=== PATIENT | male | born 1930 | race Caucasian/White ===

== ENCOUNTER 2017-08-22 11:10 | Inpatient (IN) | payer OTHER ==
[~2017-08-22] VITALS: Ht 177.8 cm; Wt 73.8 kg
[~2017-08-22 11:10] MED LIST: CLOT1CRE47 TOP; INSDGIPEN SQ; LSN20 PO; NRV/10 PO; SILV1PAD9 EX; [UNRECOGNIZED DRUG - CODE] EXT
--- NOTE | 2017-08-22 12:04 | DIAGNOSTIC IMAGING REPORT ---
CHEST ONE VIEW PORTABLE CLINICAL HISTORY: chest pain SOB dyspnea COMPARISON STUDY: 02/14/2015 FINDINGS: Mild cardia megaly. Several placement of a bipolar cardiac pacemaker. Prominent pulmonary vasculature. Possible small left effusion. IMPRESSION: Congestive heart failure. Small left effusion. The above report was generated using voice recognition software. It may contain grammatical, syntax or spelling errors. Electronically signed by: Patrick Aquino M.D. 08/22/2017 12:03 PM Dictated Date/Time: 08/22/2017 12:02 PM
[2017-08-22 12:10] LABS: HEMATOCRIT 35.2 % (42-52); HEMOGLOBIN 11.5 g/dL (14.0-18.0); MEAN CELL VOLUME 91.4 fL (80-100); MEAN CORPUSCULAR HEMOGLOBIN 29.9 pg (25-34); MEAN CORPUSCULAR HGB CONC 32.7 g/dl (32-36); MEAN PLATELET VOLUME 9.4 fL (7.4-10.4); PLATELET COUNT 258 K/uL (130-400); RED CELL DISTRIBUTION WIDTH CV 15.2 % (11.5-14.5); RED CELL DISTRIBUTION WIDTH SD 51.2 fL (36.4-46.3); WHITE BLOOD COUNT 8.14 K/uL (4.8-10.8)
[2017-08-22 12:16] LABS: ALBUMIN 3.2 gm/dl (3.4-5.0); CALCIUM 8.4 mg/dl (8.5-10.1); CREATININE 2.14 mg/dl (0.60-1.40); POTASSIUM 4.8 mmol/L (3.5-5.1)
[2017-08-22 12:21] LABS: CKMB 11.8 ng/ml (0.5-3.6); TOTAL PROTEIN 6.6 gm/dl (6.4-8.2)
[2017-08-22] MEDS ORDERED: ASPIRIN 81 MG CHEW PO STA (12:25)
--- NOTE | 2017-08-22 12:29 | EMERGENCY ROOM VISIT NOTE ---
History Report prepared by Cirilo: Abraham Gilmore Under the Supervision of: Dr. Dusty Shirley M.D. First contact with patient: 11:51 Chief Complaint: CHEST PAIN Stated Complaint: CHEST PAIN, SOB Nursing Triage Summary: pt /co left upper chest pain for several days with c/o SOB and a cough pt states that he is coughing up white sputum no LE edema History of Present Illness The patient is a 86 year old male who presents to the Emergency Room with complaints of persistent sharp left-sided chest pain that began about 5 days ago. He rates his pain a 5/10 in severity. He has a past medical history of CAD , critical aortic stenosis, and has a pacemaker in place. He is currently being workup to eventually have a TAVR procedure. When his pain began, the patient was being very active outside, cutting and moving wood. He then began to have this chest with associated shortness of breath. His pain persisted throughout this time, but worsened with exertion. He is also experiencing a productive cough, nausea, and lightheadedness. He denies any swelling to his legs. He took Aspirin 81 mg PO this morning. Source of History: patient Onset: 5 days ago Position: chest (left) Symptom Intensity: 5/10 Quality: sharp Timing: constant Modifying Factors (Worsening): exertion Associated Symptoms: + cough, + SOB, + nausea Note: He is experiencing lightheadedness. He denies any leg swelling. Review of Systems See HPI for pertinent positives & negatives. A total of 10 systems reviewed and were otherwise negative. Past Medical & Surgical Medical Problems: (1) CKD (chronic kidney disease) stage 3, GFR 30-59 ml/min (2) Coronary artery disease (3) Diabetes mellitus, type II (4) Diastolic CHF, chronic (5) Diverticulosis (6) Essential hypertension (7) Gangrene of foot (8) Heart block AV second degree (9) Intra-abdominal abscess (10) Peripheral vascular disease Surgical Problems: (1) Status post cholecystectomy (2) Status post exploratory laparotomy (3) Status post transmetatarsal amputation of foot Family History No significant family history Social History Smoking Status: Never Smoker Alcohol Use: none Drug Use: none Marital Status: single, Housing Status: lives alone Occupation Status: retired Current/Historical Medications Scheduled Amlodipine (Norvasc), 10 MG PO DAILY Aspirin (Aspirin Ec), 81 MG PO DAILY Coenzyme Q10 (Ubidecarenone) (Coq-10), 100 MG PO DAILY Ferrous Sulfate (Kp Ferrous Sulfate), 325 MG PO DAILY Insulin Glargine (Lantus Solostar), 8 UNITS SC QPM Lisinopril (Zestril), 20 MG PO DAILY Allergies Coded Allergies: No Known Allergies (Unverified , 08/22/17) Physical Exam Vital Signs Date Time Temp Pulse Resp B/P (MAP) Pulse Ox O2 Delivery O2 Flow Rate FiO2 08/22/17 12:34 91 20 97/61 93 Room Air 08/22/17 12:20 88 08/22/17 11:43 94 Room Air 08/22/17 11:14 36.7 91 20 92/61 98 Room Air Physical Exam GENERAL: Patient is a healthy-appearing well-nourished male HEAD: Normocephalic atraumatic EYES: Ocular movements intact pupils equal and react to light OROPHARYNX mucous membranes are moist no exudates present no erythema or edema present NECK: Supple no nuchal rigidity CHEST: Good equal expansion LUNGS: Clear and equal to auscultation CARDIAC: Grade 3/6 systolic murmur. Normal S1 and S2 ABDOMEN: Soft nontender no guarding BACK: No CVA tenderness EXTREMITIES: No pain upon palpation normal muscle strength in all groups no clubbing cyanosis or edema, there is a chronic deformity to the LLE. NEURO: Patient is following commands and answering questions appropriately. Alert and oriented x3 Cranial Nerves 2-12 grossly intact Medical Decision & Procedures ER Provider Diagnostic Interpretation: Radiology results as stated below per my review and radiologist interpretation: CHEST ONE VIEW PORTABLE CLINICAL HISTORY: chest pain SOB dyspnea COMPARISON STUDY: 02/14/2015 FINDINGS: Mild cardia megaly. Several placement of a bipolar cardiac pacemaker. Prominent pulmonary vasculature. Possible small left effusion. IMPRESSION: Congestive heart failure. Small left effusion. The above report was generated using voice recognition software. It may contain grammatical, syntax or spelling errors. Electronically signed by: Patrick Aquino M.D. 08/22/2017 12:03 PM Dictated Date/Time: 08/22/2017 12:02 PM Laboratory Results 08/22/17 11:25 08/22/17 11:25 Test 08/22/17 11:25 08/22/17 11:45 08/22/17 12:32 Red Blood Count 3.85 M/uL (4.7-6.1) Mean Corpuscular Volume 91.4 fL (80-100) Mean Corpuscular Hemoglobin 29.9 pg (25-34) Mean Corpuscular Hemoglobin Concent 32.7 g/dl (32-36) RDW Standard Deviation 51.2 fL (36.4-46.3) RDW Coefficient of Variation 15.2 % (11.5-14.5) Mean Platelet Volume 9.4 fL (7.4-10.4) Prothrombin Time 10.7 SECONDS (9.0-12.0) Prothromb Time International Ratio 1.0 (0.9-1.1) Activated Partial Thromboplast Time 29.0 SECONDS (21.0-31.0) Partial Thromboplastin Ratio 1.1 Anion Gap 12.0 mmol/L (3-11) Est Creatinine Clear Calc Drug Dose 24.6 ml/min Estimated GFR () 30.9 Estimated GFR (Non- 26.7 BUN/Creatinine Ratio 21.6 (10-20) Calcium Level 8.4 mg/dl (8.5-10.1) Total Bilirubin 0.5 mg/dl (0.2-1) Aspartate Amino Transf (AST/SGOT) 42 U/L (15-37) Alanine Aminotransferase (ALT/SGPT) 34 U/L (12-78) Alkaline Phosphatase 84 U/L (45-117) Total Creatine Kinase 142 U/L (39-308) Creatine Kinase MB 11.8 ng/ml (0.5-3.6) Creatine Kinase MB Ratio 8.3 (0-3.0) Troponin I 5.360 ng/ml (0-0.045) Pro-B-Type Natriuretic Peptide > 64092 pg/ml (0-1800) Total Protein 6.6 gm/dl (6.4-8.2) Albumin 3.2 gm/dl (3.4-5.0) Globulin 3.4 gm/dl (2.5-4.0) Albumin/Globulin Ratio 0.9 (0.9-2) Bedside Troponin I 5.510 ng/ml (0-0.045) Influenza Type A Antigen Neg for Influ A (NEG) Influenza Type B Antigen Neg for Influ B (NEG) Labs reviewed by ED physician. Medications Administered Medications (Trade) Dose Ordered Sig/Isaiah Route Start Time Stop Time Status Last Admin Dose Admin Aspirin (Aspirin Chew) 324 mg NOW STAT PO 08/22/17 12:25 08/22/17 12:27 DC 08/22/17 12:34 324 MG ECG Indication: chest pain Rate (beats per minute): 99 Rhythm: other (Paced) Findings: no acute ischemic change, no ectopy Change: Patient's electrocardiogram per my interpretation. ED Course 1151: Past medical records reviewed. The patient was evaluated in room C6. A complete history and physical examination was performed. 1225: Ordered Aspirin 324 mg PO 1228: I discussed the patient's case with Dr. Xiong of [facility] Cardiology at this time. He will come to the ER to evaluate the patient. 1316: Upon reexamination the patient is resting. I discussed results and treatment plan with the patient. He and his daughter verbalize agreement and understanding. I spoke with Dr. Estrada from the [facility] Hospitalist Service. The patient will be evaluated for further management. Medical Decision Differential diagnosis: Etiologies such as cardiac ischemia, aortic dissection, pulmonary embolism, pneumonia, pneumothorax, musculoskeletal, infections, pericarditis, myocarditis , esophageal rupture, gastrointestinal, as well as others were entertained. This is an 86-year-old male who presents emergency department complaining of chest pain with exertion over the past 5 days. The patient has a history of critical aortic stenosis and has been waiting to go to the [facility]. Despite this the patient and his daughter had to be redirected numerous times to keep them on track with the story. Due to the critical aortic stenosis the patient was given aspirin. He has a nondiagnostic EKG due to his pacer. Because of his comorbidities he was immediately discussed with cardiology who agreed to come and see the patient. They discussed the case with the hospitalist service. In the emergency department the patient was started on Lasix as well as a heparin drip. His troponin CK and MB fractions are all elevated consistent with an NSTEMI. Medication Reconcilliation Current Medication List: was personally reviewed by me Blood Pressure Screening Patient's blood pressure: Low blood pressure Consults Time Called: 1220 Consulting Physician: Dr. Xiong - [facility] Returned Call: 1228 We discussed the patient's case. He will be into the ER to evaluate the patient. Additional Consults: Time Called: 1310 Consulted Physician: Dr. Sean Arellano Hospitalist Returned Call: 1316 Additional Comments: I discussed the patient's case with Dr. Estrada, they have agreed to evaluate the patient for further management and care. Impression Primary Impression: NSTEMI (non-ST elevated myocardial infarction) Critical Care I have personally spent greater than 30 minutes of critical care time in the direct management of this patient. This includes bedside care, interpretation of diagnostic studies, and testing, discussion with consultants, patient, and family members, and other required patient management activities. This 30 minutes is in excess of all separately billable procedures. Scribe Attestation The scribe's documentation has been prepared under my direction and personally reviewed by me in its entirety. I confirm that the note above accurately reflects all work, treatment, procedures, and medical decision making performed by me. Departure Information Dispostion Being Evaluated By Hospitalist Referrals Ricki Juarez D.O. (PCP) Patient Instructions [facility]
[2017-08-22] MEDS ORDERED: COEN100C11 PO (12:35)
[2017-08-22] MEDS ORDERED: FERR1TAB13 PO (12:35)
[2017-08-22] MEDS ORDERED: AMLO-114 PO (12:35)
[2017-08-22] MEDS ORDERED: ASPI81TA28 PO (12:35)
[2017-08-22] MEDS ORDERED: INSDGIPEN SC (12:35)
[2017-08-22] MEDS ORDERED: LISI-725 PO (12:35)
--- NOTE | 2017-08-22 13:11 | Cardiology Progress Note ---
Cardiology Progress Note Date of Service Aug 22, 2017. Cardiology Progress Note Cardiology consultation in process. Patient known to the undersigned having seen him as outpatient in 04/2017. Pt has history of critically severe AV stenosis and intermittent high grade AV block. Pt underwent dual chamber PPM in 05/2017. He present with 5 days of severe shortness of breath with minimal exertion, non productive cough without fever, and chest pain. EKG V paced rhythm at 99 bpm, non diagnostic for ischemia given RV pacing. Troponin =5 ng/ml. Pt seen acutely in ED per request of Dr Shirley. Flu screen has been completed and results are pending. At present I believe pt's presentation is consistent with progression of symptomatic and heart failure, perhaps with superimposed influenza or other respirator tract infection rather than acute OK. CP he describes currently is low grade, mild and may be in part due to the severe cough he has demonstrated. Baseline creatinine was 1.7 mg/dl in 05/2017 and 2 mg/dl today. Proceed with furosemide 40 mg IV. UF heparin for medical therapy of OK, although I do not think ACS is the definite culprit given known critical . Given acute kidney injury and comorbidities, will proceed with cautious medical therapy rather than proceeding to the specialist employee labor relations for emergent angiography in this frail 86 year old man.
[2017-08-22] MEDS ORDERED: FUROSEMIDE INJ 40 MG in SYRINGE 0 ML IV ONE ×2 (13:15→14:45)
[2017-08-22] MEDS ORDERED: HEPARIN 25000 UNIT/500 ML D5W ONE (13:38)
[2017-08-22 13:45] LABS: INFLUENZA B ANTIGEN Neg for Influ B (NEG)
[2017-08-22] MEDS ORDERED: ACETAMINOPHEN 325 MG TAB PO PRN (13:45)
[2017-08-22 14:27] VITALS: O2SAT 98; Ht 177.8 cm; Wt 73.8 kg
--- NOTE | 2017-08-22 14:35 | Cardiology Consultation ---
Cardiology Consultation Date of Consultation: Aug 22, 2017 History of Present Illness Ganesh Segura is an 86 year old male seen in cardiology consultation in the ED per the request of Dr Shirley for the evaluation of shortness of breath, chest discomfort, and elevated troponin I. The patient's recent cardiac history dates back to April 2017. He had been seen by his primary care provider for preoperative evaluation prior to proposed knee surgery. At the time of that visit he was found to have significant bradycardia on EKG and progression of his previously noted cardiac murmur. He was therefore referred for a transthoracic echocardiogram at our office during which time intermittent high-grade AV block was noted. I was actually the provider reading echocardiograms that day and his echocardiogram had revealed progression of his previously noted aortic valve stenosis with findings consistent with critically severe aortic valve stenosis including peak velocity of 4.7 m/s and mean gradient approaching 60 mmHg. Arrangements were made for a cardiology visit the next day, but the patient did not keep this appointment and instead presented the next week. At that time we discussed that he was not a candidate for intervention and that his bradycardia needs to be addressed. Previously had findings of intermittent type I second-degree AV block, Wenckebach block on EKG performed a few years prior to that. The patient underwent outpatient cardiac monitoring recommended at that time his visit in April 2017 that revealed intermittent high-grade AV block. He ultimately went on to have a dual-chamber Medtronic pac[place] [facility] [place]. Review of his chart reveals that he attended his 1 week post-device pacemaker check on 06/01/17 at which time her pacemaker function was noted and the patient was paced from the right ventricle 99% at that time. It does not appear he kept future pacemaker check appointments per review of his chart. Regarding his aortic valve stenosis. I had discussed options with him regarding ongoing conservative noninvasive therapy or perhaps consideration toward transcatheter aortic valve replacement. He declined local evaluation including evaluation at [facility] favoring having an opinion at [facility]. The patient enjoys vigorous outdoor lifestyle for his age and degree of comorbidity. 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 He last 5 days he has had progressive decline in his activity tolerance with noted severe shortness of breath and fatigue with minimal activity such as walking a few steps. Breath in seeking medical treatment at first he has just been resting. His daughter who is sitting with him at the bedside in the emergency room today notes that he would sit on the floor by his fireplace for relief. Over the last 5 days his symptoms have been progressive and is also had a vague low intensity chest discomfort that goes along with his shortness of breath and tiredness and is also developed a significant nonproductive cough. When he presented to the emergency room he was found to have heart rate in the upper 90 be per minute range with ventricular paced rhythm. His troponin was elevated at 5.5 ng/ml. Assessment the patient emergently for further evaluation. During my assessment the patient he provided the above history. He describes that his most significant complaints are the cough, shortness of breath, and tiredness. Severe chest pain is not his chief complaint and describes a vague mild discomfort at the lower margin of the left ribs. Past Medical/Surgical History Problem List: Medical Problems: (1) CKD (chronic kidney disease) stage 3, GFR 30-59 ml/min (2) Coronary artery disease (3) Diabetes mellitus, type II (4) Diastolic CHF, chronic (5) Diverticulosis (6) Essential hypertension (7) Gangrene of foot (8) Heart block AV second degree (9) Intra-abdominal abscess (10) Peripheral vascular disease Surgical Problems: (1) Status post cholecystectomy (2) Status post exploratory laparotomy (3) Status post transmetatarsal amputation of foot History Past Medical History: Critically severe aortic valve stenosis as noted above Intermittent high-grade AV block, permanent dual-chamber Medtronic pacemaker May, Social History: Lives independently, his daughter lives close by and offers assistance Review Of Systems 10 point review of systems was performed and is negative with the exception of that above. He denies any subjective fevers or myalgias Allergies Coded Allergies: No Known Allergies (Unverified , 08/22/17) Medications Reported Home Medications Medications Dose Route/Sig Max Daily Dose Days Date Category Lantus Solostar (Insulin Glargine) 100 Unit/Ml Inj 8 Units SC QPM 08/22/17 Reported Coq-10 (Coenzyme Q10 (Ubidecarenone)) 100 Mg Cap 100 Mg PO DAILY 08/22/17 Reported Kp Ferrous Sulfate (Ferrous Sulfate) 325 Mg Tab 325 Mg PO DAILY 08/22/17 Reported Zestril (Lisinopril) 20 Mg Tab 20 Mg PO DAILY 08/22/17 Reported Aspirin Ec (Aspirin) 81 Mg Tab 81 Mg PO DAILY 08/22/17 Reported Norvasc (Amlodipine Besylate) 10 Mg Tab 10 Mg PO DAILY 08/22/17 Reported Physical Exam Vital Signs (Last 8hrs): Last 8 Hrs Date Time Temp Pulse Resp B/P (MAP) Pulse Ox O2 Delivery O2 Flow Rate FiO2 08/22/17 13:49 95 24 95/68 98 Room Air 08/22/17 12:34 91 20 97/61 93 Room Air 08/22/17 12:20 88 08/22/17 11:43 94 Room Air 08/22/17 11:14 36.7 91 20 92/61 98 Room Air General Appearance: Alert and Oriented x3. Acutely on appearance Head: Normocephalic Atraumatic. Eyes: PERRLA, EOMI, conjunctiva and sclera clear Neck: Supple. No carotid bruits noted. No JVD. No HJD. Respiratory: Breath sounds clear to auscultation bilaterally. Decreased breath sounds bilaterally at the bases Cardiovascular: Reg rate and rhythm. 08/22 systolic murmur Abdomen: Normal bowel sounds, soft nontender. no abdominal bruits. Extremities: No edema, no clubbing or cyanosis. distal pulses 2/4 bilaterally. Neuro: No focal deficits. Psychiatric: Normal affect. Data Last Resulted 08/22/17 11:25 Last Resulted 08/22/17 11:25 Past 24 Hours Test 08/22/17 11:25 Range/Units Creatine Kinase MB 11.8 H 0.5-3.6 ng/ml Creatine Kinase MB Ratio 8.3 H 0-3.0 Prothromb Time International Ratio 1.0 0.9-1.1 Prothrombin Time 10.7 9.0-12.0 SECONDS Total Creatine Kinase 142 39-308 U/L [id number] troponin 5.5 ng/ml. Influenza screen negative. CXR: radiology report, findings of CHF and small left pleural effusion EKG performed 08/22/17 reveals Vpaced rhythm at 99 bpm. Changes of acute ischemia cannot be excluded with J point elevation in lead V1 and lateral ST depression Assessment & Plan Impression: 86 year old male 1. Patient presents with a five-day history of debilitating fatigue, shortness of breath with minimal exertion, progressive nonproductive cough, and low level chest discomfort 2. Known history of critically severe aortic valve stenosis based on echocardiogram in April 2017, normal LVEF at that time 3. History of intermittent high-grade AV block, prompting implantation of dual- chamber pacemaker May, Discussion/recommendations: Although the patient denies any subjective fever, he has a significant cough and certainly he is at risk for having a superimposed pulmonary infection such as influenza. His initial screening tests were negative, but plan on proceeding with the confirmatory PCR testing. The patient was initially assessed with the intent of determining if emergent cardiac catheterization was necessary. He has a ventricular paced rhythm which limits the diagnostic sensitivity, but does appear that he has some degree of J- point elevation as well as ST segment depression. His symptoms however have been ongoing for greater then 5 days which is out of the typical window of benefit for emergent cardiac catheterization and at present, he minimizes any symptoms of chest pain and describes shortness of breath as being his predominant symptom. This of course could all be due to his underlying severe aortic valve stenosis with a superimposed viral infection, or he could have existent coronary heart disease. His baseline creatinine in May 2017 was 1.7, and his creatinine at present was 2.14 mg/dL. His systolic blood pressures little low in the 90 mmHg range, but this is not too much different from his baseline blood pressure. At present, recommend proceeding with conservative therapy including furosemide 40 mg IV 1. I'm not going to order any additional diuretic doses in favor of reassessing his blood pressure, kidney function, and clinical response. Proceed with unfractionated heparin for treatment of possible underlying coexistent coronary heart disease. Will repeat his echocardiogram. Given the timing of his symptoms had been progressive over 5 days with minimal current chest discomfort, somewhat equivocal EKG changes in the setting of ventricular paced rhythm, clinical history of critically severe aortic valve stenosis, and other comorbidities including presumed peripheral arterial disease and renal insufficiency, I do not think emergent cardiac catheterization is appropriate management for him at this time.
--- NOTE | 2017-08-22 17:56 | ECHOCARDIOGRAM REPORT ---
*NOTICE TO RECEIVING LIBERTARIAN AGENCY This information is strictly Confidential and protected under [place] law. [place] law prohibits you from making any further disclosure of this information unless further disclosure is expressly permitted by the written consent of the person to whom it pertains or is authorized by law. A general authorization for the release of medical or other information is not sufficient for this purpose. Hospital accepts no responsibility if the information is made available to any other person, INCLUDING THE PATIENT. Interpretation Summary * Name: GERARDO NICK Study Date: 08/22/2017 04:00 PM BP: 95/68 mmHg * Patient Location: C.2T\S\S235\S\1 HR: 96 * : 1930 (M/d/yyyy) Gender: Male Height: 70 in * Age: 86 yrs Ethnicity: [place] Weight: 167 lb * Ordering Physician: Silvestre Xiong * Referring Physician: Self, Referred * Performed By: Kourtney Alvarez RDCS * * Reason For Study: CHEST PAIN, CHF, KNOWN CRITICALLY SEVERE * BSA: 1.9 m2 * -- Conclusions -- * A ventricular paced rhythm at 97 bpm was present during the echocardiogram, with Doppler data consistent with sinus tachycardia. * There is moderate concentric left ventricular hypertrophy. * Abnormal septal wall motion is present consistent with right ventricular pacing. * There is diffuse left ventricular hypokinesis to akinesis with akinesis of the apical segments. * Left ventricular systolic function is severely reduced. * The qualitative left ventricular ejection fraction is < 25%. * The aortic valve is severely calcified with severe restriction of the cusps. * The Doppler and 2D assessment of aortic valve stenosis are discordant. * The aortic valve stenosis appears severe, and the severity appears to be underestimated by the Doppler assessment. * Compared to the prior outpatient echocardiogram study performed at [facility] in April,, there has been and interval placement of a pacemaker. * There has been an interval decline in the LVEF. * The Doppler data was consistent with severe on the prior study, and perhaps the low gradients calculated on the present study are due to an interval decline in LVEF and cardiac output. Procedure Details * A contrast injection of Definity was performed to improve assessment of LV function. * Contrast was injected into an intravenous site in the left arm. * One vial of Definity ultrasound contrast was diluted in normal saline to a total volume of 10 ml. A total of '2' ml of solution was administered during imaging. * Lot # [id number] of Definity utilized for procedure. * Expiration date 1 SEP 04. * The attending nurse who injected the contrast agent was JORDANA LYLES. * A complete two-dimensional transthoracic echocardiogram was performed (2D, M-mode, Doppler and color flow Doppler). Left Ventricle * The left ventricle is normal in size. * There is moderate concentric left ventricular hypertrophy. * Left ventricular systolic function is severely reduced. * The qualitative left ventricular ejection fraction is < 25%. * Abnormal septal wall motion is present consistent with right ventricular pacing. There is diffiuse left ventricular hypokinesis to akinesis with akinesis of the apical segments. Right Ventricle * The right ventricle is normal in size and function. * The right ventricular systolic function is normal as assessed by tricuspid annular plane systolic excursion (TAPSE) (normal >1.5 cm). Atria * The left atrium is severely dilated. * The right atrium is mildly dilated. * A pacemaker lead is noted in the right atrium. * There is no evidence of atrial septal defect, but resolution does not allow assessment for a patent foramen ovale. Mitral Valve * There is moderate mitral annular calcification. * There is no mitral valve stenosis. * There is mild mitral regurgitation. Tricuspid Valve * The tricuspid valve is normal. * There is no tricuspid stenosis. * There is mild tricuspid regurgitation. Aortic Valve * The aortic valve is trileaflet. * The aortic valve is severely calcified with severe restriction of the cusps. * Severe valvular aortic stenosis. * There is no significant aortic regurgitation. Pulmonic Valve * The pulmonary valve is inadequately visualized, but the Doppler data is adequate for interpretation. * Pulmonic stenosis is absent. * Mild pulmonic valvular regurgitation. Great Vessels * The aortic root and proximal ascending aorta are normal sized. Pericardium/Pleural * There is no pericardial effusion. * Moderate size left pleural effusion. Right Ventricle * A pacemaker lead is noted in the right ventricle. Great Vessels * Normal inferior vena cava size and collapsability with sniff indicates a normal right atrial pressure of 3 mmHg MMode 2D Measurements and Calculations IVSd 1.3 cm IVSs 1.8 cm LVIDd 4.6 cm LVIDs 3.7 cm LVPWd 1.5 cm LVPWs 1.9 cm IVS/LVPW 0.85 FS 19.1 % EDV(Teich) 95.9 ml ESV(Teich) 58.0 ml EF(Teich) 39.5 % EDV(cubed) 95.5 ml ESV(cubed) 50.5 ml EF(cubed) 47.1 % % IVS thick 45.0 % % LVPW thick 28.0 % LV mass(C)d 245.0 grams LV mass(C)dI 126.7 grams/m\S\2 LV mass(C)s 296.1 grams LV mass(C)sI 153.2 grams/m\S\2 SV(Teich) 37.9 ml SI(Teich) 19.6 ml/m\S\2 SV(cubed) 45.0 ml SI(cubed) 23.3 ml/m\S\2 LA dimension 4.4 cm LVOT diam 1.9 cm LVOT area 2.9 cm\S\2 LVAd ap4 34.1 cm\S\2 LVLd ap4 8.5 cm EDV(MOD-sp4) 109.8 ml EDV(sp4-el) 117.0 ml LVAs ap4 27.5 cm\S\2 LVLs ap4 8.1 cm ESV(MOD-sp4) 75.4 ml ESV(sp4-el) 79.6 ml EF(MOD-sp4) 31.4 % EF(sp4-el) 32.0 % SV(MOD-sp4) 34.5 ml SI(MOD-sp4) 17.8 ml/m\S\2 SV(sp4-el) 37.4 ml SI(sp4-el) 19.3 ml/m\S\2 Doppler Measurements and Calculations MV E max agata 107.2 cm/sec MV dec time 0.15 sec Ao V2 max 357.2 cm/sec Ao max PG 51.0 mmHg Ao max PG (full) 49.9 mmHg Ao V2 mean 258.9 cm/sec Ao mean PG 29.8 mmHg Ao mean PG (full) 29.3 mmHg Ao V2 VTI 68.9 cm MARTINA(I,A) 0.41 cm\S\2 MARTINA(I,D) 0.41 cm\S\2 MARTINA(V,A) 0.43 cm\S\2 MARTINA(V,D) 0.43 cm\S\2 LV V1 max PG 1.1 mmHg LV V1 mean PG 0.52 mmHg LV V1 max 52.9 cm/sec LV V1 mean 34.1 cm/sec LV V1 VTI 9.9 cm SV(LVOT) 28.3 ml SI(LVOT) 14.6 ml/m\S\2 TR max agata 318.9 cm/sec
--- NOTE | 2017-08-22 19:01 | History and Physical ---
History & Physical Date & Time of Service: Aug 22, 2017 at 18:53 Chief Complaint: Elevated Troponin Primary Care Physician: Ricki Juarez D.O. History of Present Illness Source: patient, family (daughter at bedside), clinic records, hospital records This is a 86yo M with a PMH of severe aortic stenosis, complete heart block s/p pacemaker placement in May 2017, DM II, HTN, CKD III and other medical problems listed below who presents with worsening chest pain/SOB over the last 4 days. States that he has experienced intermittent chest pain with exertion over the past month when doing activities in the yard like splitting wood. He has maintained an active lifestyle despite pain but has experienced worsening SOB over the past few days as well as continued substernal chest pain. Worse with exertion and coughing. Has not been able to work in the yard and has been sitting inside. Daughter has been living with patient for the last month due to decline in health. States that her father is under-reporting severity of CP and SOB over the past 4 days. Per daughter, patient has lightheadedness every time he stands and is requiring help with ambulation. Very fatigued. Has not felt well for the past week, endorsing productive cough, lightheadedness, body aches and nausea. Denies fever, chills, vomiting, diarrhea. Decreased PO intake. Was previously seen by Dr. Xiong in Apr 2017 for pre-op evaluation for knee surgery. EKG with bradycardia and echo showed critically severe aortic stenosis and intermittent complete heart block. Had a pacemaker placed at [facility] in May. As for aortic stenosis, patient states he has been reading about the TAVR procedure and is considering it. In ED, patient's troponin was elevated at 5.5. EKG with ventricular-paced rhythm. CXR with CHF. 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 Social History Smoking Status: Never Smoker Drug Use: none Marital Status: single, Housing status: lives alone Occupational Status: retired Immunizations History of Influenza Vaccine: No History of Tetanus Vaccine?: Yes Tetanus Immunization Date: Jan 01, 2001 History of Pneumococcal: Yes Pneumococcal Date: Jan 04, 2012 History of Hepatitis B Vaccine: Yes Hepatitis Immunization Date: Jan 01, 2001 Multi-Drug Resistant Organisms History of MDRO: Yes Type of MDRO: MRSA Allergies Coded Allergies: No Known Allergies (Unverified , 08/22/17) Home Medications Scheduled Amlodipine (Norvasc), 10 MG PO DAILY Aspirin (Aspirin Ec), 81 MG PO DAILY Coenzyme Q10 (Ubidecarenone) (Coq-10), 100 MG PO DAILY Ferrous Sulfate (Kp Ferrous Sulfate), 325 MG PO DAILY Insulin Glargine (Lantus Solostar), 8 UNITS SC QPM Lisinopril (Zestril), 20 MG PO DAILY Review of Systems Ten systems reviewed and negative except as noted in the HPI. Constitutional: + fatigue, No fever, No chills, No sweats Eyes: No worsening of vision Respiratory: + cough, + shortness of breath, + dyspnea on exertion, + dyspnea at rest, No sputum, No wheezing Cardiovascular: + chest pain, + orthopnea, No PND, No edema, No claudication, No palpitations, No problem reported Abdomen: No pain, No nausea, No vomiting, No diarrhea, No constipation Musculoskeletal: No joint pain, No muscle pain, No swelling, No calf pain, No problem reported Neurologic: + numbness/tingling, No weakness Integumentary: No rash, No new/changing skin lesions, No color change Physical Exam Vital Signs Date Time Temp Pulse Resp B/P (MAP) Pulse Ox O2 Delivery O2 Flow Rate FiO2 08/22/17 16:00 Room Air 08/22/17 14:27 98 Room Air 08/22/17 13:49 95 24 95/68 98 Room Air 08/22/17 12:34 91 20 97/61 93 Room Air 08/22/17 12:20 88 08/22/17 11:43 94 Room Air 08/22/17 11:14 36.7 91 20 92/61 98 Room Air General Appearance: WD/WN, no apparent distress, + pertinent finding (Resting comfortably, ) Head: normocephalic, atraumatic Eyes: normal inspection, PERRL, sclerae normal ENT: normal ENT inspection (hard of hearing ), pharynx normal (dry mucous membranes ) Neck: supple, no JVD, trachea midline Respiratory/Chest: chest non-tender, lungs clear, normal breath sounds, no respiratory distress, no accessory muscle use Cardiovascular: regular rate, rhythm, no murmur, normal peripheral pulses, + systolic murmur (2/6 systolic murmur at base ) Abdomen/GI: non tender, soft, no organomegaly Back: normal inspection Extremities/Musculoskelatal: normal inspection, no calf tenderness, + pertinent finding (Trace edema of BLE. S/p L transmetatarsal amputation) Neurologic/Psych: no motor/sensory deficits, alert, normal mood/affect, oriented x 3 Skin: normal color, warm/dry Diagnostics Laboratory Results Results Past 24 Hours Test 08/22/17 11:25 08/22/17 11:45 08/22/17 12:32 08/22/17 16:56 Range/Units White Blood Count 8.14 4.8-10.8 K/uL Red Blood Count 3.85 4.7-6.1 M/uL Hemoglobin 11.5 14.0-18.0 g/dL Hematocrit 35.2 42-52 % Mean Corpuscular Volume 91.4 80-100 fL Mean Corpuscular Hemoglobin 29.9 25-34 pg Mean Corpuscular Hemoglobin Concent 32.7 32-36 g/dl RDW Standard Deviation 51.2 36.4-46.3 fL RDW Coefficient of Variation 15.2 11.5-14.5 % Platelet Count 258 130-400 K/uL Mean Platelet Volume 9.4 7.4-10.4 fL Prothrombin Time 10.7 9.0-12.0 SECONDS Prothromb Time International Ratio 1.0 0.9-1.1 Activated Partial Thromboplast Time 29.0 21.0-31.0 SECONDS Partial Thromboplastin Ratio 1.1 Sodium Level 136 136-145 mmol/L Potassium Level 4.8 3.5-5.1 mmol/L Chloride Level 106 98-107 mmol/L Carbon Dioxide Level 18 21-32 mmol/L Anion Gap 12.0 3-11 mmol/L Blood Urea Nitrogen 46 7-18 mg/dl Creatinine 2.14 0.60-1.40 mg/dl Est Creatinine Clear Calc Drug Dose 24.6 ml/min Estimated GFR () 30.9 Estimated GFR (Non- 26.7 BUN/Creatinine Ratio 21.6 10-20 Random Glucose 179 70-99 mg/dl Calcium Level 8.4 8.5-10.1 mg/dl Total Bilirubin 0.5 0.2-1 mg/dl Aspartate Amino Transf (AST/SGOT) 42 15-37 U/L Alanine Aminotransferase (ALT/SGPT) 34 12-78 U/L Alkaline Phosphatase 84 45-117 U/L Total Creatine Kinase 142 39-308 U/L Creatine Kinase MB 11.8 0.5-3.6 ng/ml Creatine Kinase MB Ratio 8.3 0-3.0 Troponin I 5.360 0-0.045 ng/ml Pro-B-Type Natriuretic Peptide > 99743 0-1800 pg/ml Total Protein 6.6 6.4-8.2 gm/dl Albumin 3.2 3.4-5.0 gm/dl Globulin 3.4 2.5-4.0 gm/dl Albumin/Globulin Ratio 0.9 0.9-2 Bedside Troponin I 5.510 0-0.045 ng/ml Influenza Type A Antigen Neg for Influ A NEG Influenza Type B Antigen Neg for Influ B NEG Bedside Glucose 168 70-99 mg/dl Diagnostic Radiology CXR: IMPRESSION: Congestive heart failure. Small left effusion. EKG Ventricular paced rhythm at 99 bpm. Impression Assessment and Plan This is a 86yo M with a PMH of severe aortic stenosis, complete heart block s/p pacemaker placement in May 2017, DM II, HTN, CKD III and other medical problems listed below who presents with worsening chest pain/SOB over the last 4 days. NSTEMI: -Troponin elevated to 5.5 -EKG in ventricular-paced rhythm. Per cardiology read, some degree of J-point elevation as well as ST segment depression. -CXR with evidence of CHF -Cardio consulted: -Difficult to assess severity of CP since patient seems to minimize symptoms -Out of typical window of benefit for emergent cardiac cath -Could be do to severe , underlying infection or CAD -Initiate IV heparin for medical management -Due to age and comorbidities, emergent cardiac cath not appropriate at this time -Trend troponin -Avoid vasodilators -Echo with EF < 20%, LV with hypokinesis to akinesis, severe aortic stenosis -Cardiology plans to repeat echo tomorrow -Telemetry Acute on chronic diastolic and systolic CHF: -Diastolic HF seen on previous echo but EF was normal as of Apr 2017 -Today, echo with EF < 20%, LV with hypokinesis to akinesis, severe aortic stenosis -Given lasix 40mg x 1 -Cautious diureses in setting of YAN, SBP in 90s -Strict I&Os, daily weights -Repeat CXR tomorrow YAN on CKD III: -Cr elevated to 2.14 -Baseline Cr ~1.5 -Decreased PO intake for the past few days 2/2 nausea -Avoid nephrotoxic agents when able -Unable to tolerate fluids in setting of severe , CHF Fatigue, nausea, malaise: -Flu PCR pending DM II: -Recent a1c 5.18 Apr 2017 -Recheck a1c -Glycemic consult placed -Hold home agents -Basal bolus regimen -Diabetic diet -BG checks AC HS HTN: -BP consistently 90s/60s today -Hold home dose amlodipine, lisinopril for AM -Appreciate cardio recs -Monitor DVT Ppx: IV heparin Code status: FULL per my discussion today with patient PCP: Ann Dispo: Admitted to telemetry. Patient seen in collaboration with Dr. Estrada. Please see addendum. ATTENDING ADDENDUM: pt seen and examined, care co -ordinated care co ordinated with Joseline Aguilar labs and images reviewed 86 yo M with severe Aortic stenosis ,ischemic cardiomyopathy presented with 2 days hx of cough , GOSS , chest heaviness and angina symptom Troponin elevated ~6 , with EKG changed in ant and lateral leads NSTEMI -possible due to flu like symptom -severe valvular heart disease / cardiomyopathy evaluated by Cardiology in ER IV Heparin ,conservative approach Acute CHF with systolic dysfunction /ischemic cardiomyopathy EF < 20% Cxry shows pulm congestion given IV lasix 40 mg X1 dose further diuretics dose not ordered due to YAN /borderline hypotension YAN on CKD stage 3 : due to dehydration ; poor PO intake , poor renal perfusion in setting of severe /Ischemic cardiomyopathy given Lasix X1 dose due to decompensated CHF in setting of NSTEMI follow PRP nephrology input requested Please follow documentation by Joseline Strickland PA-C for further discussion of other issues Iris Estrada MD Level of Care Telemetry Advanced Directives Existing Living Will: No Existing Power of Pot Press Operator: Yes (SAMSON BOB ) Resuscitation Status FULL RESUSCITATION VTE Prophylaxis VTE Risk Assessment Done? Y/N: Yes Risk Level: Moderate Given or contraindicated: Other Anticoagulation
[2017-08-22 19:22] VITALS: BP 99/64; PULSE 86; TEMP 36.7; O2SAT 92
[2017-08-22] MEDS ORDERED: GLUCAGON FOR INJ 1 MG VIAL SQ PRN (19:45)
[2017-08-22] MEDS ORDERED: DEXTROSE 50% 50 ML SYR IV PRN (19:45)
[2017-08-22] MEDS ORDERED: GLUCOSE 40% GEL 15 GM TUBE PO PRN (19:45)
[2017-08-22] MEDS ORDERED: MoRPHine SULFATE 2 MG/ML CARP IV PRN (19:45)
[2017-08-22] MEDS ORDERED: GLUCOSE 10 TABS/TUBE PO PRN (19:45)
[2017-08-22] MEDS ORDERED: GI COCKTAIL PO PRN (19:45)
[2017-08-22 19:58] LABS: PTT PATIENT 55.6 SECONDS (21.0-31.0)
[2017-08-22] MEDS ORDERED: PHARMACY GLYCEMIC MGMT CONSULT PRN (19:58)
[2017-08-22] MEDS ORDERED: ALUMINUM/MAGNESIUM SUSP 72 ML, LIDOCAINE HCL 2% VISCOUS SOLN 24 ML, BARCODE IDENTIFIER ... PO PRN ×2 (20:15)
[2017-08-22 21:04] LABS: INFLUENZA A PCR Neg for Influ A (NEG); INFLUENZA B PCR Neg for Influ B (NEG)
[2017-08-22] MEDS: INSULIN ASPART 100 UNITS/ML 3 ML PEN SC SCH (21:43)
[2017-08-22] MEDS: INSULIN GLARGINE SOLOSTAR 100 UNITS/ML 3 ML PEN SC SCH (21:44)
[2017-08-23] VITALS (7 sets, daily range): BP systolic 85–98; BP diastolic 50–63; PULSE 82–94; TEMP 36.6–36.9; O2SAT 92–97
[2017-08-23 04:55] LABS: HEMATOCRIT 31.9 % (42-52); HEMOGLOBIN 10.8 g/dL (14.0-18.0); MEAN CELL VOLUME 90.6 fL (80-100); MEAN CORPUSCULAR HEMOGLOBIN 30.7 pg (25-34); MEAN CORPUSCULAR HGB CONC 33.9 g/dl (32-36); MEAN PLATELET VOLUME 9.3 fL (7.4-10.4); PLATELET COUNT 233 K/uL (130-400); RED CELL DISTRIBUTION WIDTH CV 15.4 % (11.5-14.5); RED CELL DISTRIBUTION WIDTH SD 50.8 fL (36.4-46.3); WHITE BLOOD COUNT 7.74 K/uL (4.8-10.8)
[2017-08-23 05:19] LABS: CREATININE 2.23 mg/dl (0.60-1.40); POTASSIUM 4.8 mmol/L (3.5-5.1)
[2017-08-23 05:27] LABS: PTT PATIENT 60.2 SECONDS (21.0-31.0)
[2017-08-23 07:22] LABS: HEMOGLOBIN A1C 5.7 % (4.5-5.6)
--- NOTE | 2017-08-23 07:29 | DIAGNOSTIC IMAGING REPORT ---
CHEST ONE VIEW PORTABLE CLINICAL HISTORY: 86 years-old Male presenting with CHF. TECHNIQUE: Portable upright AP view of the chest was obtained. COMPARISON: 08/22/2017. FINDINGS: Left subclavian pacer with leads to the right atrium and right ventricular apex. Atherosclerosis of aortic arch. Cardiac silhouette enlarged. Interval increase in patchy bilateral lung opacities and more dense hazy opacity at the left lung base. Trace bilateral pleural effusions may be present. Prominence of pulmonary vasculature. Bronchial wall cuffing. Degenerative changes of the spine and right acromioclavicular joint. Upper abdomen normal. IMPRESSION: 1. Cardiomegaly with findings concerning for pulmonary edema, stable to slightly worsened from prior. Trace bilateral pleural effusions may also be present. Electronically signed by: Dimitrios Lopez M.D. 08/23/2017 7:28 AM Dictated Date/Time: 08/23/2017 7:26 AM
[2017-08-23] MEDS: INSULIN ASPART 100 UNITS/ML 3 ML PEN SC SCH ×4 (08:06→20:57)
[2017-08-23] MEDS: ASPIRIN 81 MG ECTAB PO SCH (08:07)
[2017-08-23] MEDS: HEPARIN 25,000 UNIT/500ML D5W 500 ML IV PRN (09:22)
--- NOTE | 2017-08-23 11:20 | NEPHROLOGY CONSULTATION ---
DATE OF CONSULTATION: 08/23/2017 ATTENDING OF RECORD: Donn Maharaj MD REASON FOR CONSULTATION: YAN. HISTORY OF PRESENT ILLNESS: This is an 86-year-old male who has underlying severe aortic stenosis as well as history of complete heart block requiring a pacemaker with a history of hypertension and type 2 diabetes who presented with chest pain and shortness of breath over the last several days. Troponin was elevated. No indication for an emergent cardiac catheterization, initiated on IV heparin and trending the troponins. Echo showed a depressed ejection fraction with severe aortic stenosis. Underwent a repeat echo yesterday, which showed moderate concentric LVH, abnormal septal wall motion consistent with RV pacing, diffuse left ventricular hypokinesis to akinesis, systolic function severely reduced, EF less than 25%, severe aortic stenosis. The patient's creatinine was 2.14 on admission and this morning is up to 2.23, troponin has remained consistent in the 5s. The patient's creatinine baseline is around 1.5 and it came in the 2s and slowly trending up. The patient is comfortable this morning in a jovial mood, denying any symptoms, inquiring about plans for possible discharge in the future, although respectful of whenever we determine that to be appropriate. PAST MEDICAL HISTORY: CKD stage III, baseline creatinine of 1.5, history of complete heart block requiring a pacemaker, type 2 diabetes, hypertension, peripheral vascular disease, severe aortic stenosis, systolic and diastolic heart failure. PAST SURGICAL HISTORY: Cholecystectomy, partial amputation of the left foot, pacemaker, exploratory laparotomy of an intra-abdominal abscess in the past. FAMILY HISTORY: No renal disease in the family. SOCIAL HISTORY: No smoking, no alcohol, no drugs. Lives alone. REVIEW OF SYSTEMS: Positive shortness of breath with exertion. No more chest pain. Positive fatigue. Positive generalized weakness. Good appetite. No nausea or vomiting. No diarrhea or constipation. All other review of systems otherwise negative. CURRENT MEDICATIONS: Aspirin 81 mg a day, Lantus 8 units subQ at night, sliding scale insulin, heparin drip. PHYSICAL EXAMINATION: VITAL SIGNS: Temperature 36.8, pulse 88, respiratory rate 16, blood pressure is 87/50. GENERAL: Awake, alert, oriented x3. EYES: No scleral icterus. ENT: Moist mucous membranes. NECK: Supple. PULMONARY: Clear to auscultation. CARDIAC: 2/6 systolic murmur. ABDOMEN: Bowel sounds positive, soft, nontender. EXTREMITIES: No significant clubbing or cyanosis, mild edema, left transmetatarsal amputation. NEUROLOGICALLY: Nonfocal. DERM: No rash or ulcers noted. LABORATORY DATA: Sodium was 135, potassium 4.8, chloride is 106, bicarb is 23, BUN is 58, creatinine is 2.23, glucose is 150, hemoglobin A1c is 5.7, calcium is 8, troponin is 5.4. INR was 1. White count 7, H&H 10 and 31, platelet count is 233. Fluid negative. Chest x-ray shows cardiomegaly with findings concerning for pulmonary edema, trace bilateral pleural effusions. ASSESSMENT AND PLAN: Acute kidney injury on chronic kidney disease stage III in the setting of non-ST elevation myocardial infarction with an element of diastolic heart failure and cardiomyopathy, unable to tolerate fluids given the severe aortic stenosis, currently on a heparin drip per cardiology and treating supportively. No indication for an emergent dialysis at this time. Blood pressure is low and currently holding blood pressure medications at this time. We would like to obtain a renal ultrasound to further elucidate kidney disease and size of the kidneys. Hopefully, creatinine eventually improves back down to baseline once patient is feeling better; however, I expect creatinine to worsen before it starts to improve. At this point, no indication for an emergent dialysis. Continue gently intermittent diuresis as patient tolerates and we will discuss the case further with cardiology. LAZARO
--- NOTE | 2017-08-23 12:09 | Cardiology Follow-Up ---
Subjective General Date of Service: Aug 23, 2017. 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 Acute decompensation, newly diagnosed systolic heart failure, with new severe left ventricular systolic dysfunction, left ventricular ejection fraction less than 25% 2. Underlying history of critical severe aortic valve stenosis 3. Acute kidney injury, on chronic kidney disease 4. History of intermittent high-grade AV block, status post dual-chamber pacemaker May, Discussion/recommendations: The patient had a mild but flat elevation in his troponin levels of 5.3,5.28, and 5.44 ng/ml. I think this is compatible with CHF, significant myocardial strain, but I do not think the presenting symptoms was due to an acute myocardial infarction related to acute plaque rupture. We'll however continue 48 hours of unfractionated heparin. He denies any anginal symptoms at present and he states that shortness of breath is much improved. Chest x-ray performed yesterday revealed interstitial edema and left pleural effusion which appears to be moderate in size is visualized on his echocardiogram and his new compared to the chest x-ray performed in May post pacemaker at [facility]. He has developed interval reduction in his left ventricular ejection fraction which was normal in April 2017. In the meantime, he did have a pacemaker placed and he is frequently ventricular paced, however the wall motion abnormalities are not just related to the apex and interventricular septum as would be expected with a post pacemaker reduction in LVEF, and rather more global left ventricular systolic dysfunction is present and I think that given his critically severe aortic valve stenosis and this is likely due to the natural history of severe aortic valve stenosis without intervention. At present, proceed with supportive care with furosemide 20 mg IV. Continue to monitor creatinine daily. Nephrology input noted and appreciated. Proceed with initiation of low-dose metoprolol succinate 12.5 mg daily starting today. Use of beta roby is limited due to his relative low blood pressure. He is not a candidate for ELLEN / ARB, Aldactone , digoxin, or Entresto given his renal insufficiency. The patient had previously planned a second opinion at [facility] regarding transcatheter aortic valve replacement. Is my opinion however that in between April and now, he has had interval decline in his ejection fraction , and I feel that his aortic valve disease is likely inoperable at present from both a surgical AVR in transcatheter aortic valve replacement standpoint. Laboratory Results Last 24 Hours Test 08/22/17 12:32 08/22/17 16:56 08/22/17 19:05 08/22/17 19:26 Influenza Type A Antigen Neg for Influ A Influenza Type B Antigen Neg for Influ B Bedside Glucose 168 mg/dl Influenza Type A (RT-PCR) Neg for Influ A Influenza Type B (RT-PCR) Neg for Influ B Activated Partial Thromboplast Time 55.6 SECONDS Partial Thromboplastin Ratio 2.1 Troponin I 5.280 ng/ml Test 08/22/17 20:32 08/23/17 01:46 08/23/17 04:33 08/23/17 06:19 Bedside Glucose 177 mg/dl 145 mg/dl Troponin I 5.440 ng/ml White Blood Count 7.74 K/uL Red Blood Count 3.52 M/uL Hemoglobin 10.8 g/dL Hematocrit 31.9 % Mean Corpuscular Volume 90.6 fL Mean Corpuscular Hemoglobin 30.7 pg Mean Corpuscular Hemoglobin Concent 33.9 g/dl RDW Standard Deviation 50.8 fL RDW Coefficient of Variation 15.4 % Platelet Count 233 K/uL Mean Platelet Volume 9.3 fL Activated Partial Thromboplast Time 60.2 SECONDS Partial Thromboplastin Ratio 2.3 Sodium Level 135 mmol/L Potassium Level 4.8 mmol/L Chloride Level 106 mmol/L Carbon Dioxide Level 23 mmol/L Anion Gap 6.0 mmol/L Blood Urea Nitrogen 58 mg/dl Creatinine 2.23 mg/dl Est Creatinine Clear Calc Drug Dose 23.6 ml/min Estimated GFR () 29.4 Estimated GFR (Non- 25.4 BUN/Creatinine Ratio 25.9 Random Glucose 150 mg/dl Estimated Average Glucose 117 mg/dl Hemoglobin A1c 5.7 % Calcium Level 8.0 mg/dl Test 08/23/17 11:05 Bedside Glucose 224 mg/dl
[2017-08-23] MEDS ORDERED: METOPROLOL SUCC 25MG EXT REL TAB PO ONE (12:15)
[2017-08-23] MEDS ORDERED: FUROSEMIDE INJ 20 MG in SYRINGE 0 ML IV ONE (12:15)
--- NOTE | 2017-08-23 13:57 | Pharmacy Progress Note ---
Glycemic Control Intl Consult Date of Service Aug 23, 2017. Scope Glycemic Pharmacist consulted by [place] on 08/23/17 for glycemic control and to write orders per [facility] inpatient glycemic control protocol Objective Weight (Kilograms): 74.400 Accuchecks BSG (last 24hrs): Test 08/22/17 16:56 08/22/17 20:32 08/23/17 04:33 08/23/17 06:19 Bedside Glucose 168 mg/dl (70-99) 177 mg/dl (70-99) 145 mg/dl (70-99) Random Glucose 150 mg/dl (70-99) Test 08/23/17 11:05 Bedside Glucose 224 mg/dl (70-99) Laboratory Data (last 24hrs) Test 08/23/17 04:33 Anion Gap 6.0 mmol/L BUN/Creatinine Ratio 25.9 Blood Urea Nitrogen 58 mg/dl Creatinine 2.23 mg/dl Hemoglobin A1c 5.7 % Potassium Level 4.8 mmol/L Sodium Level 135 mmol/L White Blood Count 7.74 K/uL HbA1c Test 08/23/17 04:33 Hemoglobin A1c 5.7 % (4.5-5.6) H Recent Pertinent Medications Outpatient Anti-diabetic Regimen: * Lantus 8 units SQ HS Risk Factors for Insulin Resistance: * IVF: heparin infusion @ 27 ml/hr * Diet: T2DM Assessment & Plan ASSESSMENT: * 86 yr old T2DM male admitted with worsening CP/SOB. * Fasting BSG of 145 mg/dL is near goal - no changes to basal insulin today * Post prandial BSGs are elevated; CF/CR was tightened to 40/19 this am, however lunch BSG remained elevated. Will further tighten. * Will increase doses conservatively d/t excellent outpatient glycemic control on low dose basal insulin only and in the setting of acute on chronic kidney impairment (Scr 2.23, baseline 1.5) PLAN FOR INPATIENT GLYCEMIC CONTROL: * Basal insulin * Continue Lantus 8 units SQ HS * Bolus Insulin - tighten * NOVOLOG per scale ACHS or Q6hrs while NPO * Goal Range: Low 110 mg/dL - High 140 mg/dL * Correction Factor: 30 mg/dL/unit * Nutritional / Prandial insulin per carb ratio of 1 unit per 10 grams CHO consumed * Please note that the plan above was derived based on current level of insulin resistance and hospital stress. These recommendations are appropriate for inpatient admission only. Plan of care upon discharge will need to be reassessed to avoid potential outpatient hypo/hyperglycemia. Thank you.
--- NOTE | 2017-08-23 18:54 | Progress Note ---
Medicine Progress Note Date & Time of Visit: Aug 23, 2017 at 18:25 . Subjective CC: Follow-up visit for multiple problems. HPI: Admitted yesterday with CHF. Feels better with diuresis. Dyspnea improved. Nonproductive cough improved. No chest pain. Constipated. No nausea or vomiting. No fever or chills. ROS: as noted above in HPI . Objective Last 8 Hrs Date Time Temp Pulse Resp B/P (MAP) Pulse Ox O2 Delivery O2 Flow Rate FiO2 08/23/17 16:18 36.6 90 20 98/63 (75) 97 Room Air 08/23/17 16:00 Room Air 08/23/17 12:00 36.7 91 16 88/61 (70) 96 08/23/17 12:00 Room Air Physical Exam: General- lying in bed; no distress Lungs- bibasilar rales; no significant wheezing; no respiratory distress Cardiovascular- RRR; I/ systolic murmur at base; no gallop appreciated; slight JVD; no pretibial edema Abdomen- + bowel sounds, soft, nontender Extremities- no cyanosis; no calf tenderness; transmetatarsal amputation left foot Neuro- alert, oriented Skin- warm & dry . Laboratory Results: Last 24 Hours Test 08/22/17 19:05 08/22/17 19:26 08/22/17 20:32 08/23/17 00:00 Influenza Type A (RT-PCR) Neg for Influ A Influenza Type B (RT-PCR) Neg for Influ B Activated Partial Thromboplast Time 55.6 SECONDS Partial Thromboplastin Ratio 2.1 Troponin I 5.280 ng/ml Bedside Glucose 177 mg/dl Urine Color YELLOW Urine Appearance CLEAR Urine pH 5.0 Urine Specific [place] 1.019 Urine Protein NEG Urine Glucose (UA) NEG Urine Ketones NEG Urine Occult Blood NEG Urine Nitrite NEG Urine Bilirubin NEG Urine Urobilinogen NEG Urine Leukocyte Esterase TRACE Urine WBC (Auto) 1-5 /hpf Urine RBC (Auto) 0-4 /hpf Urine Hyaline Casts (Auto) 1-5 /lpf Urine Epithelial Cells (Auto) 5-10 /lpf Urine Bacteria (Auto) NEG Urine Random Creatinine 140.0 mg/dl Urine Random Total Protein 17.7 mg/dl Urine Protein/Creatinine Ratio 0.1 Test 08/23/17 01:46 08/23/17 04:33 08/23/17 06:19 08/23/17 11:05 Troponin I 5.440 ng/ml White Blood Count 7.74 K/uL Red Blood Count 3.52 M/uL Hemoglobin 10.8 g/dL Hematocrit 31.9 % Mean Corpuscular Volume 90.6 fL Mean Corpuscular Hemoglobin 30.7 pg Mean Corpuscular Hemoglobin Concent 33.9 g/dl RDW Standard Deviation 50.8 fL RDW Coefficient of Variation 15.4 % Platelet Count 233 K/uL Mean Platelet Volume 9.3 fL Activated Partial Thromboplast Time 60.2 SECONDS Partial Thromboplastin Ratio 2.3 Sodium Level 135 mmol/L Potassium Level 4.8 mmol/L Chloride Level 106 mmol/L Carbon Dioxide Level 23 mmol/L Anion Gap 6.0 mmol/L Blood Urea Nitrogen 58 mg/dl Creatinine 2.23 mg/dl Est Creatinine Clear Calc Drug Dose 23.6 ml/min Estimated GFR () 29.4 Estimated GFR (Non- 25.4 BUN/Creatinine Ratio 25.9 Random Glucose 150 mg/dl Estimated Average Glucose 117 mg/dl Hemoglobin A1c 5.7 % Calcium Level 8.0 mg/dl Bedside Glucose 145 mg/dl 224 mg/dl Test 08/23/17 16:15 Bedside Glucose 148 mg/dl Assessment & Plan CHF Exam, chest x-ray, elevated BNP consistent with CHF. Acute on chronic left ventricular systolic heart failure with underlying severe aortic stenosis. Echo showed LVEF < 25%. Improved with diuresis. No ELLEN or ARB due to renal disease. Receiving metoprolol succinate. Further management per Cardiology. ELEVATED CARDIAC MARKERS Probable non-STEMI. Continue aspirin, IV heparin, metoprolol, Check lipids. Further management per Cardiology. AORTIC STENOSIS Severe aortic stenosis per echo. Further management per Cardiology. COUGH Afebrile. [employer] swab for influenza negative. Cough probably due to CHF. Improved. CHRONIC KIDNEY DISEASE III / ACUTE KIDNEY INJURY CKD III with baseline creatinine around 1.5. Creatinine at time of admission 2.14. Nephrology consulted. Creatinine today = 2.23. Avoid potential nephrotoxins when able. Follow. DM TYPE 2 Well-controlled at home. Hgb A1C = 5.7. Pharmacy consulted for glycemic management. VTE PROPHYLAXIS Currently receiving IV heparin. DISPOSITION To be determined. Internal Medicine follow-up with Dr. Juarez. Cardiology follow-up with Drs. Peyton. . Current Inpatient Medications: Current Inpatient Medications Medications (Trade) Dose Ordered Sig/Isaiah Route Start Time Stop Time Status Last Admin Dose Admin Acetaminophen (Tylenol Tab) 650 mg Q4H PRN PO 08/22/17 13:45 09/21/17 13:44 Heparin Sodium/ Dextrose 500 ml @ 27 mls/hr [id number] PRN IV 08/22/17 16:15 09/21/17 16:14 08/23/17 09:22 27 MLS/HR Insulin Glargine (Lantus Solostar Pen) 8 units HS SC 08/22/17 21:00 09/21/17 20:59 08/22/17 21:44 8 UNITS Insulin Aspart (novoLOG ASPART) SLIDING SCALE ACHS SC 08/22/17 21:00 09/21/17 20:59 08/23/17 12:38 5 UNITS Glucose (Glucose 40% Gel) 15-30 GRAMS 15 GRAMS... UD PRN PO 08/22/17 19:45 09/21/17 19:44 Glucose (Glucose Chew Tab) 4-8 Tablets 4 Tabl... UD PRN PO 08/22/17 19:45 09/21/17 19:44 Dextrose (Dextrose 50% 50ML Syringe) 25-50ML OF 50% DW IV FOR... UD PRN IV 08/22/17 19:45 09/21/17 19:44 Glucagon (Glucagon Inj) 1 mg UD PRN SQ 08/22/17 19:45 09/21/17 19:44 Miscellaneous Information (Consult Glycemic Management Pharmacy) 1 ea UD PRN N/A 08/22/17 19:58 09/21/17 19:57 Morphine Sulfate (MoRPHine SULFATE INJ) 2 mg Q4H PRN IV 08/22/17 19:45 09/05/17 19:44 Al Hydroxide/Mg Hydroxide/ Lidocaine HCl/ Barcode Q8H PRN PO 08/22/17 20:15 09/21/17 20:14 Aspirin (Ecotrin Tab) 81 mg DAILY PO 08/23/17 09:00 09/22/17 08:59 08/23/17 08:07 81 MG Metoprolol Succinate (Toprol Xl Tab) 12.5 mg QAM PO 08/24/17 09:00 09/23/17 08:59
[2017-08-23] MEDS ORDERED: MAGNESIUM HYDROXIDE SUSP 30 ML UDC PO ONE (20:00)
[2017-08-23] MEDS: INSULIN GLARGINE SOLOSTAR 100 UNITS/ML 3 ML PEN SC SCH (20:56)
[2017-08-24] MEDS: HEPARIN 25,000 UNIT/500ML D5W 500 ML IV PRN (02:23)
[2017-08-24 03:57] VITALS: BP 88/51; PULSE 84; TEMP 36.7; O2SAT 93
[2017-08-24] MEDS ORDERED: COUGH DROP (SUGAR FREE) LOZ 24 LOZ/1 BOX LOZ ONE (04:00)
[2017-08-24 06:53] LABS: PTT PATIENT 63.7 SECONDS (21.0-31.0)
[2017-08-24 07:06] LABS: CALCIUM 7.9 mg/dl (8.5-10.1); CREATININE 2.47 mg/dl (0.60-1.40)
[2017-08-24 08:21] VITALS: BP 100/64; PULSE 74; O2SAT 96
--- NOTE | 2017-08-24 08:21 | DIAGNOSTIC IMAGING REPORT ---
EXAMINATION: RENAL ULTRASOUND CLINICAL HISTORY: Acute renal insufficiency COMPARISON STUDY: CT scan dated to 9:15 FINDINGS: The right kidney measures 10.1 cm. The left kidney measures 9.2 cm. There is no evidence of hydronephrosis. No solid renal masses are visualized. The left kidney has a lobulated contour. There is trace left-sided perinephric fluid. The prostate is enlarged. The bladder is trabeculated with a 34 mm left lateral bladder diverticulum.. IMPRESSION : 1. Prostamegaly 2. Trabeculated bladder. 34 mm left lateral bladder diverticulum 3. No evidence of hydronephrosis 4. Trace left perinephric fluid Electronically signed by: Ronnie Schmitt M.D. 08/24/2017 8:19 AM Dictated Date/Time: 08/24/2017 8:17 AM
[2017-08-24] MEDS: ASPIRIN 81 MG ECTAB PO SCH (09:00)
[2017-08-24] MEDS ORDERED: INSULIN GLARGINE SOLOSTAR 100 UNITS/ML 3 ML PEN SC SCH (09:00)
[2017-08-24] MEDS: METOPROLOL SUCC 25MG EXT REL TAB PO SCH (09:05)
[2017-08-24] MEDS: INSULIN ASPART 100 UNITS/ML 3 ML PEN SC SCH ×4 (09:11→21:07)
--- NOTE | 2017-08-24 09:22 | Medical Consult ---
Consultation Note Date of Service Aug 24, 2017. Consultation Note Consult Dictated #[id number]
--- NOTE | 2017-08-24 09:43 | CONSULTATION REPORT ---
DATE OF CONSULTATION: 08/24/2017 REASON FOR CONSULTATION: Left pleural effusion. HISTORY OF PRESENT ILLNESS: This is an 86-year-old male with multiple medical comorbidities that will be delineated below. We are asked to see the patient for a left pleural effusion. The patient does have a history of severe aortic stenosis, chronic kidney disease as well as combined systolic and diastolic congestive heart failure. The patient says that he was leading a fairly active lifestyle, which include activities such as chopping wood, however, approximately 1 week ago, the patient began experiencing worsening shortness of breath that he said got to the point that required hospitalization. Since hospitalization, the patient has had 2 chest x-ray which showed concern for a left pleural effusion. The patient did have an echocardiogram performed by Dr. Xiong and he notes that he could visualize left pleural effusion on this study. Therefore, he asked us to see the patient. I did visit with the patient at bedside and at this time he is resting comfortably in bed without specific complaints. He states he has not had any recent falls, head injuries or visual changes. He denies any tinnitus, vertigo, epistaxis or sore throat. He denies any chest pain. He says he does note dyspnea on exertion. He specifically denies any orthopnea or paroxysmal nocturnal dyspnea. He denies any fevers, shakes or chills or close contact with sick individuals. He denies any nausea, vomiting, diarrhea, abdominal pain or myalgias. He denies any dysuria. He denies any history of DVT or PE. He denies anxiety or depression. The patient's imaging was reviewed as noted above. The patient has also undergone laboratories where a CBC revealed platelet count was 233,000, hemoglobin and hematocrit 10.8 and 31.9 and white blood cell count was within the normal range. His coagulation studies revealed an INR of 1.0. Chemistry profile showed sodium was 133, potassium was within the normal range. BUN and creatinine were 70 and 2.4. The patient has had serology for influenza A and B which were both noted to be negative. PAST MEDICAL HISTORY: Includes the followin. Stage III chronic kidney disease. 2. Combined systolic and diastolic CHF. 3. History of complete heart block. 4. Coronary artery disease. 5. Diabetes. 6. Hypertension. 7. Peripheral neuropathy. 8. Peripheral vascular disease. 9. History of severe aortic stenosis. PAST SURGICAL HISTORY: 1. Includes transmetatarsal amputation of the left foot. 2. Exploratory laparotomy due to intra-abdominal abscess. 3. Permanent pacemaker. 4. Cholecystectomy. FAMILY HISTORY: He does not know if premature coronary artery disease runs in his family. SOCIAL HISTORY: He is a lifetime nonsmoker. ALLERGIES: None. CURRENT MEDICATIONS: Include: 1. Toprol 12.5 mg daily. 2. Lantus 6 units in the morning and 8 units in the evening. 3. Aspirin 81 mg daily. 4. Sliding scale NovoLog insulin. 5. P.r.n. Tylenol. 6. P.r.n. morphine. 7. Heparin drip. REVIEW OF SYSTEMS: As noted above. PHYSICAL EXAMINATION: VITAL SIGNS: The patient is afebrile with a temperature of 36.7, pulse 74 and regular, respirations are 18 and unlabored, blood pressure 164, pulse ox 96% on room air. SKIN: Warm with good turgor. GENERAL: He is alert and he is oriented x3. He is no distress. HEENT: Head is atraumatic, normocephalic. EYES: Pupils equal, round and reactive to light and accommodation. His extraocular motions are intact. EARS: Auditory acuity is grossly intact. NOSE: Nasal patency was intact. Sinuses are nontender. Mouth is moist without exudates. NECK: Supple. There is no JVD. CARDIOVASCULAR: Regular rate and rhythm. LUNGS: Revealed decreased breath sounds at bases with the left being worse than the right. He was not using accessory muscles to aid in respiration. ABDOMEN: Soft, nontender. EXTREMITIES: Revealed no cyanosis, clubbing. He did have a transmetatarsal amputation noted of the left foot. Peripheral pulses were not palpable. NEUROLOGIC: Revealed cranial nerves II through XII are grossly intact. He could move all 4 extremities without noted focal deficits. DIAGNOSTIC DATA: As noted above. IMPRESSION: An 86-year-old male with a left pleural effusion. PLAN: I suspect that his pleural effusion is likely due to a combination of factors including his chronic kidney disease as well as his cardiac issues including his history of CHF as well as aortic stenosis. I discussed with Dr. Xiong and we have elected at this time to discontinue his heparin drip. I verified with the nurse, this was turned off at approximately 9:00 a.m. Later this afternoon at least 4 hours from the time heparin was stopped, we will perform a bedside ultrasound and perform a left thoracentesis ultrasound reveals an adequate fluid pocket available for this procedure. I did discuss the risks and benefits with the patient with the risks including but not limited to bleeding, infection, pneumothorax and reexpansion pulmonary edema. I did discuss the benefits with the patient outlining that we could analyze the fluid for possible causes such as infection. We also noted that performing this procedure will likely make his breathing feel better and he does wish to proceed. Dr. Trujillo will go over the procedure with the patient again prior to performing it and we will obtain informed consent.
--- NOTE | 2017-08-24 09:50 | Cardiology Follow-Up ---
Subjective General Date of Service: Aug 24, 2017. Chief Complaint: follow up shortness of breath Pt evaluation today including: conversation w/ patient, physical exam History of Present Illness The patient is a 86 year old male seen in follow up. Feeling better than when he went to the ED, however still short of breath with minimal activity. Urine output from yesterday recorded on 08/23 was 300 ml but I am not certain this is accurate. 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 Physical Exam Vital Signs Last Vital Signs Documentation Date Time Temp Pulse Resp B/P (MAP) Pulse Ox O2 Delivery O2 Flow Rate FiO2 08/24/17 08:21 74 18 100/64 (76) 96 Room Air 08/24/17 03:57 36.7 Physical Exam Constitutional: Level of Distress: acutely ill Head: normocephalic Neck: supple Lungs: Auscultation: pertinent finding (decreased BS at the bases, left worse than right ) Cardiovascular: Heart Auscultation: RRR, pertinent finding (barely audible systolic murmur) Extremities: no edema Neurologic: Gait & Station: pertinent finding (mental status appropriate, he follows commands ) Assessment and Plan Assessment and Plan Impression: 78-year-old male 1. Acute decompensation, newly diagnosed systolic heart failure, with new severe left ventricular systolic dysfunction, left ventricular ejection fraction less than 25% 2. Underlying history of critical severe aortic valve stenosis 3. Acute kidney injury, on chronic kidney disease, creatinine continues to trend up , 2.47 mg/dl up from 1.7 mg/dl in 05/2017. 4. History of intermittent high-grade AV block, status post dual-chamber pacemaker May, Discussion/recommendations: Continue low-dose metoprolol succinate 12.5 mg daily starting with caution. Use of beta roby is limited due to his relative low blood pressure. He is not a candidate for ELLEN / ARB, Aldactone , digoxin, or Entresto given his renal insufficiency. Given increasing creatinine , and relative low BP, this limits ability to administer diuretic therapy, especially given the risks of dropping his BP to much in the setting of low LVEF and severe . I have therefore asked thoracic surgery to assess him to see if the left pleural effusion is large enough to allow for thoracentesis. Holding heparin pending thoracic surgery evaluation. The patient had previously planned a second opinion at [facility] regarding transcatheter aortic valve replacement. Is my opinion however that in between April and now, he has had interval decline in his ejection fraction , and I feel that his aortic valve disease is likely inoperable at present from both a surgical AVR in transcatheter aortic valve replacement standpoint. Laboratory Results Last 24 Hours Test 08/23/17 11:05 08/23/17 16:15 08/23/17 20:27 08/24/17 06:10 Bedside Glucose 224 mg/dl 148 mg/dl 173 mg/dl Activated Partial Thromboplast Time 63.7 SECONDS Partial Thromboplastin Ratio 2.5 Sodium Level 133 mmol/L Potassium Level 5.0 mmol/L Chloride Level 102 mmol/L Carbon Dioxide Level 22 mmol/L Anion Gap 9.0 mmol/L Blood Urea Nitrogen 70 mg/dl Creatinine 2.47 mg/dl Est Creatinine Clear Calc Drug Dose 21.3 ml/min Estimated GFR () 26.0 Estimated GFR (Non- 22.4 BUN/Creatinine Ratio 28.3 Random Glucose 151 mg/dl Calcium Level 7.9 mg/dl Magnesium Level 2.9 mg/dl Triglycerides Level 95 mg/dl Cholesterol Level 79 mg/dl HDL Cholesterol 31 mg/dl LDL Cholesterol, Calculated 29 mg/dl VLDL Cholesterol, Calculated 19 mg/dl Cholesterol/HDL Ratio 2.5 25-Hydroxy Vitamin D Total 25.7 ng/ml Parathyroid Hormone (Intact) 293.5 pg/mL Test 08/24/17 06:22 Bedside Glucose 163 mg/dl
--- NOTE | 2017-08-24 10:50 | Clinical Documentation Query ---
CLINICAL DOCUMENTATION QUERY 86-y/o male with acute onset of newly diagnoses systolic CHF confirmed by echo and cardiology. In your clinical opinion is this patient being managed for: ( ) Type II NM in setting of acute systolic CHF evidenced by diffuse LV hypokinesis and apical akinesis with EF of <25% ( ) NSTEMI causing new systolic dysfunction, wall motion abnormalities by echo and acute systolic CHF. ( ) Not Agree ( x ) Other explanation of clinical findings (Please Explain) SUSPECTED NONSTEMI UNCERTAIN CONNECTION WITH REDUCED LVEF ( ) Unable to determine (Please Define) ( ) Need to Discuss The medical record reflects the following clinical findings, treatment, and risk factors. Clinical Indicators: Sharp left sided chest pain, +Troponins (5.360, 5.280, 5.440), Echo with EF <25%, hypokinesis of LV and akinesis of apical segments, and severe aortic stenosis. Treatment: ASA, Heparin gtt, IV Lasix, Lopressor, Cardiology consult, Echo, ECG's, serial cardiac markers. Risk Factors: Age, CKD, PVD, Please clarify and document your clinical opinion in the progress notes and discharge summary. Terms such as "probable", "suspected", "likely", "questionable", "possible", or "still to be ruled out" are acceptable. IF IN AGREEMENT, YOU MUST DOCUMENT ABOVE DIAGNOSTIC STATEMENT IN DAILY PROGRESS NOTES AND DISCHARGE SUMMARY. This document is not part of the patient's record. Thank You, Deangelo Nair, JORDANA [phone]
--- NOTE | 2017-08-24 11:04 | DIAGNOSTIC IMAGING REPORT ---
CHEST ONE VIEW PORTABLE CLINICAL HISTORY: effusion ELEVATED TROPONIN COMPARISON STUDY: 08/23/2017 FINDINGS: The heart remains enlarged. There is a left subclavian dual-chamber central venous pacemaker present. There is persistent congestive failure with mild interstitial edema. This appears slightly improved. There is a decreasing left pleural effusion. There is no lobar consolidation.[ IMPRESSION: 1. Slight improvement in the congestive failure/pulmonary edema pattern. Decreasing small left pleural effusion. Electronically signed by: Ronnie Schmitt M.D. 08/24/2017 11:03 AM Dictated Date/Time: 08/24/2017 11:02 AM
--- NOTE | 2017-08-24 11:09 | SURGICAL CONSULTATION ---
DATE OF CONSULTATION: 08/24/2017 Dr. Xiong asked us to evaluate this 86-year-old male. He was found to have a left pleural effusion, he has been complaining of shortness of breath. He also has renal insufficiency which complicates this process. We were asked to see him for this pleural effusion. His x-ray shows some fluid; however, on the bedside ultrasound, he had a great deal. He is an extremely nice man who is independent in his activities of daily living. We are going to perform a left thoracentesis today. For specifics of this consultation, please see Mr. Moshe Clark's full consultation.
[2017-08-24 11:10] VITALS: BP 92/60; PULSE 87; TEMP 36.7; O2SAT 96
--- NOTE | 2017-08-24 11:15 | OPERATIVE REPORT ---
DATE OF OPERATION: 08/24/2017 PREOPERATIVE DIAGNOSIS: Left pleural effusion. POSTOPERATIVE DIAGNOSIS: Same. PROCEDURE PERFORMED: Bedside ultrasound guided thoracentesis. SURGEON: Dr. Trujillo. STORE SHOPPER: GEORGETTE Grimes. ANESTHESIA: Local. SPECIFICS OF PROCEDURE: The patient in upright position, ultrasound was used to perform a bedside ultrasound, he had a significant amount of fluid. I marked this with an indelible ink and then we prepped and draped in usual sterile fashion. After appropriate timeout had been called, 0.5% Xylocaine without epinephrine was used to anesthetize the skin and subcutaneous tissues. Free flowing fluid was obtained when we got down to the pleura. A guidewire was inserted through the needle and needle removed. Introducer sheath was slid over the guidewire to enlarge the insertion track slightly. Triple lumen catheter was then slid over the guidewire and the guidewire removed. 1050 mL of yellow serous fluid was drained. He tolerated it quite well with minimal amount of coughing. We removed the catheter. He had no bleeding. He tolerated it well. I attest to the content of the Intraoperative Record and any orders documented therein. Any exception s are noted below.
[2017-08-24 11:43] LABS: PLEURAL FLUID TOTAL PROTEIN 1.2 g/dl
--- NOTE | 2017-08-24 12:18 | Pharmacy Progress Note ---
Glycemic Control Progress Note Date of Service Aug 24, 2017. Scope Glycemic Pharmacist consulted for glycemic control to write orders per [facility] inpatient glycemic control protocol. Objective Accuchecks BSG (last 24hrs): Test 08/23/17 16:15 08/23/17 20:27 08/24/17 06:10 08/24/17 06:22 Bedside Glucose 148 mg/dl (70-99) 173 mg/dl (70-99) 163 mg/dl (70-99) Random Glucose 151 mg/dl (70-99) Test 08/24/17 11:14 Bedside Glucose 155 mg/dl (70-99) HbA1c: Test 08/23/17 04:33 Hemoglobin A1c 5.7 % (4.5-5.6) H Recent Pertinent Medications Risk Factors for Insulin Resistance: * IVF: heparin infusion @ 27 ml/hr * Diet: T2DM Outpatient Anti-Diabetic Meds Lantus 8 units SQ HS Assessment & Plan ASSESSMENT: * See note from 08/22 for background info, in short: * 86 yr old T2DM male admitted with worsening CP/SOB. * Fasting BSG of 163 mg/dL is above goal, therefore will increase Lantus. * Post prandial BSGs are improving following tightening of CF/CR yesterday. No changes will be made today. PLAN FOR INPATIENT GLYCEMIC CONTROL: * Basal insulin * Additional dose of Lantus 6 units SQ this AM * Continue Lantus 8 units SQ HS tonight, then * Increase to 14 units SQ qPM starting on 08/25 * Bolus Insulin * NOVOLOG per scale ACHS or Q6hrs while NPO * Goal Range: Low 110 mg/dL - High 140 mg/dL * Correction Factor: 30 mg/dL/unit * Nutritional / Prandial insulin per carb ratio of 1 unit per 10 grams CHO consumed * Please note that the plan above was derived based on current level of insulin resistance and hospital stress. These recommendations are appropriate for inpatient admission only. Plan of care upon discharge will need to be reassessed to avoid potential outpatient hypo/hyperglycemia. Thank you.
--- NOTE | 2017-08-24 12:28 | Cardiology Progress Note ---
Cardiology Progress Note Date of Service Aug 24, 2017. Cardiology Progress Note Followed up with pt , s/p thoracentesis. Feeling better. Both daughters and son in law in room. Updated them and patient on findings and my opinion that given his decline in LVEF, and renal insufficiency, TAVR likely prohibitively risky. I offered referral for consultation with Structural heart disease / valve clinic with [facility] for TAVR consult or referral to [facility] if he would like. Given [employer] coverage he likely needs to stay within [email or web address] system for cost reasons.
--- NOTE | 2017-08-24 16:01 | Nephrology Progress Note ---
Nephrology Progress Note Date of Service: Aug 24, 2017. Subjective 86 yo male with jimmy on ckd who underwent renal us with right kidney of 10.1cm and left kidney of 9.2cm. pt continues with malaise and continues to have cough. denies lightheadedness. denies any issues with urination although previous hospitilizations, noted to have incontinence issues and frequent urination. pt underwent thoracentesis. Objective Date Time Temp Pulse Resp B/P (MAP) Pulse Ox O2 Delivery O2 Flow Rate FiO2 08/24/17 12:00 Room Air 08/24/17 11:10 36.7 87 22 92/60 (71) 96 Room Air 08/24/17 08:21 74 18 100/64 (76) 96 Room Air 08/24/17 08:15 Room Air 08/24/17 04:00 Room Air 08/24/17 03:57 36.7 84 18 88/51 (63) 93 Room Air 08/23/17 23:59 Room Air 08/23/17 23:51 36.7 87 22 85/59 (68) 93 Room Air 08/23/17 20:00 Room Air 08/23/17 19:21 36.8 94 20 91/58 (69) 95 Room Air 08/23/17 16:18 36.6 90 20 98/63 (75) 97 Room Air 08/23/17 16:00 Room Air Physical Exam: General-aaox3 Eyes-no scleral icterus ENT-mmm Neck-supple Lungs-decreased at bases Heart-regular Abdomen-bs+ s/nt/nd Extremities-+1 edema with tma Neuro-nonfocal Current Inpatient Medications Medications (Trade) Dose Ordered Sig/Isaiah Route Start Time Stop Time Status Last Admin Dose Admin Acetaminophen (Tylenol Tab) 650 mg Q4H PRN PO 08/22/17 13:45 09/21/17 13:44 Insulin Glargine (Lantus Solostar Pen) 8 units HS SC 08/22/17 21:00 08/24/17 23:00 08/23/17 20:56 8 UNITS Insulin Aspart (novoLOG ASPART) SLIDING SCALE ACHS SC 08/22/17 21:00 09/21/17 20:59 08/24/17 09:11 4 UNITS Glucose (Glucose 40% Gel) 15-30 GRAMS 15 GRAMS... UD PRN PO 08/22/17 19:45 09/21/17 19:44 Glucose (Glucose Chew Tab) 4-8 Tablets 4 Tabl... UD PRN PO 08/22/17 19:45 09/21/17 19:44 Dextrose (Dextrose 50% 50ML Syringe) 25-50ML OF 50% DW IV FOR... UD PRN IV 08/22/17 19:45 09/21/17 19:44 Glucagon (Glucagon Inj) 1 mg UD PRN SQ 08/22/17 19:45 09/21/17 19:44 Miscellaneous Information (Consult Glycemic Management Pharmacy) 1 ea UD PRN N/A 08/22/17 19:58 09/21/17 19:57 Morphine Sulfate (MoRPHine SULFATE INJ) 2 mg Q4H PRN IV 08/22/17 19:45 09/05/17 19:44 Al Hydroxide/Mg Hydroxide/ Lidocaine HCl/ Barcode Q8H PRN PO 08/22/17 20:15 09/21/17 20:14 Aspirin (Ecotrin Tab) 81 mg DAILY PO 08/23/17 09:00 09/22/17 08:59 08/23/17 08:07 81 MG Metoprolol Succinate (Toprol Xl Tab) 12.5 mg QAM PO 08/24/17 09:00 09/23/17 08:59 08/24/17 09:05 12.5 MG Insulin Glargine (Lantus Solostar Pen) 14 units HS SC 08/25/17 17:00 09/24/17 16:59 Heparin Sodium (Porcine) (Heparin Sq 5000 Unit/0.5ml) 5,000 unit Q12 SQ 08/24/17 21:00 09/23/17 20:59 Last 24 Hours Test 08/23/17 16:15 08/23/17 20:27 08/24/17 00:00 08/24/17 06:10 Bedside Glucose 148 mg/dl 173 mg/dl Pleural Fluid pH 7.39 Activated Partial Thromboplast Time 63.7 SECONDS Partial Thromboplastin Ratio 2.5 Sodium Level 133 mmol/L Potassium Level 5.0 mmol/L Chloride Level 102 mmol/L Carbon Dioxide Level 22 mmol/L Anion Gap 9.0 mmol/L Blood Urea Nitrogen 70 mg/dl Creatinine 2.47 mg/dl Est Creatinine Clear Calc Drug Dose 21.3 ml/min Estimated GFR () 26.0 Estimated GFR (Non- 22.4 BUN/Creatinine Ratio 28.3 Random Glucose 151 mg/dl Calcium Level 7.9 mg/dl Magnesium Level 2.9 mg/dl Triglycerides Level 95 mg/dl Cholesterol Level 79 mg/dl HDL Cholesterol 31 mg/dl LDL Cholesterol, Calculated 29 mg/dl VLDL Cholesterol, Calculated 19 mg/dl Cholesterol/HDL Ratio 2.5 25-Hydroxy Vitamin D Total 25.7 ng/ml Parathyroid Hormone (Intact) 293.5 pg/mL Test 08/24/17 06:22 08/24/17 10:45 08/24/17 11:14 Bedside Glucose 163 mg/dl 155 mg/dl Pleural Fluid Source LEFT LUNG Pleural Fluid Color STRAW Pleural Fluid Appearance HAZY Pleural Fluid WBC 118 /uL Pleural Fluid RBC 6000 /uL Pleural Fluid Polynuclear WBCs % 41.7 % Pleural Fluid Mononuclear WBCs % 58.3 % Pleural Fluid Total Protein 1.2 g/dl Pleural Fluid LDH 66 IU Pleural Fluid Glucose 166 mg/dl Pleural Fluid Amylase 9 U/L Date/Time Source Procedure Growth Status 08/24/17 10:45 Pleural Fluid (Thoracentesis) Left Fungal Smear Pending Received 08/24/17 10:45 Pleural Fluid (Thoracentesis) Left Fungal Culture Pending Received 08/24/17 10:45 Pleural Fluid (Thoracentesis) Left Acid Fast Stain Pending Received 08/24/17 10:45 Pleural Fluid (Thoracentesis) Left Mycobacterial Culture Pending Received 08/24/17 10:45 Pleural Fluid (Thoracentesis) Left Gram Stain - Final Resulted 08/24/17 10:45 Pleural Fluid (Thoracentesis) Left Bacterial Culture Pending Resulted Assessment & Plan jimmy on ckd stage 3 with creatinine that is slowly worsening in setting of low blood pressures and lasix 40 iv on the 6th and 20 iv on the 7th. no role for dialysis at this time. renal us shows two normal sized kidneys. findings of enlarged prostate and bladder diverticulum and may benefit from seeing urology. pt though may not be excited about seeing an outpt urologist. volume status improved with the thoracentesis. spep is pending. RONN-vitamin d is low and pth is elevated and would start vitamin d and calcitriol while monitoring calcium levels.
[2017-08-24 16:10] VITALS: BP 98/61; PULSE 87; TEMP 36.3; O2SAT 98
[2017-08-24] MEDS: CALCITRIOL 0.25 MCG CAP PO SCH (17:17)
[2017-08-24] MEDS: CHOLECALCIFEROL 1000 INTER.UNIT TAB PO SCH (17:51)
--- NOTE | 2017-08-24 19:46 | Progress Note ---
Medicine Progress Note Date & Time of Visit: Aug 24, 2017 at 16:10 . Subjective CC: Follow-up visit for multiple problems. HPI: Dyspnea improved. Nonproductive cough improved. No chest pain. Thoracentesis performed by Thoracic Surgery. No nausea or vomiting. No diarrhea. No fever or chills. ROS: as noted above in HPI . Objective Last 8 Hrs Date Time Temp Pulse Resp B/P (MAP) Pulse Ox O2 Delivery O2 Flow Rate FiO2 08/24/17 16:10 36.3 87 20 98/61 (73) 98 Room Air 08/24/17 16:00 Room Air 08/24/17 12:00 Room Air Physical Exam: General- lying in bed; no distress Lungs- bibasilar rales; no significant wheezing; no respiratory distress Cardiovascular- RRR; I/ systolic murmur at base; no gallop appreciated; + JVD ; no pretibial edema Abdomen- + bowel sounds, soft, nontender Extremities- no cyanosis; no calf tenderness; transmetatarsal amputation left foot Neuro- alert, oriented Skin- warm & dry . Laboratory Results: Last 24 Hours Test 08/23/17 20:27 08/24/17 00:00 08/24/17 06:10 08/24/17 06:22 Bedside Glucose 173 mg/dl 163 mg/dl Pleural Fluid pH 7.39 Activated Partial Thromboplast Time 63.7 SECONDS Partial Thromboplastin Ratio 2.5 Sodium Level 133 mmol/L Potassium Level 5.0 mmol/L Chloride Level 102 mmol/L Carbon Dioxide Level 22 mmol/L Anion Gap 9.0 mmol/L Blood Urea Nitrogen 70 mg/dl Creatinine 2.47 mg/dl Est Creatinine Clear Calc Drug Dose 21.3 ml/min Estimated GFR () 26.0 Estimated GFR (Non- 22.4 BUN/Creatinine Ratio 28.3 Random Glucose 151 mg/dl Calcium Level 7.9 mg/dl Magnesium Level 2.9 mg/dl Triglycerides Level 95 mg/dl Cholesterol Level 79 mg/dl HDL Cholesterol 31 mg/dl LDL Cholesterol, Calculated 29 mg/dl VLDL Cholesterol, Calculated 19 mg/dl Cholesterol/HDL Ratio 2.5 25-Hydroxy Vitamin D Total 25.7 ng/ml Parathyroid Hormone (Intact) 293.5 pg/mL Test 08/24/17 10:45 08/24/17 11:14 08/24/17 16:09 Pleural Fluid Source LEFT LUNG Pleural Fluid Color STRAW Pleural Fluid Appearance HAZY Pleural Fluid WBC 118 /uL Pleural Fluid RBC 6000 /uL Pleural Fluid Polynuclear WBCs % 41.7 % Pleural Fluid Mononuclear WBCs % 58.3 % Pleural Fluid Total Protein 1.2 g/dl Pleural Fluid LDH 66 IU Pleural Fluid Glucose 166 mg/dl Pleural Fluid Amylase 9 U/L Bedside Glucose 155 mg/dl 151 mg/dl Date/Time Source Procedure Growth Status 08/24/17 10:45 Pleural Fluid (Thoracentesis) Left Fungal Smear Pending Received 08/24/17 10:45 Pleural Fluid (Thoracentesis) Left Fungal Culture Pending Received 08/24/17 10:45 Pleural Fluid (Thoracentesis) Left Acid Fast Stain Pending Received 08/24/17 10:45 Pleural Fluid (Thoracentesis) Left Mycobacterial Culture Pending Received 08/24/17 10:45 Pleural Fluid (Thoracentesis) Left Gram Stain - Final Resulted 08/24/17 10:45 Pleural Fluid (Thoracentesis) Left Bacterial Culture Pending Resulted Assessment & Plan CHF Exam, chest x-ray, elevated BNP consistent with CHF. Acute on chronic left ventricular systolic heart failure with underlying severe aortic stenosis. Echo showed LVEF < 25%. Improved with diuresis. No ELLEN or ARB due to renal disease. Receiving metoprolol succinate. Further management per Cardiology. ELEVATED CARDIAC MARKERS Probable non-STEMI. Continue aspirin, IV heparin, metoprolol, Check lipids. Further management per Cardiology. AORTIC STENOSIS Severe aortic stenosis per echo. Further management per Cardiology. COUGH Afebrile. [employer] swab for influenza negative. Cough probably due to CHF. Improved. PLEURAL EFFUSION Thoracentesis performed by Thoracic Surgery. Results pending. CHRONIC KIDNEY DISEASE III / ACUTE KIDNEY INJURY CKD III with baseline creatinine around 1.5. Creatinine at time of admission 2.14. Nephrology consulted. Creatinine today = 2.47. Avoid potential nephrotoxins when able. Follow. DM TYPE 2 Well-controlled at home. Hgb A1C = 5.7. Pharmacy consulted for glycemic management. FBS today = 163. VTE PROPHYLAXIS Initially received IV heparin; transitioned to SQ heparin. DISPOSITION To be determined. Internal Medicine follow-up with Dr. Juarez. Cardiology follow-up with Drs. Reese and Inga. . Current Inpatient Medications: Current Inpatient Medications Medications (Trade) Dose Ordered Sig/Isaiah Route Start Time Stop Time Status Last Admin Dose Admin Acetaminophen (Tylenol Tab) 650 mg Q4H PRN PO 08/22/17 13:45 09/21/17 13:44 Insulin Glargine (Lantus Solostar Pen) 8 units HS SC 08/22/17 21:00 08/24/17 23:00 08/23/17 20:56 8 UNITS Insulin Aspart (novoLOG ASPART) SLIDING SCALE ACHS SC 08/22/17 21:00 09/21/17 20:59 08/24/17 09:11 4 UNITS Glucose (Glucose 40% Gel) 15-30 GRAMS 15 GRAMS... UD PRN PO 08/22/17 19:45 09/21/17 19:44 Glucose (Glucose Chew Tab) 4-8 Tablets 4 Tabl... UD PRN PO 08/22/17 19:45 09/21/17 19:44 Dextrose (Dextrose 50% 50ML Syringe) 25-50ML OF 50% DW IV FOR... UD PRN IV 08/22/17 19:45 09/21/17 19:44 Glucagon (Glucagon Inj) 1 mg UD PRN SQ 08/22/17 19:45 09/21/17 19:44 Miscellaneous Information (Consult Glycemic Management Pharmacy) 1 ea UD PRN N/A 08/22/17 19:58 09/21/17 19:57 Morphine Sulfate (MoRPHine SULFATE INJ) 2 mg Q4H PRN IV 08/22/17 19:45 09/05/17 19:44 Al Hydroxide/Mg Hydroxide/ Lidocaine HCl/ Barcode Q8H PRN PO 08/22/17 20:15 09/21/17 20:14 Aspirin (Ecotrin Tab) 81 mg DAILY PO 08/23/17 09:00 09/22/17 08:59 08/23/17 08:07 81 MG Metoprolol Succinate (Toprol Xl Tab) 12.5 mg QAM PO 08/24/17 09:00 09/23/17 08:59 08/24/17 09:05 12.5 MG Insulin Glargine (Lantus Solostar Pen) 14 units HS SC 08/25/17 17:00 09/24/17 16:59 Heparin Sodium (Porcine) (Heparin Sq 5000 Unit/0.5ml) 5,000 unit Q12 SQ 08/24/17 21:00 09/23/17 20:59 Cholecalciferol (Vitamin D Tab) 1,000 inter.unit QAM PO 08/24/17 16:30 09/23/17 16:29 08/24/17 17:51 1,000 INTER.UNIT Calcitriol (Rocaltrol Cap) 0.25 mcg DAILY PO 08/24/17 16:30 09/23/17 16:29 08/24/17 17:17 0.25 MCG
[2017-08-24 19:57] VITALS: BP 90/52; PULSE 83; TEMP 36.5; O2SAT 96
[2017-08-24] MEDS: INSULIN GLARGINE SOLOSTAR 100 UNITS/ML 3 ML PEN SC SCH (21:06)
[2017-08-24] MEDS: HEPARIN SOD 5000 UNIT/0.5 ML CARP SQ SCH (23:08)
[2017-08-24 23:48] VITALS: BP 94/60; PULSE 84; TEMP 36.6; O2SAT 98
[2017-08-25 03:48] VITALS: BP 92/59; PULSE 83; TEMP 36.7; O2SAT 98
[2017-08-25 06:44] LABS: HEMATOCRIT 31.4 % (42-52); HEMOGLOBIN 10.7 g/dL (14.0-18.0); MEAN CORPUSCULAR HEMOGLOBIN 30.3 pg (25-34); MEAN CORPUSCULAR HGB CONC 34.1 g/dl (32-36); MEAN PLATELET VOLUME 9.2 fL (7.4-10.4); PLATELET COUNT 230 K/uL (130-400); RED CELL DISTRIBUTION WIDTH CV 15.4 % (11.5-14.5); RED CELL DISTRIBUTION WIDTH SD 49.6 fL (36.4-46.3); WHITE BLOOD COUNT 7.75 K/uL (4.8-10.8)
[2017-08-25 07:11] LABS: CALCIUM 8.1 mg/dl (8.5-10.1); CREATININE 2.41 mg/dl (0.60-1.40)
--- NOTE | 2017-08-25 07:26 | DIAGNOSTIC IMAGING REPORT ---
CHEST ONE VIEW PORTABLE CLINICAL HISTORY: pleural effusion CONGESTIVE FAILURE COMPARISON STUDY: August 24, 2017 FINDINGS: The heart remains enlarged. There is a left subclavian dual-chamber central venous pacemaker present. There is radiographic evidence of interstitial pulmonary edema. There are small bilateral pleural effusions there is no lobar consolidation[ IMPRESSION: Persistent congestive failure/pulmonary edema pattern Electronically signed by: Ronnie Schmitt M.D. 08/25/2017 7:25 AM Dictated Date/Time: 08/25/2017 7:24 AM
[2017-08-25 07:54] VITALS: BP 99/64; PULSE 85; TEMP 36.6; O2SAT 97
[2017-08-25] MEDS: ASPIRIN 81 MG ECTAB PO SCH (08:45)
[2017-08-25] MEDS: METOPROLOL SUCC 25MG EXT REL TAB PO SCH (08:46)
[2017-08-25] MEDS: CALCITRIOL 0.25 MCG CAP PO SCH (08:46)
[2017-08-25] MEDS: CHOLECALCIFEROL 1000 INTER.UNIT TAB PO SCH (08:46)
[2017-08-25] MEDS: INSULIN ASPART 100 UNITS/ML 3 ML PEN SC SCH ×4 (08:49→21:00)
[2017-08-25] MEDS: HEPARIN SOD 5000 UNIT/0.5 ML CARP SQ SCH ×2 (08:52→21:00)
[2017-08-25 11:42] VITALS: BP 92/61; PULSE 86; TEMP 36.5; O2SAT 98
[2017-08-25] MEDS ORDERED: FUROSEMIDE INJ 40 MG in SYRINGE 0 ML IV ONE (12:45)
--- NOTE | 2017-08-25 15:28 | SURGERY PROGRESS NOTE ---
DATE: 08/25/2017 Mr. Segura was seen today. He is not much better. I drained him for a liter of fluid yesterday and his x-ray yesterday looked great. He states he really has not noticed much of a change. In addition, x-ray was done today and I really do not see much in the way of fluid accumulation. We will continue to watch him; however, I do not feel as strongly about draining as I did. I will be glad to see him back in the office if this were to recur, which it probably is. It is a transudate and probably related to his heart failure.
[2017-08-25 16:21] VITALS: BP 89/61; PULSE 95; TEMP 36.6; O2SAT 97
--- NOTE | 2017-08-25 17:05 | Cardiology Follow-Up ---
Subjective General Date of Service: Aug 25, 2017. Chief Complaint: follow up shortness of breath Pt evaluation today including: conversation w/ patient, physical exam History of Present Illness The patient is a 86 year old male seen in follow up. Patient feeling OK at rest. 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 Physical Exam Vital Signs Last Vital Signs Documentation Date Time Temp Pulse Resp B/P (MAP) Pulse Ox O2 Delivery O2 Flow Rate FiO2 08/25/17 16:21 36.6 95 20 89/61 (70) 97 Room Air Physical Exam Constitutional: Level of Distress: acutely ill Head: normocephalic Neck: supple Lungs: Auscultation: pertinent finding (decreased BS at the bases, left worse than right ) Cardiovascular: Heart Auscultation: RRR, pertinent finding (barely audible systolic murmur) Extremities: no edema Neurologic: Gait & Station: pertinent finding (mental status appropriate, he follows commands ) Assessment and Plan Assessment and Plan Impression: 78-year-old male 1. Acute decompensation, newly diagnosed systolic heart failure, with new severe left ventricular systolic dysfunction, left ventricular ejection fraction less than 25% -s/p successful left thoracentesis 2/8 of 1 L of pleural fluid with interval symptomatic improvement and improvement of CXR, however there is still residual CHF findings 2. Underlying history of critical severe aortic valve stenosis 3. Acute kidney injury, on chronic kidney disease, creatinine , 2.4 mg/dl compared to 1.7 mg/dl in 05/2017. 4. History of intermittent high-grade AV block, status post dual-chamber pacemaker May, Discussion/recommendations: Continue low-dose metoprolol succinate 12.5 mg daily starting with caution. Use of beta roby is limited due to his relative low blood pressure. He is not a candidate for ELLEN / ARB, Aldactone , digoxin, or Entresto given his renal insufficiency. The patient had previously planned a second opinion at [facility] regarding transcatheter aortic valve replacement. It is my opinion however that in between April and now, he has had interval decline in his ejection fraction, and I feel that his aortic valve disease is likely inoperable at present from both a surgical AVR and transcatheter aortic valve replacement standpoint. Patient and family are however interested in TAVR opinion, therefore I have requested [facility] valve clinic consultation post discharge. I have placed referral in his outpatient chart. Patient is due for outpatient pacer check, can consider checking [employer] device while in hospital vs as outpatient. Holding further diuretic dose for now , will repeat chem panel in am, 08/26. Laboratory Results Last 24 Hours Test 08/24/17 19:54 08/25/17 06:32 08/25/17 06:47 08/25/17 11:04 Bedside Glucose 152 mg/dl 152 mg/dl 153 mg/dl White Blood Count 7.75 K/uL Red Blood Count 3.53 M/uL Hemoglobin 10.7 g/dL Hematocrit 31.4 % Mean Corpuscular Volume 89.0 fL Mean Corpuscular Hemoglobin 30.3 pg Mean Corpuscular Hemoglobin Concent 34.1 g/dl RDW Standard Deviation 49.6 fL RDW Coefficient of Variation 15.4 % Platelet Count 230 K/uL Mean Platelet Volume 9.2 fL Sodium Level 132 mmol/L Potassium Level 5.0 mmol/L Chloride Level 104 mmol/L Carbon Dioxide Level 21 mmol/L Anion Gap 7.0 mmol/L Blood Urea Nitrogen 85 mg/dl Creatinine 2.41 mg/dl Est Creatinine Clear Calc Drug Dose 21.9 ml/min Estimated GFR () 26.8 Estimated GFR (Non- 23.1 BUN/Creatinine Ratio 35.1 Random Glucose 148 mg/dl Calcium Level 8.1 mg/dl Magnesium Level 3.2 mg/dl
--- NOTE | 2017-08-25 17:24 | SURGERY PROGRESS NOTE ---
DATE: 08/25/2017 Mr. Segura was seen this morning. This 86-year-old male had a thoracentesis for over a liter of fluid yesterday. This is a transudate, which would be more in line with an effusion secondary to congestive heart failure or renal insufficiency or both. Surprisingly, he did not have any clinical response to this. He states he felt no improvement with this. His x-ray today shows very little in the way of accumulation. I would be hesitant to re-tap him as we really did not help him much. We will continue to follow along though.
[2017-08-25] MEDS: INSULIN GLARGINE SOLOSTAR 100 UNITS/ML 3 ML PEN SC SCH (18:09)
--- NOTE | 2017-08-25 18:38 | Cardiology Progress Note ---
Cardiology Progress Note Date of Service Aug 25, 2017. Cardiology Progress Note Metrontic pacemaker function is normal. Sinus rhythm with underlying AV block noted.
--- NOTE | 2017-08-25 20:29 | Progress Note ---
Internal Med Progress Note Date of Service: Aug 25, 2017. Provider Documentation: SUBJECTIVE: resting in bed daughter in room says he has generalized malaise and weakness denies any sob or chest pain daughter says he is not able to do minimal activity because of generalized weakness did not sleep well last night request to change his mattress to more softer one wanted to go home today but agreed to stay until he is more stable eating ok no nausea OBJECTIVE: Vital Signs-as noted below Exam: General-alert and oriented. Not in distress ENT-Normal hearing Neck-no neck masses Lungs-cta b/l no wheezing mild bibasilar crackles present Heart-S 1 and S 2heard regular rate and rhythm ESM murmur present Abdomen-soft bowel sounds present non tender no distension Extremities-no edema no erythema Neuro-alert and awake moves extremities Lab data as noted below. ASSESSMENT & PLAN: CHF Acute systolic and diastolic chf Echo showed LVEF < 25%. Critical severe aortic stenosis Improved with diuresis. No ELLEN or ARB secondary to renal disease. Receiving low dose metoprolol succinate secondary to hypotension could not do aggressive diuresis secondary to ARF AND LOW bp received a dose of Lasix today as cxr shows congestion Further management per Cardiology. ELEVATED CARDIAC MARKERS Probable non-STEMI. on aspirin, IV heparin, metoprolol, Further management per Cardiology. AORTIC STENOSIS Severe aortic stenosis per echo. Further management per Cardiology. COUGH Afebrile. 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 Cough probably due to CHF. Improved. PLEURAL EFFUSION Thoracentesis performed by Thoracic Surgery. mostly form chf /ckd no plan for repeat thoracocentesis as it did not helped him much CHRONIC KIDNEY DISEASE III / ACUTE KIDNEY INJURY CKD III with baseline creatinine around 1.5. Presented with CR of 2.14. Nephrology consulted. Creatinine today = 2.47. will monitor. DM TYPE 2 Well-controlled at home. Hgb A1C = 5.7. Pharmacy consulted for glycemic management. FBS today = 163. VTE PROPHYLAXIS on SQ heparin. DISPOSITION To be determined. Internal Medicine follow-up with Dr. Juarez. Cardiology follow-up with Drs. Reese and Inga. Vital Signs: Date Time Temp Pulse Resp B/P (MAP) Pulse Ox O2 Delivery O2 Flow Rate FiO2 08/25/17 16:21 36.6 95 20 89/61 (70) 97 Room Air 08/25/17 16:00 Room Air 08/25/17 12:00 Room Air 08/25/17 11:42 36.5 86 19 92/61 (71) 98 Room Air 08/25/17 08:00 Room Air 08/25/17 07:54 36.6 85 19 99/64 (76) 97 08/25/17 04:00 Room Air 08/25/17 03:48 36.7 83 17 92/59 (70) 98 Room Air 08/25/17 00:05 Room Air 08/24/17 23:48 36.6 84 17 94/60 (71) 98 Room Air Lab Results: Results Past 24 Hours Test 08/25/17 06:32 08/25/17 06:47 08/25/17 11:04 08/25/17 16:20 Range/Units White Blood Count 7.75 4.8-10.8 K/uL Red Blood Count 3.53 4.7-6.1 M/uL Hemoglobin 10.7 14.0-18.0 g/dL Hematocrit 31.4 42-52 % Mean Corpuscular Volume 89.0 80-100 fL Mean Corpuscular Hemoglobin 30.3 25-34 pg Mean Corpuscular Hemoglobin Concent 34.1 32-36 g/dl RDW Standard Deviation 49.6 36.4-46.3 fL RDW Coefficient of Variation 15.4 11.5-14.5 % Platelet Count 230 130-400 K/uL Mean Platelet Volume 9.2 7.4-10.4 fL Sodium Level 132 136-145 mmol/L Potassium Level 5.0 3.5-5.1 mmol/L Chloride Level 104 98-107 mmol/L Carbon Dioxide Level 21 21-32 mmol/L Anion Gap 7.0 3-11 mmol/L Blood Urea Nitrogen 85 7-18 mg/dl Creatinine 2.41 0.60-1.40 mg/dl Est Creatinine Clear Calc Drug Dose 21.9 ml/min Estimated GFR () 26.8 Estimated GFR (Non- 23.1 BUN/Creatinine Ratio 35.1 10-20 Random Glucose 148 70-99 mg/dl Calcium Level 8.1 8.5-10.1 mg/dl Magnesium Level 3.2 1.8-2.4 mg/dl Bedside Glucose 152 153 185 70-99 mg/dl
[2017-08-25 20:42] VITALS: BP 95/60; PULSE 85; TEMP 36.6; O2SAT 97
[2017-08-25] MEDS ORDERED: ZOLPIDEM TARTRATE 5 MG TAB PO ONE (21:00)
[2017-08-25 23:31] VITALS: BP 93/61; PULSE 80; TEMP 36.5; O2SAT 97
[2017-08-26 04:29] VITALS: BP 89/55; PULSE 82; TEMP 36.3; O2SAT 96
[2017-08-26 06:38] LABS: CALCIUM 8.2 mg/dl (8.5-10.1); CREATININE 2.59 mg/dl (0.60-1.40); POTASSIUM 5.4 mmol/L (3.5-5.1)
[2017-08-26 07:46] VITALS: BP 96/63; PULSE 80; TEMP 36.4; O2SAT 98
[2017-08-26] MEDS: ASPIRIN 81 MG ECTAB PO SCH (07:57)
[2017-08-26] MEDS: INSULIN ASPART 100 UNITS/ML 3 ML PEN SC SCH ×4 (07:57→21:00)
[2017-08-26] MEDS: HEPARIN SOD 5000 UNIT/0.5 ML CARP SQ SCH ×2 (07:59→21:16)
[2017-08-26] MEDS: CALCITRIOL 0.25 MCG CAP PO SCH (08:42)
[2017-08-26] MEDS: CHOLECALCIFEROL 1000 INTER.UNIT TAB PO SCH (08:42)
[2017-08-26] MEDS: METOPROLOL SUCC 25MG EXT REL TAB PO SCH (08:42)
[2017-08-26 11:55] VITALS: BP 93/61; PULSE 83; TEMP 36.4; O2SAT 96
--- NOTE | 2017-08-26 12:00 | SURGERY PROGRESS NOTE ---
DATE: 08/26/2017 SUBJECTIVE: Mr. Segura was seen today. He is on room air at 98% saturations. He had no evidence of malignancy or infection on his transudative effusion. At this point, we would continue to watch him. I would not intervene his chest unless circumstances change.
--- NOTE | 2017-08-26 13:20 | Pharmacy Progress Note ---
Pharmacy Glycemic Short Note 2 Date of Service Aug 26, 2017. OUTPATIENT ANTIDIABETIC REGIMEN: * Lantus 8 units HS ASSESSMENT: * Ms Segura is an 86 y/o M with a PMH of HTN and CKD stage III who is admitted with angina and SOB. He was diagnosed with CHF and a possible NSTEMI while here. At home, the patient's diabetes is well controlled. Over the past few days , the patient's Lantus has been titrated upwards to 14 units daily (increased from 8 units at home) with Novolog. Patient received 26 units yesterday (14 of which were Lantus). * Patient fasting today is 149 mg/dL which is similar to yesterday's fasting blood sugar. Maintain dose of 14 units daily because this dose was just moved to evening. Once this is settled it is reasonable to titrate upwards. The patient's pre-prandial blood sugars appear well controlled. Tightened carbohydrate ratio slightly but this will most likely not make much of a difference. PLAN FOR INPATIENT GLYCEMIC CONTROL: * Basal insulin * Lantus 14 units SQ HS * Bolus insulin * NovoLog per scale ACHS or Q6hrs while NPO * Goal Range: Low 110 mg/dL - High 140 mg/dL * Correction Factor: 30 mg/dL/unit * Nutritional / Prandial insulin per carb ratio of 1 unit per 9 grams CHO consumed PLAN FOR DISCHARGE: * Mr Segura is well-controlled on his home regimen. There is a large disparity between what he takes at home and what the patient is receiving here. Reasonable to speak with patient to determine if higher regimen necessary at home or if the regimen used here is because of the stress from CHF/NSTEMI.
[2017-08-26 15:20] LABS: CALCIUM 8.3 mg/dl (8.5-10.1); CREATININE 2.55 mg/dl (0.60-1.40)
[2017-08-26 15:57] VITALS: BP 95/62; PULSE 84; TEMP 36.4; O2SAT 96
--- NOTE | 2017-08-26 16:57 | Cardiology Follow-Up ---
Subjective General Date of Service: Aug 26, 2017. Chief Complaint: follow up shortness of breath Pt evaluation today including: conversation w/ patient, physical exam, chart review, lab review, review of studies, review of inpatient medication list History of Present Illness The patient is a 86 year old male seen in follow up. Complains of mild abdominal discomfort after lunch today. Denies nausea. No CP or SOB at rest. 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 Review of Systems Respiratory: + dyspnea on exertion, No cough, No sputum, No wheezing, No shortness of breath, No dyspnea at rest, No hemoptysis Cardiac: No chest pain, No orthopnea, No PND, No edema, No claudication, No palpitations Physical Exam Vital Signs Last Vital Signs Documentation Date Time Temp Pulse Resp B/P (MAP) Pulse Ox O2 Delivery O2 Flow Rate FiO2 08/26/17 16:00 Room Air 08/26/17 15:57 36.4 84 16 95/62 (73) 96 Physical Exam Constitutional: Level of Distress: acutely ill Head: normocephalic Neck: supple Lungs: Auscultation: pertinent finding (decreased BS at the bases, left worse than right ) Cardiovascular: Heart Auscultation: RRR, pertinent finding (soft systolic ejection murmur) Extremities: no edema Neurologic: Gait & Station: pertinent finding (mental status appropriate, he follows commands ) Assessment and Plan Assessment and Plan Impression: 1. Acute decompensated systolic heart failure (EF < 25%) -s/p left thoracentesis 2/8 of 1 L of pleural fluid with interval symptomatic improvement and improvement of CXR 2. Underlying history of critical severe aortic valve stenosis 3. Acute kidney injury, on chronic kidney disease, creatinine , 2.5 mg/dl today compared to 1.7 mg/dl in 05/2017. 4. 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 Hold diuretic therapy today. Repeat BMP in AM. Continue low-dose metoprolol succinate 12.5 mg daily. Not a candidate for ELLEN / ARB, Aldactone , digoxin, or Entresto given his renal insufficiency. Unfortunately, options are limited with decline in LVEF and ARF. Aortic valve disease is likely inoperable at present from both a surgical AVR and transcatheter aortic valve replacement standpoint. Per review of previous cardiology notes -- Patient and family are interested in TAVR opinion, [facility] valve clinic consultation requested post discharge. Referral placed by Dr. Xiong. Laboratory Results Last 24 Hours Test 08/25/17 20:16 08/26/17 05:25 08/26/17 06:57 08/26/17 11:24 Bedside Glucose 190 mg/dl 137 mg/dl 168 mg/dl Sodium Level 132 mmol/L Potassium Level 5.4 mmol/L Chloride Level 103 mmol/L Carbon Dioxide Level 21 mmol/L Anion Gap 8.0 mmol/L Blood Urea Nitrogen 99 mg/dl Creatinine 2.59 mg/dl Est Creatinine Clear Calc Drug Dose 20.4 ml/min Estimated GFR () 24.5 Estimated GFR (Non- 21.2 BUN/Creatinine Ratio 38.2 Random Glucose 149 mg/dl Calcium Level 8.2 mg/dl Magnesium Level 3.4 mg/dl Test 08/26/17 14:28 Sodium Level 134 mmol/L Potassium Level 5.0 mmol/L Chloride Level 103 mmol/L Carbon Dioxide Level 23 mmol/L Anion Gap 8.0 mmol/L Blood Urea Nitrogen 108 mg/dl Creatinine 2.55 mg/dl Est Creatinine Clear Calc Drug Dose 20.7 ml/min Estimated GFR () 25.0 Estimated GFR (Non- 21.6 BUN/Creatinine Ratio 42.3 Random Glucose 155 mg/dl Calcium Level 8.3 mg/dl
--- NOTE | 2017-08-26 19:14 | Progress Note ---
Medicine Progress Note Date & Time of Visit: Aug 26, 2017 at 10:59 . Subjective CC: Follow-up visit for multiple problems. HPI: Dyspnea improved. Cough improved. Had a small amount of hemoptysis yesterday. No chest pain. No nausea or vomiting. No diarrhea. No fever or chills. Got some sleep last night after taking Ambien. Daughter visiting. ROS: as noted above in HPI . Objective Last 8 Hrs Date Time Temp Pulse Resp B/P (MAP) Pulse Ox O2 Delivery O2 Flow Rate FiO2 08/26/17 08:00 Room Air 08/26/17 07:46 36.4 80 20 96/63 (74) 98 Room Air 08/26/17 04:29 36.3 82 18 89/55 (66) 96 Room Air 08/26/17 04:00 Room Air Physical Exam: General- lying in bed; no distress Lungs- few rales left base; no significant wheezing; no respiratory distress Cardiovascular- RRR; I/ systolic murmur at base; no gallop appreciated; + JVD ; no pretibial edema Abdomen- + bowel sounds, soft, nontender Extremities- no cyanosis; no calf tenderness; transmetatarsal amputation left foot Neuro- alert, oriented Skin- warm & dry . Laboratory Results: Last 24 Hours Test 08/25/17 11:04 08/25/17 16:20 08/25/17 20:16 08/26/17 05:25 Bedside Glucose 153 mg/dl 185 mg/dl 190 mg/dl Sodium Level 132 mmol/L Potassium Level 5.4 mmol/L Chloride Level 103 mmol/L Carbon Dioxide Level 21 mmol/L Anion Gap 8.0 mmol/L Blood Urea Nitrogen 99 mg/dl Creatinine 2.59 mg/dl Est Creatinine Clear Calc Drug Dose 20.4 ml/min Estimated GFR () 24.5 Estimated GFR (Non- 21.2 BUN/Creatinine Ratio 38.2 Random Glucose 149 mg/dl Calcium Level 8.2 mg/dl Magnesium Level 3.4 mg/dl Test 08/26/17 06:57 Bedside Glucose 137 mg/dl Date/Time Source Procedure Growth Status 08/25/17 21:55 Sputum Expectorated Sputum Gram Stain - Final Resulted 08/25/17 21:55 Sputum Expectorated Sputum Sputum Culture Pending Resulted Assessment & Plan CHF Exam, chest x-ray, elevated BNP consistent with CHF. Acute on chronic left ventricular systolic heart failure with underlying severe aortic stenosis. Echo showed LVEF < 25%. Improved with diuresis. No ELLEN, ARB, or spironolactone due to renal disease. Receiving metoprolol succinate. Further management per Cardiology. ELEVATED CARDIAC MARKERS Probable non-STEMI. Received IV heparin x 2 days. Continue aspirin, metoprolol, LDL-c = 29. Further management per Cardiology. AORTIC STENOSIS Severe aortic stenosis per echo. Further management per Cardiology. COUGH Afebrile. 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 Cough probably due to CHF. Improved. PLEURAL EFFUSION Left thoracentesis performed by Thoracic Surgery. Transudate. Probably due to CHF. Cultures negative so far. Cytology negative. Follow. CHRONIC KIDNEY DISEASE III / ACUTE KIDNEY INJURY CKD III with baseline creatinine around 1.5. Creatinine at time of admission 2.14. Nephrology consulted. Creatinine today = 2.55. Furosemide on hold Avoid potential nephrotoxins when able. Follow. DM TYPE 2 Well-controlled at home. Hgb A1C = 5.7. Pharmacy consulted for glycemic management. FBS today = 169. VTE PROPHYLAXIS Initially received IV heparin; transitioned to SQ heparin. DISPOSITION To be determined. Internal Medicine follow-up with Dr. Juarez. Cardiology follow-up with Drs. Reese and Inga. . Current Inpatient Medications: Current Inpatient Medications Medications (Trade) Dose Ordered Sig/Isaiah Route Start Time Stop Time Status Last Admin Dose Admin Acetaminophen (Tylenol Tab) 650 mg Q4H PRN PO 08/22/17 13:45 09/21/17 13:44 Insulin Aspart (novoLOG ASPART) SLIDING SCALE ACHS SC 08/22/17 21:00 09/21/17 20:59 08/26/17 07:57 3 UNITS Glucose (Glucose 40% Gel) 15-30 GRAMS 15 GRAMS... UD PRN PO 08/22/17 19:45 09/21/17 19:44 Glucose (Glucose Chew Tab) 4-8 Tablets 4 Tabl... UD PRN PO 08/22/17 19:45 09/21/17 19:44 Dextrose (Dextrose 50% 50ML Syringe) 25-50ML OF 50% DW IV FOR... UD PRN IV 08/22/17 19:45 09/21/17 19:44 Glucagon (Glucagon Inj) 1 mg UD PRN SQ 08/22/17 19:45 09/21/17 19:44 Miscellaneous Information (Consult Glycemic Management Pharmacy) 1 ea UD PRN N/A 08/22/17 19:58 09/21/17 19:57 Morphine Sulfate (MoRPHine SULFATE INJ) 2 mg Q4H PRN IV 08/22/17 19:45 09/05/17 19:44 Al Hydroxide/Mg Hydroxide/ Lidocaine HCl/ Barcode Q8H PRN PO 08/22/17 20:15 09/21/17 20:14 Aspirin (Ecotrin Tab) 81 mg DAILY PO 08/23/17 09:00 09/22/17 08:59 08/26/17 07:57 81 MG Metoprolol Succinate (Toprol Xl Tab) 12.5 mg QAM PO 08/24/17 09:00 09/23/17 08:59 08/26/17 08:42 12.5 MG Insulin Glargine (Lantus Solostar Pen) 14 units HS SC 08/25/17 17:00 09/24/17 16:59 08/25/17 18:09 14 UNITS Heparin Sodium (Porcine) (Heparin Sq 5000 Unit/0.5ml) 5,000 unit Q12 SQ 08/24/17 21:00 09/23/17 20:59 08/26/17 07:59 5,000 UNIT Cholecalciferol (Vitamin D Tab) 1,000 inter.unit QAM PO 08/24/17 16:30 09/23/17 16:29 08/26/17 08:42 1,000 INTER.UNIT Calcitriol (Rocaltrol Cap) 0.25 mcg DAILY PO 08/24/17 16:30 09/23/17 16:29 08/26/17 08:42 0.25 MCG
[2017-08-26 20:49] VITALS: BP 103/68; PULSE 86; TEMP 36.4; O2SAT 93
[2017-08-26] MEDS: INSULIN GLARGINE SOLOSTAR 100 UNITS/ML 3 ML PEN SC SCH (21:16)
[2017-08-26] MEDS: ZOLPIDEM TARTRATE 5 MG TAB PO PRN (21:50)
[2017-08-26 23:31] VITALS: BP 103/71; PULSE 81; TEMP 36.5; O2SAT 96
[2017-08-27 03:26] VITALS: BP 97/65; PULSE 85; TEMP 35.9; O2SAT 94
[2017-08-27 06:09] LABS: HEMATOCRIT 30.7 % (42-52); HEMOGLOBIN 10.3 g/dL (14.0-18.0); MEAN CORPUSCULAR HEMOGLOBIN 30.2 pg (25-34); MEAN CORPUSCULAR HGB CONC 33.6 g/dl (32-36); MEAN PLATELET VOLUME 9.5 fL (7.4-10.4); PLATELET COUNT 273 K/uL (130-400); RED CELL DISTRIBUTION WIDTH CV 15.3 % (11.5-14.5); WHITE BLOOD COUNT 7.31 K/uL (4.8-10.8)
[2017-08-27 06:17] LABS: CALCIUM 8.6 mg/dl (8.5-10.1); CREATININE 2.44 mg/dl (0.60-1.40); POTASSIUM 4.8 mmol/L (3.5-5.1)
[2017-08-27 07:25] VITALS: BP 96/65; PULSE 80; TEMP 36.5; O2SAT 95
[2017-08-27 08:00] VITALS: O2SAT 96
[2017-08-27] MEDS: INSULIN ASPART 100 UNITS/ML 3 ML PEN SC SCH ×4 (08:26→21:26)
[2017-08-27] MEDS: HEPARIN SOD 5000 UNIT/0.5 ML CARP SQ SCH ×2 (08:27→21:28)
[2017-08-27] MEDS: CALCITRIOL 0.25 MCG CAP PO SCH (08:28)
[2017-08-27] MEDS: METOPROLOL SUCC 25MG EXT REL TAB PO SCH (08:28)
[2017-08-27] MEDS: ASPIRIN 81 MG ECTAB PO SCH (08:29)
[2017-08-27] MEDS: CHOLECALCIFEROL 1000 INTER.UNIT TAB PO SCH (08:29)
--- NOTE | 2017-08-27 11:06 | Cardiology Follow-Up ---
Subjective General Date of Service: Aug 27, 2017. Chief Complaint: follow up shortness of breath Pt evaluation today including: conversation w/ patient, physical exam, chart review, lab review, review of studies, review of inpatient medication list History of Present Illness The patient is a 86 year old male seen in follow-up. Denies chest discomfort or dyspnea at rest. No dysrhythmias on telemetry. Mildly improved creatinine today. 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 Review of Systems Respiratory: + dyspnea on exertion, No cough, No sputum, No wheezing, No shortness of breath, No dyspnea at rest, No hemoptysis Cardiac: No chest pain, No orthopnea, No PND, No edema, No claudication, No palpitations Physical Exam Vital Signs Last Vital Signs Documentation Date Time Temp Pulse Resp B/P (MAP) Pulse Ox O2 Delivery O2 Flow Rate FiO2 08/27/17 07:25 36.5 80 18 96/65 (75) 95 Room Air Physical Exam Constitutional: Level of Distress: acutely ill Head: normocephalic Neck: supple Lungs: Auscultation: pertinent finding (decreased BS at the bases, left worse than right ) Cardiovascular: Heart Auscultation: RRR, pertinent finding (soft systolic ejection murmur) Extremities: no edema Neurologic: Gait & Station: pertinent finding (mental status appropriate, he follows commands ) Assessment and Plan Assessment and Plan Impression: 1. Acute decompensated systolic heart failure (EF < 25%) -s/p left thoracentesis 2/8 of 1 L of pleural fluid with interval symptomatic improvement and improvement of CXR -patient improving; diuretic therapy currently on hold 2. Underlying history of critical severe aortic valve stenosis 3. Acute kidney injury, on chronic kidney disease, creatinine , 2.5 mg/dl today compared to 1.7 mg/dl in 05/2017. 4. 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 Repeat CXR in AM. Continue to hold diuretic therapy secodary to renal dysfunction and borderline hypotension. Repeat BMP in AM. Continue low-dose metoprolol succinate 12.5 mg daily. Not a candidate for ELLEN / ARB, Aldactone , digoxin, or Entresto given his renal insufficiency. Unfortunately, options are limited with decline in LVEF and ARF. Aortic valve disease is likely inoperable at present from both a surgical AVR and transcatheter aortic valve replacement standpoint - Discussed with patient at bedside. Per review of previous cardiology notes -- Patient and family are interested in TAVR opinion, [facility] valve clinic consultation requested post discharge. Referral placed by Dr. Xiong. Laboratory Results Last 24 Hours Test 08/26/17 11:24 08/26/17 14:28 08/26/17 16:27 08/26/17 20:31 Bedside Glucose 168 mg/dl 169 mg/dl 122 mg/dl Sodium Level 134 mmol/L Potassium Level 5.0 mmol/L Chloride Level 103 mmol/L Carbon Dioxide Level 23 mmol/L Anion Gap 8.0 mmol/L Blood Urea Nitrogen 108 mg/dl Creatinine 2.55 mg/dl Est Creatinine Clear Calc Drug Dose 20.7 ml/min Estimated GFR () 25.0 Estimated GFR (Non- 21.6 BUN/Creatinine Ratio 42.3 Random Glucose 155 mg/dl Calcium Level 8.3 mg/dl Test 08/27/17 05:31 08/27/17 06:53 White Blood Count 7.31 K/uL Red Blood Count 3.41 M/uL Hemoglobin 10.3 g/dL Hematocrit 30.7 % Mean Corpuscular Volume 90.0 fL Mean Corpuscular Hemoglobin 30.2 pg Mean Corpuscular Hemoglobin Concent 33.6 g/dl RDW Standard Deviation 50.0 fL RDW Coefficient of Variation 15.3 % Platelet Count 273 K/uL Mean Platelet Volume 9.5 fL Sodium Level 134 mmol/L Potassium Level 4.8 mmol/L Chloride Level 104 mmol/L Carbon Dioxide Level 20 mmol/L Anion Gap 10.0 mmol/L Blood Urea Nitrogen 114 mg/dl Creatinine 2.44 mg/dl Est Creatinine Clear Calc Drug Dose 21.6 ml/min Estimated GFR () 26.4 Estimated GFR (Non- 22.8 BUN/Creatinine Ratio 46.8 Random Glucose 112 mg/dl Calcium Level 8.6 mg/dl Magnesium Level 3.5 mg/dl Bedside Glucose 151 mg/dl
[2017-08-27 11:28] VITALS: BP 109/74; PULSE 90; TEMP 36.5; O2SAT 98
[2017-08-27] MEDS ORDERED: CEFEPIME IV 2,000 MG in DEXTROSE 5% 100ML 100 ML IV SCH (13:30)
[2017-08-27] MEDS ORDERED: CEFEPIME CONSULT ACTIVE PRN (14:00)
[2017-08-27] MEDS ORDERED: CEFEPIME IV 2,000 MG in SYRINGE 7.5 ML IV ONE (14:30)
[2017-08-27 15:19] VITALS: BP 100/65; PULSE 74; TEMP 36.4; O2SAT 97
[2017-08-27 19:55] VITALS: BP 102/67; PULSE 80; TEMP 36.7; O2SAT 95
--- NOTE | 2017-08-27 20:22 | Progress Note ---
Medicine Progress Note Date & Time of Visit: Aug 27, 2017 at 09:30 . Subjective CC: Follow-up visit for multiple problems. HPI: Dyspnea improved. Cough improved; no further hemoptysis. No chest pain. No nausea or vomiting. No diarrhea. No fever or chills. No urinary symptoms. ROS: as noted above in HPI . Objective Last 8 Hrs Date Time Temp Pulse Resp B/P (MAP) Pulse Ox O2 Delivery O2 Flow Rate FiO2 08/27/17 19:55 36.7 80 20 102/67 (79) 95 Room Air 08/27/17 16:00 Room Air 08/27/17 15:19 36.4 74 22 100/65 (77) 97 Room Air Physical Exam: General- lying in bed; no distress Lungs- few rales left base; no significant wheezing; no respiratory distress Cardiovascular- RRR; I/ systolic murmur at base; no gallop appreciated; + JVD ; no pretibial edema Abdomen- + bowel sounds, soft, nontender Extremities- no cyanosis; no calf tenderness; transmetatarsal amputation left foot Neuro- alert, oriented Skin- warm & dry . Laboratory Results: Last 24 Hours Test 08/26/17 20:31 08/27/17 05:31 08/27/17 06:53 08/27/17 10:59 Bedside Glucose 122 mg/dl 151 mg/dl 145 mg/dl White Blood Count 7.31 K/uL Red Blood Count 3.41 M/uL Hemoglobin 10.3 g/dL Hematocrit 30.7 % Mean Corpuscular Volume 90.0 fL Mean Corpuscular Hemoglobin 30.2 pg Mean Corpuscular Hemoglobin Concent 33.6 g/dl RDW Standard Deviation 50.0 fL RDW Coefficient of Variation 15.3 % Platelet Count 273 K/uL Mean Platelet Volume 9.5 fL Sodium Level 134 mmol/L Potassium Level 4.8 mmol/L Chloride Level 104 mmol/L Carbon Dioxide Level 20 mmol/L Anion Gap 10.0 mmol/L Blood Urea Nitrogen 114 mg/dl Creatinine 2.44 mg/dl Est Creatinine Clear Calc Drug Dose 21.6 ml/min Estimated GFR () 26.4 Estimated GFR (Non- 22.8 BUN/Creatinine Ratio 46.8 Random Glucose 112 mg/dl Calcium Level 8.6 mg/dl Magnesium Level 3.5 mg/dl Test 08/27/17 16:18 Bedside Glucose 146 mg/dl Assessment & Plan CHF Exam, chest x-ray, elevated BNP consistent with CHF. Acute on chronic left ventricular systolic heart failure with underlying severe aortic stenosis. Echo showed LVEF < 25%. Improved with diuresis. Furosemide held due to rising creatinine. No ELLEN, ARB, or spironolactone due to renal disease. Receiving metoprolol succinate. Follow-up chest x-ray ordered for the morning. Further management per Cardiology. ELEVATED CARDIAC MARKERS Probable non-STEMI. Received IV heparin x 2 days. Continue aspirin, metoprolol, LDL-c = 29. Further management per Cardiology. AORTIC STENOSIS Severe aortic stenosis per echo. Further management per Cardiology. COUGH / HEMOPTYSIS Afebrile. 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 Cough may be due to CHF and improved with diuresis. However, sputum culture growing gram negative bacilli. Rx with cefepime pending final culture result. Check sputum cytology. PLEURAL EFFUSION Left thoracentesis performed by Thoracic Surgery. Transudate. Probably due to CHF. Cultures negative so far. Cytology negative. Follow. CHRONIC KIDNEY DISEASE III / ACUTE KIDNEY INJURY CKD III with baseline creatinine around 1.5. Creatinine at time of admission 2.14. Nephrology consulted. Creatinine today = 2.44. Furosemide on hold Avoid potential nephrotoxins when able. Follow. DM TYPE 2 Well-controlled at home. Hgb A1C = 5.7. Pharmacy consulted for glycemic management. FBS today = 151. VTE PROPHYLAXIS Initially received IV heparin; transitioned to SQ heparin. DISPOSITION Family requesting transfer to [facility] and patient agrees. Consult Case Management. Internal Medicine follow-up with Dr. Juarez. Cardiology follow-up with Drs. Reese and Inga. . Current Inpatient Medications: Current Inpatient Medications Medications (Trade) Dose Ordered Sig/Isaiah Route Start Time Stop Time Status Last Admin Dose Admin Acetaminophen (Tylenol Tab) 650 mg Q4H PRN PO 08/22/17 13:45 09/21/17 13:44 Insulin Aspart (novoLOG ASPART) SLIDING SCALE ACHS SC 08/22/17 21:00 09/21/17 20:59 08/27/17 11:59 5 UNITS Glucose (Glucose 40% Gel) 15-30 GRAMS 15 GRAMS... UD PRN PO 08/22/17 19:45 09/21/17 19:44 Glucose (Glucose Chew Tab) 4-8 Tablets 4 Tabl... UD PRN PO 08/22/17 19:45 09/21/17 19:44 Dextrose (Dextrose 50% 50ML Syringe) 25-50ML OF 50% DW IV FOR... UD PRN IV 08/22/17 19:45 09/21/17 19:44 Glucagon (Glucagon Inj) 1 mg UD PRN SQ 08/22/17 19:45 09/21/17 19:44 Miscellaneous Information (Consult Glycemic Management Pharmacy) 1 ea UD PRN N/A 08/22/17 19:58 09/21/17 19:57 Morphine Sulfate (MoRPHine SULFATE INJ) 2 mg Q4H PRN IV 08/22/17 19:45 09/05/17 19:44 Al Hydroxide/Mg Hydroxide/ Lidocaine HCl/ Barcode Q8H PRN PO 08/22/17 20:15 09/21/17 20:14 Aspirin (Ecotrin Tab) 81 mg DAILY PO 08/23/17 09:00 09/22/17 08:59 08/27/17 08:29 81 MG Metoprolol Succinate (Toprol Xl Tab) 12.5 mg QAM PO 08/24/17 09:00 09/23/17 08:59 08/27/17 08:28 12.5 MG Insulin Glargine (Lantus Solostar Pen) 14 units HS SC 08/25/17 17:00 09/24/17 16:59 08/26/17 21:16 14 UNITS Heparin Sodium (Porcine) (Heparin Sq 5000 Unit/0.5ml) 5,000 unit Q12 SQ 08/24/17 21:00 09/23/17 20:59 08/27/17 08:27 5,000 UNIT Cholecalciferol (Vitamin D Tab) 1,000 inter.unit QAM PO 08/24/17 16:30 09/23/17 16:29 08/27/17 08:29 1,000 INTER.UNIT Calcitriol (Rocaltrol Cap) 0.25 mcg DAILY PO 08/24/17 16:30 09/23/17 16:29 08/27/17 08:28 0.25 MCG Zolpidem Tartrate (Ambien Tab) 5 mg HS PRN PO 08/26/17 11:30 09/25/17 11:29 08/26/17 21:50 5 MG Cefepime HCl (Consult) 1 ea UD PRN N/A 08/27/17 14:00 09/26/17 13:59 Cefepime HCl 1000 mg/Syringe 11 ml @ 5.5 mls/min DAILY@1200 IV 08/28/17 12:00 09/03/17 11:59
[2017-08-27] MEDS: INSULIN GLARGINE SOLOSTAR 100 UNITS/ML 3 ML PEN SC SCH (21:27)
[2017-08-28] VITALS (10 sets, daily range): BP systolic 92–111; BP diastolic 59–81; PULSE 67–85; TEMP 36.2–36.5; O2SAT 92–99
[2017-08-28 06:55] LABS: CALCIUM 8.5 mg/dl (8.5-10.1); CREATININE 2.39 mg/dl (0.60-1.40); POTASSIUM 4.7 mmol/L (3.5-5.1)
[2017-08-28] MEDS: CALCITRIOL 0.25 MCG CAP PO SCH (07:30)
[2017-08-28] MEDS: ASPIRIN 81 MG ECTAB PO SCH (07:30)
[2017-08-28] MEDS: CHOLECALCIFEROL 1000 INTER.UNIT TAB PO SCH (07:30)
[2017-08-28] MEDS: METOPROLOL SUCC 25MG EXT REL TAB PO SCH (07:30)
--- NOTE | 2017-08-28 08:22 | SURGERY PROGRESS NOTE ---
DATE: 08/28/2017 Mr. Segura has not really changed. He has excellent saturations on room air. Our final pathology, of course, shows no evidence of malignancy. Dr. Wellington's note was noted. He feels a bit better with his cough and dyspnea. At this point, referral will be made for the aortic valve clinic at [facility]. I am in agreement with this. I would simply perform periodic chest x-rays to make sure he is not reaccumulating.
--- NOTE | 2017-08-28 08:25 | DIAGNOSTIC IMAGING REPORT ---
CHEST 2 VIEWS ROUTINE HISTORY: Congestive heart failure. COMPARISON: Chest 08/25/2017. FINDINGS: No pneumothorax. The heart is mildly enlarged. Interstitial and vascular thickening has slightly improved. Small bilateral pleural effusions persist. Left-sided dual-chamber pacemaker. No new focal lung consolidations. IMPRESSION: 1. Slight improvement in the mild interstitial pulmonary edema. 2. Small bilateral pleural effusions persist. Electronically signed by: Rishi Escoto M.D. 08/28/2017 8:24 AM Dictated Date/Time: 08/28/2017 8:23 AM
[2017-08-28] MEDS: INSULIN ASPART 100 UNITS/ML 3 ML PEN SC SCH ×4 (08:40→21:55)
[2017-08-28] MEDS: HEPARIN SOD 5000 UNIT/0.5 ML CARP SQ SCH ×2 (08:41→21:56)
[2017-08-28] MEDS ORDERED: CEFEPIME IV 1,000 MG in SYRINGE 0 ML IV SCH (12:00)
--- NOTE | 2017-08-28 15:08 | Cardiology Follow-Up ---
Subjective General Date of Service: Aug 28, 2017. Chief Complaint: follow up shortness of breath Pt evaluation today including: conversation w/ patient, physical exam, chart review, lab review, review of studies, review of inpatient medication list History of Present Illness The patient is a 86 year old male seen in follow-up.\\ Denies chest pain or shortness of breath. States he feels "so-so" No orthopnea or PND. Creatinine mildly improved. 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 Review of Systems Respiratory: + dyspnea on exertion, No cough, No sputum, No wheezing, No shortness of breath, No dyspnea at rest, No hemoptysis Cardiac: No chest pain, No orthopnea, No PND, No edema, No claudication, No palpitations Physical Exam Vital Signs Last Vital Signs Documentation Date Time Temp Pulse Resp B/P (MAP) Pulse Ox O2 Delivery O2 Flow Rate FiO2 08/28/17 12:35 97 Room Air 08/28/17 11:30 36.2 77 20 92/59 (70) Physical Exam Constitutional: Level of Distress: acutely ill Head: normocephalic Neck: supple Lungs: Auscultation: pertinent finding (decreased BS at the bases, left worse than right ) Cardiovascular: Heart Auscultation: RRR, pertinent finding (soft systolic ejection murmur) Extremities: no edema Neurologic: Gait & Station: pertinent finding (mental status appropriate, he follows commands ) Assessment and Plan Assessment and Plan Impression: 1. Acute decompensated systolic heart failure (EF < 25%) -s/p left thoracentesis 2/8 of 1 L of pleural fluid with interval symptomatic improvement and improvement of CXR -patient improving; diuretic therapy currently on hold 2. Underlying history of critical aortic valve stenosis 3. Acute kidney injury, on chronic kidney disease, creatinine , 2.39 mg/dl today compared to 2.5 mg/dl 08/27/17 and 1.7mg/dl 05/2017. 4. 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 Continue to hold diuretic therapy secondary to renal dysfunction and borderline hypotension. Repeat BMP in AM. Continue low-dose metoprolol succinate 12.5 mg daily. Not a candidate for ELLEN / ARB, Aldactone , digoxin, or Entresto given his renal insufficiency. PT evaluation for possible placement. Aortic valve disease is likely inoperable at present from both a surgical AVR and transcatheter aortic valve replacement standpoint - Discussed with patient at bedside. Per review of previous cardiology notes -- Patient and family are interested in TAVR opinion, [facility] valve clinic consultation requested post discharge. Referral placed by Dr. Xiong. Patient will likely need some level of maintenance diuretic therapy in the outpatient setting. Dose to be determined. Laboratory Results Last 24 Hours Test 08/27/17 16:18 08/27/17 20:52 08/28/17 05:58 08/28/17 06:50 Bedside Glucose 146 mg/dl 151 mg/dl 119 mg/dl Sodium Level 135 mmol/L Potassium Level 4.7 mmol/L Chloride Level 104 mmol/L Carbon Dioxide Level 19 mmol/L Anion Gap 12.0 mmol/L Blood Urea Nitrogen 114 mg/dl Creatinine 2.39 mg/dl Est Creatinine Clear Calc Drug Dose 22.1 ml/min Estimated GFR () 27.0 Estimated GFR (Non- 23.3 BUN/Creatinine Ratio 47.6 Random Glucose 117 mg/dl Calcium Level 8.5 mg/dl Test 08/28/17 11:08 Bedside Glucose 174 mg/dl
[2017-08-28] MEDS ORDERED: PROMETHAZINE HCL INJ 12.5 MG in SODIUM CHLORIDE 0.9% 50ML 50 ML IV PRN (18:45)
--- NOTE | 2017-08-28 19:34 | Progress Note ---
Medicine Progress Note Date & Time of Visit: Aug 28, 2017 at 18:30 . Subjective CC: Follow-up visit for multiple problems. HPI: Tired. No fever or chills. No chest pain. Cough productive of blood-tinged sputum. Intermittent nausea, no vomiting. No diarrhea. No urinary symptoms. ROS: as noted above in HPI . Objective Last 8 Hrs Date Time Temp Pulse Resp B/P (MAP) Pulse Ox O2 Delivery O2 Flow Rate FiO2 08/28/17 16:23 97 Room Air 08/28/17 15:28 36.5 67 18 93/59 (70) 99 Room Air 08/28/17 12:35 97 Room Air Physical Exam: General- lying in bed; no distress Lungs- few rales left base; few rhonchi, no significant wheezing; no respiratory distress Cardiovascular- RRR; I/ systolic murmur at base; no gallop appreciated; + JVD ; no pretibial edema Abdomen- + bowel sounds, soft, nontender Extremities- no cyanosis; no calf tenderness; transmetatarsal amputation left foot Neuro- alert, oriented Skin- warm & dry . Laboratory Results: Last 24 Hours Test 08/27/17 20:52 08/28/17 05:58 08/28/17 06:50 08/28/17 11:08 Bedside Glucose 151 mg/dl 119 mg/dl 174 mg/dl Sodium Level 135 mmol/L Potassium Level 4.7 mmol/L Chloride Level 104 mmol/L Carbon Dioxide Level 19 mmol/L Anion Gap 12.0 mmol/L Blood Urea Nitrogen 114 mg/dl Creatinine 2.39 mg/dl Est Creatinine Clear Calc Drug Dose 22.1 ml/min Estimated GFR () 27.0 Estimated GFR (Non- 23.3 BUN/Creatinine Ratio 47.6 Random Glucose 117 mg/dl Calcium Level 8.5 mg/dl Test 08/28/17 16:22 Bedside Glucose 131 mg/dl Assessment & Plan CHF Exam, chest x-ray, elevated BNP consistent with CHF. Acute on chronic left ventricular systolic heart failure with underlying severe aortic stenosis. Echo showed LVEF < 25%. Improved with diuresis. Furosemide held due to rising creatinine. No ELLEN, ARB, or spironolactone due to renal disease. Receiving metoprolol succinate. Follow-up chest x-ray this morning showed improvement of pulmonary edema, small bilateral pleural effusions. Furosemide remains on hold due to elevated creatinine. Further management per Cardiology. ELEVATED CARDIAC MARKERS Probable non-STEMI. Received IV heparin x 2 days. Continue aspirin, metoprolol, LDL-c = 29. Further management per Cardiology. AORTIC STENOSIS Severe aortic stenosis per echo. Further management per Cardiology. COUGH / HEMOPTYSIS Afebrile. 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 Cough may be due to CHF and improved with diuresis. However, sputum culture growing gram negative bacilli = Pseudomonas. No infiltrates on chest x-ray, so apparent bronchitis. Receiving Rx with cefepime. Quinolones not best option due to prolonged QTc and at risk for delirium. Will continue cefepime. Sputum cytology pending. PLEURAL EFFUSION Left thoracentesis performed by Thoracic Surgery. Transudate. Probably due to CHF. Cultures negative so far. Cytology negative. Follow. CHRONIC KIDNEY DISEASE III / ACUTE KIDNEY INJURY CKD III with baseline creatinine around 1.5. Creatinine at time of admission 2.14. Nephrology consulted. Creatinine today = 2.39. Furosemide on hold Avoid potential nephrotoxins when able. Follow. DM TYPE 2 Well-controlled at home. Hgb A1C = 5.7. Pharmacy consulted for glycemic management. FBS today = 119. VTE PROPHYLAXIS Initially received IV heparin; transitioned to SQ heparin. DISPOSITION Family requesting transfer to [facility] and patient agrees. Case Management following. Internal Medicine follow-up with Dr. Juarez. Cardiology follow-up with Drs. Reese and Inga. . Current Inpatient Medications: Current Inpatient Medications Medications (Trade) Dose Ordered Sig/Isaiah Route Start Time Stop Time Status Last Admin Dose Admin Acetaminophen (Tylenol Tab) 650 mg Q4H PRN PO 08/22/17 13:45 09/21/17 13:44 Insulin Aspart (novoLOG ASPART) SLIDING SCALE ACHS SC 08/22/17 21:00 09/21/17 20:59 08/28/17 12:54 4 UNITS Glucose (Glucose 40% Gel) 15-30 GRAMS 15 GRAMS... UD PRN PO 08/22/17 19:45 09/21/17 19:44 Glucose (Glucose Chew Tab) 4-8 Tablets 4 Tabl... UD PRN PO 08/22/17 19:45 09/21/17 19:44 Dextrose (Dextrose 50% 50ML Syringe) 25-50ML OF 50% DW IV FOR... UD PRN IV 08/22/17 19:45 09/21/17 19:44 Glucagon (Glucagon Inj) 1 mg UD PRN SQ 08/22/17 19:45 09/21/17 19:44 Miscellaneous Information (Consult Glycemic Management Pharmacy) 1 ea UD PRN N/A 08/22/17 19:58 09/21/17 19:57 Morphine Sulfate (MoRPHine SULFATE INJ) 2 mg Q4H PRN IV 08/22/17 19:45 09/05/17 19:44 Al Hydroxide/Mg Hydroxide/ Lidocaine HCl/ Barcode Q8H PRN PO 08/22/17 20:15 09/21/17 20:14 Aspirin (Ecotrin Tab) 81 mg DAILY PO 08/23/17 09:00 09/22/17 08:59 08/28/17 07:30 81 MG Metoprolol Succinate (Toprol Xl Tab) 12.5 mg QAM PO 08/24/17 09:00 09/23/17 08:59 08/28/17 07:30 12.5 MG Insulin Glargine (Lantus Solostar Pen) 14 units HS SC 08/25/17 17:00 09/24/17 16:59 08/27/17 21:27 14 UNITS Heparin Sodium (Porcine) (Heparin Sq 5000 Unit/0.5ml) 5,000 unit Q12 SQ 08/24/17 21:00 09/23/17 20:59 08/28/17 08:41 5,000 UNIT Cholecalciferol (Vitamin D Tab) 1,000 inter.unit QAM PO 08/24/17 16:30 09/23/17 16:29 08/28/17 07:30 1,000 INTER.UNIT Calcitriol (Rocaltrol Cap) 0.25 mcg DAILY PO 08/24/17 16:30 09/23/17 16:29 08/28/17 07:30 0.25 MCG Zolpidem Tartrate (Ambien Tab) 5 mg HS PRN PO 08/26/17 11:30 09/25/17 11:29 08/26/17 21:50 5 MG Cefepime HCl (Consult) 1 ea UD PRN N/A 08/27/17 14:00 09/26/17 13:59 Cefepime HCl 2000 mg/Syringe 12.5 ml @ 5.5 mls/min DAILY@1200 IV 08/29/17 12:00 09/05/17 11:59 Promethazine HCl 12.5 mg/Sodium Chloride 50.5 ml @ 204 mls/hr Q6H PRN IV 08/28/17 18:45 09/27/17 18:44 UNV
[2017-08-28] MEDS: ZOLPIDEM TARTRATE 5 MG TAB PO PRN (21:52)
[2017-08-28] MEDS: INSULIN GLARGINE SOLOSTAR 100 UNITS/ML 3 ML PEN SC SCH (21:55)
[2017-08-29 03:22] VITALS: BP 109/74; PULSE 79; TEMP 37; O2SAT 93
[2017-08-29 06:11] LABS: HEMATOCRIT 31.1 % (42-52); HEMOGLOBIN 10.4 g/dL (14.0-18.0); MEAN CELL VOLUME 89.4 fL (80-100); MEAN CORPUSCULAR HEMOGLOBIN 29.9 pg (25-34); MEAN CORPUSCULAR HGB CONC 33.4 g/dl (32-36); MEAN PLATELET VOLUME 9.2 fL (7.4-10.4); PLATELET COUNT 289 K/uL (130-400); RED CELL DISTRIBUTION WIDTH CV 15.6 % (11.5-14.5); RED CELL DISTRIBUTION WIDTH SD 50.2 fL (36.4-46.3); WHITE BLOOD COUNT 7.89 K/uL (4.8-10.8)
[2017-08-29 06:41] LABS: CALCIUM 8.4 mg/dl (8.5-10.1); CREATININE 2.55 mg/dl (0.60-1.40); POTASSIUM 4.6 mmol/L (3.5-5.1)
[2017-08-29 07:28] VITALS: BP 107/69; PULSE 76; TEMP 36.5; O2SAT 97
[2017-08-29 08:01] VITALS: O2SAT 97
[2017-08-29] MEDS: ASPIRIN 81 MG ECTAB PO SCH (08:16)
[2017-08-29] MEDS: CALCITRIOL 0.25 MCG CAP PO SCH (08:16)
[2017-08-29] MEDS: METOPROLOL SUCC 25MG EXT REL TAB PO SCH (08:17)
[2017-08-29] MEDS: CHOLECALCIFEROL 1000 INTER.UNIT TAB PO SCH (08:17)
[2017-08-29] MEDS: HEPARIN SOD 5000 UNIT/0.5 ML CARP SQ SCH ×2 (08:24→21:11)
[2017-08-29] MEDS: INSULIN ASPART 100 UNITS/ML 3 ML PEN SC SCH ×4 (08:24→21:10)
--- NOTE | 2017-08-29 10:45 | Pharmacy Progress Note ---
Pharmacy Glycemic Sign Off Nt Date of Service Aug 29, 2017. Assessment & Plan ASSESSMENT: * Pharmacy was consulted by Joseline Strickland PA-C on 08/22/17 for glycemic control and to write orders per [facility] inpatient glycemic control protocol. * Major changes made by pharmacy to antidiabetic regimen include: * Titrating outpatient basal insulin dosing to goal AM fasting BSG * Adding NovoLog bolus/SSI insulin regimen for inpatient use * Patient has been receiving/requiring 25 units of insulin per day for adequate glycemic control * BSGs ranging 117 - 202 mg/dl * Regimen has only required minor adjustments over the past 48hrs to achieve this level of control * Do not anticipate further changes in patient status that would quickly deteriorate glycemic control (i.e. patient to be NPO for upcoming procedure, steroids tapering, starting tube feedings, etc). * Please see recommendations for outpatient antidiabetic regimen below. PLAN FOR INPATIENT GLYCEMIC CONTROL: No changes needed to current regimen. * Continue basal insulin with Lantus 14 units SQ HS * Continue NovoLog per scale ACHS/Q6hrs while NPO * Goal range = 110 - 140 mg/dl * CF = 30 mg/dl/unit * CR = 1 unit for ever 9 g CHO consumed * Pharmacy is signing off of glycemic consult and will no longer be making adjustments to inpatient regimen. Please feel free to re-consult if needed. Thank you. DISCHARGE RECOMMENDATIONS: * A1c 5.7 % on 08/23/17 * This is likely somewhat unreliable due to CKD and altered RBC turnover rate. * Patient has been requiring significantly more insulin for admission as compared to outpatient dosing (8 units as an outpatient and 25 units as an inpatient). HOWEVER, based on advanced age and co-morbidities would not recommend making any changes to outpatient regimen. Goal for outpatient would be to just maintain BSG 150-250 mg/dl. Current glycemic control with increased insulin regimen is more stringent that this. * No changes needed to outpatient regimen at discharge.
[2017-08-29 12:08] VITALS: O2SAT 97
--- NOTE | 2017-08-29 12:36 | Cardiology Follow-Up ---
Subjective General Date of Service: Aug 29, 2017. Chief Complaint: follow up shortness of breath Pt evaluation today including: conversation w/ patient, physical exam, chart review, lab review, review of studies, review of inpatient medication list History of Present Illness The patient is a 86 year old male seen in follow-up. Creatinine trending upward. No changes overnight. Patient denies chest pain. 7 beat lucía of nonsustained ventricular tachycardia recorded on telemetry without associated symptoms. 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 Review of Systems Respiratory: + cough, + dyspnea on exertion, No sputum, No wheezing, No shortness of breath, No dyspnea at rest, No hemoptysis Cardiac: No chest pain, No orthopnea, No PND, No edema, No claudication, No palpitations Physical Exam Vital Signs Last Vital Signs Documentation Date Time Temp Pulse Resp B/P (MAP) Pulse Ox O2 Delivery O2 Flow Rate FiO2 08/29/17 12:08 97 Room Air 08/29/17 07:28 36.5 76 18 107/69 (82) Physical Exam Constitutional: Level of Distress: acutely ill Head: normocephalic Neck: supple Lungs: Auscultation: pertinent finding (decreased BS at the bases, left worse than right ) Cardiovascular: Heart Auscultation: RRR, pertinent finding (soft systolic ejection murmur) Extremities: no edema Neurologic: Gait & Station: pertinent finding (mental status appropriate, he follows commands ) Assessment and Plan Assessment and Plan Impression: 1. Acute decompensated systolic heart failure (EF < 25%) -s/p left thoracentesis 2/8 of 1 L of pleural fluid with interval symptomatic improvement and improvement of CXR -patient unchanged today, diuretic therapy currently on hold 2. Underlying history of critical aortic valve stenosis 3. Acute kidney injury, on chronic kidney disease, creatinine , creatinine 2.55 mg/dl today compared to 2.39 yesterday, and 2.5 mg/dl 08/27/17. 4. 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 Continue to hold diuretic therapy secondary to renal dysfunction and borderline hypotension. Repeat BMP in AM. Continue low-dose metoprolol succinate 12.5 mg daily. Not a candidate for ELLEN / ARB, Aldactone , digoxin, or Entresto given his renal insufficiency. PT evaluation for possible placement. Aortic valve disease is likely inoperable at present from both a surgical AVR and transcatheter aortic valve replacement standpoint - Discussed with patient at bedside. Per review of previous cardiology notes -- Patient and family are interested in TAVR opinion, [facility] valve clinic consultation requested post discharge. Referral placed by Dr. Xiong. Laboratory Results Last 24 Hours Test 08/28/17 16:22 08/28/17 20:36 08/29/17 05:42 08/29/17 06:22 Bedside Glucose 131 mg/dl 202 mg/dl 131 mg/dl White Blood Count 7.89 K/uL Red Blood Count 3.48 M/uL Hemoglobin 10.4 g/dL Hematocrit 31.1 % Mean Corpuscular Volume 89.4 fL Mean Corpuscular Hemoglobin 29.9 pg Mean Corpuscular Hemoglobin Concent 33.4 g/dl RDW Standard Deviation 50.2 fL RDW Coefficient of Variation 15.6 % Platelet Count 289 K/uL Mean Platelet Volume 9.2 fL Sodium Level 137 mmol/L Potassium Level 4.6 mmol/L Chloride Level 106 mmol/L Carbon Dioxide Level 21 mmol/L Anion Gap 10.0 mmol/L Blood Urea Nitrogen 114 mg/dl Creatinine 2.55 mg/dl Est Creatinine Clear Calc Drug Dose 20.7 ml/min Estimated GFR () 25.0 Estimated GFR (Non- 21.6 BUN/Creatinine Ratio 44.5 Random Glucose 125 mg/dl Calcium Level 8.4 mg/dl Test 08/29/17 11:46 Bedside Glucose 143 mg/dl
[2017-08-29] MEDS: CEFEPIME IV 2,000 MG in SYRINGE 0 ML IV SCH (12:49)
--- NOTE | 2017-08-29 13:38 | Progress Note ---
Medicine Progress Note Date & Time of Visit: Aug 29, 2017 at 13:16. Subjective Pt was seen and examined Lying in bed with no distress Pt said that he feels ok Denies any chest pain, palpitation, dizziness and SOB Objective Last 8 Hrs Date Time Temp Pulse Resp B/P (MAP) Pulse Ox O2 Delivery O2 Flow Rate FiO2 08/29/17 12:08 97 Room Air 08/29/17 08:01 97 Room Air 08/29/17 07:28 36.5 76 18 107/69 (82) 97 Room Air Physical Exam: General- No acute distress Head- atraumatic Eyes- PERRL, EOMI ENT- oropharynx clear Neck- supple Lungs- Decrease BS Heart- regular rhythm, +systolic murmur Abdomen- normal bowel sounds, soft Extremities- no calf tenderness Neuro- alert, oriented x 3; PERRL, EOMI Skin- warm & dry Laboratory Results: Last 24 Hours Test 08/28/17 16:22 08/28/17 20:36 08/29/17 05:42 08/29/17 06:22 Bedside Glucose 131 mg/dl 202 mg/dl 131 mg/dl White Blood Count 7.89 K/uL Red Blood Count 3.48 M/uL Hemoglobin 10.4 g/dL Hematocrit 31.1 % Mean Corpuscular Volume 89.4 fL Mean Corpuscular Hemoglobin 29.9 pg Mean Corpuscular Hemoglobin Concent 33.4 g/dl RDW Standard Deviation 50.2 fL RDW Coefficient of Variation 15.6 % Platelet Count 289 K/uL Mean Platelet Volume 9.2 fL Sodium Level 137 mmol/L Potassium Level 4.6 mmol/L Chloride Level 106 mmol/L Carbon Dioxide Level 21 mmol/L Anion Gap 10.0 mmol/L Blood Urea Nitrogen 114 mg/dl Creatinine 2.55 mg/dl Est Creatinine Clear Calc Drug Dose 20.7 ml/min Estimated GFR () 25.0 Estimated GFR (Non- 21.6 BUN/Creatinine Ratio 44.5 Random Glucose 125 mg/dl Calcium Level 8.4 mg/dl Test 08/29/17 11:46 Bedside Glucose 143 mg/dl Assessment & Plan ACUTE DECOMPENSATED SYSTOLIC CHF CXR on admission showed Congestive heart failure with Small left effusion. Elevated BNP on admission. Echo showed LVEF < 25%. Received diuresis, showed improvement Furosemide has been on hold due to elevated creatinine. Continue holding ACEI, ARB, or spironolactone due to renal failure Cardiology on board recommended to continue holding diuresis and ACEI Further management per Cardiology. ELEVATED CARDIAC MARKERS Possible Non-STEMI Was on IV heparin. Continue aspirin, metoprolol, ECHO showed Abnormal septal wall motion is present consistent with right ventricular pacing. There is diffuse left ventricular hypokinesis to akinesis with akinesis of the apical segments. Stable AORTIC STENOSIS Echo showed aortic valve is severely calcified with severe restriction of the cusps. Seems to be inoperable at present as per cardio Consult placed for [facility] valve clinic consultation requested post discharge. Further management per Cardiology. COUGH / HEMOPTYSIS influenza negative. CXR showed no infiltrates Sputum cx positive for Pseudomonas. Continue Cefepime. PLEURAL EFFUSION S/P Left thoracentesis performed by Thoracic Surgery. Transudate. Cytology negative. stable CHRONIC KIDNEY DISEASE III / ACUTE KIDNEY INJURY Creatine on admission 2.14, baseline creatinine around 1.5. Creatine increased to 2.55 today Continue avoid nephrotoxic agents nephrology on board Lasix has been on hold Continue monitor BMP DM TYPE 2 Well-controlled at home. Hgb A1C = 5.7. Pharmacy consulted for glycemic management. Stable VTE PROPHYLAXIS On heparin subQ DISPOSITION Plan to transfer to [facility] once medically stable Current Inpatient Medications: Current Inpatient Medications Medications (Trade) Dose Ordered Sig/Isaiah Route Start Time Stop Time Status Last Admin Dose Admin Acetaminophen (Tylenol Tab) 650 mg Q4H PRN PO 08/22/17 13:45 09/21/17 13:44 Insulin Aspart (novoLOG ASPART) SLIDING SCALE ACHS SC 08/22/17 21:00 09/21/17 20:59 08/29/17 12:48 1 UNITS Glucose (Glucose 40% Gel) 15-30 GRAMS 15 GRAMS... UD PRN PO 08/22/17 19:45 09/21/17 19:44 Glucose (Glucose Chew Tab) 4-8 Tablets 4 Tabl... UD PRN PO 08/22/17 19:45 09/21/17 19:44 Dextrose (Dextrose 50% 50ML Syringe) 25-50ML OF 50% DW IV FOR... UD PRN IV 08/22/17 19:45 09/21/17 19:44 Glucagon (Glucagon Inj) 1 mg UD PRN SQ 08/22/17 19:45 09/21/17 19:44 Morphine Sulfate (MoRPHine SULFATE INJ) 2 mg Q4H PRN IV 08/22/17 19:45 09/05/17 19:44 Al Hydroxide/Mg Hydroxide/ Lidocaine HCl/ Barcode Q8H PRN PO 08/22/17 20:15 09/21/17 20:14 Aspirin (Ecotrin Tab) 81 mg DAILY PO 08/23/17 09:00 09/22/17 08:59 08/29/17 08:16 81 MG Metoprolol Succinate (Toprol Xl Tab) 12.5 mg QAM PO 08/24/17 09:00 09/23/17 08:59 08/29/17 08:17 12.5 MG Insulin Glargine (Lantus Solostar Pen) 14 units HS SC 08/25/17 17:00 09/24/17 16:59 08/28/17 21:55 14 UNITS Heparin Sodium (Porcine) (Heparin Sq 5000 Unit/0.5ml) 5,000 unit Q12 SQ 08/24/17 21:00 09/23/17 20:59 08/29/17 08:24 5,000 UNIT Cholecalciferol (Vitamin D Tab) 1,000 inter.unit QAM PO 08/24/17 16:30 09/23/17 16:29 08/29/17 08:17 1,000 INTER.UNIT Calcitriol (Rocaltrol Cap) 0.25 mcg DAILY PO 08/24/17 16:30 09/23/17 16:29 08/29/17 08:16 0.25 MCG Zolpidem Tartrate (Ambien Tab) 5 mg HS PRN PO 08/26/17 11:30 09/25/17 11:29 08/28/17 21:52 5 MG Cefepime HCl (Consult) 1 ea UD PRN N/A 08/27/17 14:00 09/26/17 13:59 Cefepime HCl 2000 mg/Syringe 12.5 ml @ 5.5 mls/min DAILY@1200 IV 08/29/17 12:00 09/05/17 11:59 08/29/17 12:49 5.5 MLS/MIN Promethazine HCl 12.5 mg/Sodium Chloride 50.5 ml @ 204 mls/hr Q6H PRN IV 08/28/17 18:45 09/27/17 18:44
[2017-08-29 16:02] VITALS: BP 106/73; PULSE 79; TEMP 36.5; O2SAT 94
[2017-08-29] MEDS ORDERED: NURSING VERBAL MED ORDER ONE (16:15)
[2017-08-29] MEDS ORDERED: SENNA 8.6 MG TAB PO ONE (16:30)
[2017-08-29 20:29] VITALS: BP 99/63; PULSE 76; TEMP 36.7; O2SAT 97
[2017-08-29] MEDS: INSULIN GLARGINE SOLOSTAR 100 UNITS/ML 3 ML PEN SC SCH (21:11)
[2017-08-30] VITALS (7 sets, daily range): BP systolic 81–118; BP diastolic 55–76; PULSE 74–90; TEMP 36.3–36.7; O2SAT 94–100
[2017-08-30] MEDS: ZOLPIDEM TARTRATE 5 MG TAB PO PRN (01:11)
[2017-08-30 05:59] LABS: CALCIUM 8.6 mg/dl (8.5-10.1); CREATININE 2.44 mg/dl (0.60-1.40); POTASSIUM 4.6 mmol/L (3.5-5.1)
[2017-08-30] MEDS: METOPROLOL SUCC 25MG EXT REL TAB PO SCH (08:48)
[2017-08-30] MEDS: CALCITRIOL 0.25 MCG CAP PO SCH (08:48)
[2017-08-30] MEDS: ASPIRIN 81 MG ECTAB PO SCH (08:48)
[2017-08-30] MEDS: CHOLECALCIFEROL 1000 INTER.UNIT TAB PO SCH (08:48)
[2017-08-30] MEDS: HEPARIN SOD 5000 UNIT/0.5 ML CARP SQ SCH ×2 (08:51→22:21)
[2017-08-30] MEDS: INSULIN ASPART 100 UNITS/ML 3 ML PEN SC SCH ×4 (08:51→21:00)
[2017-08-30] MEDS: CEFEPIME IV 2,000 MG in SYRINGE 0 ML IV SCH (12:54)
--- NOTE | 2017-08-30 12:54 | Cardiology Follow-Up ---
Subjective General Date of Service: Aug 30, 2017. Chief Complaint: follow up shortness of breath Pt evaluation today including: conversation w/ patient, conversation w/ family , physical exam, chart review, lab review, review of studies, review of inpatient medication list History of Present Illness The patient is a 86 year old male seen in follow-up. No changes overnight. Daughter is present as bedside with a written list questions. Requesting referral to [facility] for outpatient cardiology evaluation. No sustained dysrhythmias on telemetry. 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 Review of Systems Respiratory: + cough, + dyspnea on exertion, No sputum, No wheezing, No shortness of breath, No dyspnea at rest, No hemoptysis Cardiac: No chest pain, No orthopnea, No PND, No edema, No claudication, No palpitations Physical Exam Vital Signs Last Vital Signs Documentation Date Time Temp Pulse Resp B/P (MAP) Pulse Ox O2 Delivery O2 Flow Rate FiO2 08/30/17 12:29 36.6 87 28 81/55 (64) 99 Nasal Cannula Physical Exam Constitutional: Level of Distress: acutely ill Head: normocephalic Neck: supple Lungs: Auscultation: no wheezing, no rhonchi, pertinent finding (decreased BS at the bases, left worse than right ) Cardiovascular: Heart Auscultation: RRR, pertinent finding (soft systolic ejection murmur) Extremities: no edema Neurologic: Gait & Station: pertinent finding (mental status appropriate, he follows commands ) Assessment and Plan Assessment and Plan Impression: 1. Acute decompensated systolic heart failure (EF < 25%) -s/p left thoracentesis 2/8 of 1 L of pleural fluid with interval symptomatic improvement and improvement of CXR -Clinical status unchanged, creatinine trending downward, diuretic therapy currently on hold 2. Underlying history of critical aortic valve stenosis 3. Acute kidney injury, on chronic kidney disease, creatinine , creatinine 2.55 mg/dl today compared to 2.39 yesterday, and 2.5 mg/dl 08/27/17. 4. 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 Repeat PA and lateral chest x-ray today to reassess left pleural effusion. Diuretic therapy currently on hold secondary to renal dysfunction and borderline hypotension, although, may consider low-dose diuretic therapy today pending review of chest x-ray. Repeat BMP in AM. Continue low-dose metoprolol succinate 12.5 mg daily. Not a candidate for ELLEN / ARB, Aldactone , digoxin, or Entresto given his renal insufficiency. I spent more than 30 minutes at the bedside today answering all questions to the satisfaction of both the patient and his daughter. They're requesting a outpatient referral to [facility] for consultation. I've contacted my office who place referral today. This will be arranged to patient's outpatient packaging clerk, Dr. Xiong. Patient already has a consultative appointment with Dr. Billingsley at [facility] on Monday. Laboratory Results Last 24 Hours Test 08/29/17 16:05 08/29/17 20:28 08/30/17 04:57 08/30/17 06:31 Bedside Glucose 218 mg/dl 188 mg/dl 91 mg/dl Sodium Level 136 mmol/L Potassium Level 4.6 mmol/L Chloride Level 106 mmol/L Carbon Dioxide Level 21 mmol/L Anion Gap 9.0 mmol/L Blood Urea Nitrogen 113 mg/dl Creatinine 2.44 mg/dl Est Creatinine Clear Calc Drug Dose 21.6 ml/min Estimated GFR () 26.4 Estimated GFR (Non- 22.8 BUN/Creatinine Ratio 46.5 Random Glucose 89 mg/dl Calcium Level 8.6 mg/dl
--- NOTE | 2017-08-30 13:03 | DIAGNOSTIC IMAGING REPORT ---
CHEST 2 VIEWS ROUTINE CLINICAL HISTORY: Pleural effusion. COMPARISON STUDY: Chest radiograph August 28, 2017. FINDINGS: A dual lead left subclavian pacemaker is unchanged in position. Moderate cardiomegaly is noted. There is no pneumothorax. Small bilateral pleural effusions have slightly increased in size since exam of August 28, 2017. Mild pulmonary edema has progressed. IMPRESSION: 1. Slight increase in small bilateral pleural effusions. 2. Interval progression of mild pulmonary edema. Electronically signed by: Mariano Gracia M.D. 08/30/2017 1:01 PM Dictated Date/Time: 08/30/2017 12:58 PM
--- NOTE | 2017-08-30 17:48 | SURGERY PROGRESS NOTE ---
DATE: 08/30/2017 Mr. Segura was seen today on 08/30/2017. Mr. Segura is still on room air. He does not feel good. I reviewed his x-ray and he is reaccumulating this left pleural effusion. It is still rather small, but definitely worse. We will continue to follow along, although I would be loathe to place an indwelling catheter as he draining his pleural effusion really would not help much clinically. LAZARO
--- NOTE | 2017-08-30 18:33 | Progress Note ---
Medicine Progress Note Date & Time of Visit: Aug 30, 2017 at 14:27. Subjective Pt was seen and examined Lying in bed with no distress Feels weak Denies any chest pain, palpitation and SOB Objective Last 8 Hrs Date Time Temp Pulse Resp B/P (MAP) Pulse Ox O2 Delivery O2 Flow Rate FiO2 08/30/17 16:00 Room Air 08/30/17 15:13 36.5 74 20 105/64 (78) 98 Room Air 08/30/17 14:02 88 99 08/30/17 12:29 36.6 87 28 81/55 (64) 99 Nasal Cannula 08/30/17 12:24 36.6 90 28 118/76 (90) 100 Room Air 08/30/17 12:00 Room Air Physical Exam: General- No acute distress Head- atraumatic Eyes- PERRL, EOMI ENT- oropharynx clear Neck- supple Lungs- Decrease BS Heart- regular rhythm, +systolic murmur Abdomen- normal bowel sounds, soft Extremities- no calf tenderness Neuro- alert, oriented x 3; PERRL, EOMI Skin- warm & dry Laboratory Results: Last 24 Hours Test 08/29/17 20:28 08/30/17 04:57 08/30/17 06:31 08/30/17 13:00 Bedside Glucose 188 mg/dl 91 mg/dl 126 mg/dl Sodium Level 136 mmol/L Potassium Level 4.6 mmol/L Chloride Level 106 mmol/L Carbon Dioxide Level 21 mmol/L Anion Gap 9.0 mmol/L Blood Urea Nitrogen 113 mg/dl Creatinine 2.44 mg/dl Est Creatinine Clear Calc Drug Dose 21.6 ml/min Estimated GFR () 26.4 Estimated GFR (Non- 22.8 BUN/Creatinine Ratio 46.5 Random Glucose 89 mg/dl Calcium Level 8.6 mg/dl Test 08/30/17 16:23 Bedside Glucose 185 mg/dl Assessment & Plan ACUTE DECOMPENSATED SYSTOLIC CHF CXR on admission showed Congestive heart failure with Small left effusion. Elevated BNP on admission. Echo showed LVEF < 25%. Received diuresis, showed improvement Furosemide has been on hold due to elevated creatinine. Continue holding ACEI, ARB, or spironolactone due to renal failure Cardiology on board recommended to continue holding diuresis and ACEI Further management per Cardiology. Stable ELEVATED CARDIAC MARKERS Possible Non-STEMI Was on IV heparin. Continue aspirin, metoprolol, ECHO showed Abnormal septal wall motion is present consistent with right ventricular pacing. There is diffuse left ventricular hypokinesis to akinesis with akinesis of the apical segments. Stable AORTIC STENOSIS Echo showed aortic valve is severely calcified with severe restriction of the cusps. Seems to be inoperable at present as per cardio Consult placed for [facility] valve clinic consultation requested post discharge. Daughter would like a referral to [facility] Further management per Cardiology. COUGH / HEMOPTYSIS influenza negative. CXR showed no infiltrates Sputum cx positive for Pseudomonas. Continue Cefepime. PLEURAL EFFUSION S/P Left thoracentesis performed by Thoracic Surgery. CXR today showed slight increase in small bilateral pleural effusions. Transudate. Cytology negative Thoracic surgery on board CHRONIC KIDNEY DISEASE III / ACUTE KIDNEY INJURY Creatine on admission 2.14, baseline creatinine around 1.5. Creatine increased to 2.4 today Continue avoid nephrotoxic agents nephrology on board Lasix has been on hold Continue monitor BMP DM TYPE 2 Well-controlled at home. Hgb A1C = 5.7. Pharmacy consulted for glycemic management. Stable VTE PROPHYLAXIS On heparin subQ DISPOSITION Plan to transfer to [facility] once medically stable Current Inpatient Medications: Current Inpatient Medications Medications (Trade) Dose Ordered Sig/Isaiah Route Start Time Stop Time Status Last Admin Dose Admin Acetaminophen (Tylenol Tab) 650 mg Q4H PRN PO 08/22/17 13:45 09/21/17 13:44 Insulin Aspart (novoLOG ASPART) SLIDING SCALE ACHS SC 08/22/17 21:00 09/21/17 20:59 08/30/17 16:57 8 UNITS Glucose (Glucose 40% Gel) 15-30 GRAMS 15 GRAMS... UD PRN PO 08/22/17 19:45 09/21/17 19:44 Glucose (Glucose Chew Tab) 4-8 Tablets 4 Tabl... UD PRN PO 08/22/17 19:45 09/21/17 19:44 Dextrose (Dextrose 50% 50ML Syringe) 25-50ML OF 50% DW IV FOR... UD PRN IV 08/22/17 19:45 09/21/17 19:44 Glucagon (Glucagon Inj) 1 mg UD PRN SQ 08/22/17 19:45 09/21/17 19:44 Morphine Sulfate (MoRPHine SULFATE INJ) 2 mg Q4H PRN IV 08/22/17 19:45 09/05/17 19:44 Al Hydroxide/Mg Hydroxide/ Lidocaine HCl/ Barcode Q8H PRN PO 08/22/17 20:15 09/21/17 20:14 Aspirin (Ecotrin Tab) 81 mg DAILY PO 08/23/17 09:00 09/22/17 08:59 08/30/17 08:48 81 MG Metoprolol Succinate (Toprol Xl Tab) 12.5 mg QAM PO 08/24/17 09:00 09/23/17 08:59 08/30/17 08:48 12.5 MG Insulin Glargine (Lantus Solostar Pen) 14 units HS SC 08/25/17 17:00 09/24/17 16:59 08/29/17 21:11 14 UNITS Heparin Sodium (Porcine) (Heparin Sq 5000 Unit/0.5ml) 5,000 unit Q12 SQ 08/24/17 21:00 09/23/17 20:59 08/30/17 08:51 5,000 UNIT Cholecalciferol (Vitamin D Tab) 1,000 inter.unit QAM PO 08/24/17 16:30 09/23/17 16:29 08/30/17 08:48 1,000 INTER.UNIT Calcitriol (Rocaltrol Cap) 0.25 mcg DAILY PO 08/24/17 16:30 09/23/17 16:29 08/30/17 08:48 0.25 MCG Zolpidem Tartrate (Ambien Tab) 5 mg HS PRN PO 08/26/17 11:30 09/25/17 11:29 08/30/17 01:11 5 MG Cefepime HCl (Consult) 1 ea UD PRN N/A 08/27/17 14:00 09/26/17 13:59 Cefepime HCl 2000 mg/Syringe 12.5 ml @ 5.5 mls/min DAILY@1200 IV 08/29/17 12:00 09/05/17 11:59 08/30/17 12:54 5.5 MLS/MIN Promethazine HCl 12.5 mg/Sodium Chloride 50.5 ml @ 204 mls/hr Q6H PRN IV 08/28/17 18:45 09/27/17 18:44 08/30/17 01:06 204 MLS/HR
[2017-08-30] MEDS ORDERED: POLYETHYLENE (MIRALAX) 17 GM PACK PO ONE (20:43)
[2017-08-30] MEDS ORDERED: DOCUSATE SODIUM 100 MG CAP PO ONE (20:43)
[2017-08-30] MEDS ORDERED: POLYETHYLENE (MIRALAX) 17 GM PACK PO PRN (20:45)
--- NOTE | 2017-08-30 21:46 | DIAGNOSTIC IMAGING REPORT ---
ABD/PELVIS NO IV OR ORAL CONT CT DOSE: 355.61 mGy.cm HISTORY: Pain abd pain TECHNIQUE: Multiaxial CT images of the abdomen and pelvis were performed without contrast. A dose lowering technique was utilized adhering to the principles of ALARA. COMPARISON STUDY: 08/25/2014 FINDINGS: Interval development of bilateral pleural effusions. Basilar pulmonary nodularity procedure described is unchanged. Configuration of liver spleen and pancreas are unremarkable. Slight nonspecific right perihepatic infiltrative change as well as slight infiltrative change in the paracolic gutter regions. Mild generalized nonobstructive ileus. Several foci of acoustical pneumatosis coli primarily near the splenic flexure as well as descending colonic regions. No evidence for free air. No significant small bowel distention. Kidneys negative for calcification or hydronephrosis. There is a left renal parapelvic cyst. Stable left adrenal nodule. Normal appendix. IMPRESSION: 1. Interval development of bilateral pleural effusions. 2. Stable basilar pulmonary nodularity. 3. Scattered colonic diverticulosis with potential early developing colonic pneumatosis coli. 4. No evidence for free air or obstructive change. 5. Mild generalized nonobstructive ileus. The above report was generated using voice recognition software. It may contain grammatical, syntax or spelling errors. Electronically signed by: Patrick Aquino M.D. 08/30/2017 9:44 PM Dictated Date/Time: 08/30/2017 9:39 PM
[2017-08-30] MEDS: INSULIN GLARGINE SOLOSTAR 100 UNITS/ML 3 ML PEN SC SCH (22:20)
[2017-08-30 22:46] LABS: ALBUMIN 2.9 gm/dl (3.4-5.0); CALCIUM 8.8 mg/dl (8.5-10.1); CREATININE 2.27 mg/dl (0.60-1.40); POTASSIUM 4.8 mmol/L (3.5-5.1)
[2017-08-30 22:49] LABS: TOTAL PROTEIN 6.4 gm/dl (6.4-8.2)
[2017-08-31] VITALS (7 sets, daily range): BP systolic 92–109; BP diastolic 60–82; PULSE 67–90; TEMP 36.2–36.5; O2SAT 93–99
[2017-08-31] MEDS ORDERED: DOCUSATE SODIUM/SENNA 50/8.6MG TAB PO ONE (06:15)
[2017-08-31] MEDS ORDERED: LACTULOSE SYRUP 30 GM/45 ML UDP PO ONE (06:15)
[2017-08-31 06:49] LABS: CALCIUM 8.7 mg/dl (8.5-10.1); CREATININE 2.21 mg/dl (0.60-1.40); POTASSIUM 4.9 mmol/L (3.5-5.1)
[2017-08-31] MEDS: METOPROLOL SUCC 25MG EXT REL TAB PO SCH (07:51)
[2017-08-31] MEDS: CALCITRIOL 0.25 MCG CAP PO SCH (07:51)
[2017-08-31] MEDS: ASPIRIN 81 MG ECTAB PO SCH (07:51)
[2017-08-31] MEDS: CHOLECALCIFEROL 1000 INTER.UNIT TAB PO SCH (07:51)
[2017-08-31] MEDS: INSULIN ASPART 100 UNITS/ML 3 ML PEN SC SCH ×4 (07:54→21:15)
[2017-08-31] MEDS: HEPARIN SOD 5000 UNIT/0.5 ML CARP SQ SCH ×2 (07:58→20:23)
[2017-08-31] MEDS ORDERED: DOCUSATE SODIUM 100 MG CAP PO SCH (09:00)
[2017-08-31] MEDS: CEFEPIME IV 2,000 MG in SYRINGE 0 ML IV SCH (11:52)
[2017-08-31] MEDS ORDERED: FUROSEMIDE 20 MG TAB PO ONE (14:30)
--- NOTE | 2017-08-31 14:36 | PROGRESS NOTE ---
DATE: 08/31/2017 CARDIOLOGY CONSULTATION FOLLOWUP NOTE The patient seen and examined. Chart, medications, laboratory studies reviewed. SUBJECTIVE: The patient feels more comfortable than on initial admission. Does become breathless with minimal activity. Has had some constipation and bowel issues but notes no melena or hematochezia. He did have some mild bloating last evening with CAT scan unrevealing. Blood pressures have trended slightly higher today above hypotensive status. O2 saturations have been good on room air, though with the patient poorly tolerant of minimal activity. OBJECTIVE: VITAL SIGNS: Heart rate is 76, blood pressure is 107/69. HEENT: Normocephalic, atraumatic. NECK: Thin. There is no distinct jugular venous distention. LUNGS: Reveal diminished breath sounds. No rhonchi or wheeze. CARDIOVASCULAR: Regular with a grade 1-2/6 systolic murmur. There is marked carotid delay. ABDOMEN: Soft. EXTREMITIES: Without edema. LABORATORY AND IMAGING DATA: Today, sodium is 137, potassium is 4.9, chloride is 108, bicarbonate is 21, BUN is 106, creatinine is 2.2, and glucose is 110. Albumin level yesterday was 2.9. Chest x-ray yesterday revealed bilateral pleural effusions, mild increase in interstitial markings. IMPRESSION: An 86-year-old male presented this admission with acute on chronic decompensated systolic heart failure secondary to severe valvular disease, severe aortic stenosis, underlying ischemic heart disease, not excluded. The patient has improved since admission, though remains minimally tolerant of any activity including motion in bed in room. RECOMMENDATIONS: Will resume oral diuretic at 20 mg of furosemide today and daily. The patient anticipates follow up with valve clinic at [facility] and possibly [facility] for consideration of transcutaneous aortic valve implantation. The patient is continuing to consider whether he would agree to such process. Discussed findings in detail with decompensated heart failure in the setting of critical aortic stenosis and declining LV function. Overall, suggested poor prognosis. He and his daughter will discuss further. Medical release form obtained from [facility] to aid in forwarding additional information to the [facility] as necessary. MTDD
--- NOTE | 2017-08-31 16:09 | Progress Note ---
Progress Note Date of Service Aug 31, 2017. Progress Note The patient was seen today. He feels very weak. He is not really complaining of shortness of breath. A CT scan of his abdomen and pelvis was obtained and he does have bilateral homogenous effusions. They are moderate in size. I discussed this case with Dr. Mann. I would prefer not to place an indwelling pleural catheter in to this patient as he is still on room air and he really did not have a marked clinical response to draining a large amount of fluid from his left pleural cavity. I will follow him up in the office in the next week or 2 with a chest x-ray and we could reconsider.
--- NOTE | 2017-08-31 18:21 | Progress Note ---
Medicine Progress Note Date & Time of Visit: Aug 31, 2017 at 12:14. Subjective Pt was seen and examined Lying in bed with no distress Pt said that he feels weak He denies any chest pain, palpitation and SOB Objective Last 8 Hrs Date Time Temp Pulse Resp B/P (MAP) Pulse Ox O2 Delivery O2 Flow Rate FiO2 08/31/17 16:57 36.2 90 22 95/63 (74) 97 Room Air 08/31/17 16:00 Room Air 08/31/17 12:15 36.3 74 16 105/66 (79) 97 Room Air 08/31/17 12:00 Room Air Physical Exam: General- No acute distress Head- atraumatic Eyes- PERRL, EOMI ENT- oropharynx clear Neck- supple Lungs- Decrease BS Heart- regular rhythm, +systolic murmur Abdomen- normal bowel sounds, soft Extremities- no calf tenderness Neuro- alert, oriented x 3; PERRL, EOMI Skin- warm & dry Laboratory Results: Last 24 Hours Test 08/30/17 20:32 08/30/17 22:13 08/31/17 05:59 08/31/17 06:30 Bedside Glucose 100 mg/dl 110 mg/dl Sodium Level 137 mmol/L 137 mmol/L Potassium Level 4.8 mmol/L 4.9 mmol/L Chloride Level 108 mmol/L 108 mmol/L Carbon Dioxide Level 18 mmol/L 21 mmol/L Anion Gap 11.0 mmol/L 9.0 mmol/L Blood Urea Nitrogen 112 mg/dl 106 mg/dl Creatinine 2.27 mg/dl 2.21 mg/dl Est Creatinine Clear Calc Drug Dose 23.2 ml/min 23.9 ml/min Estimated GFR () 28.8 29.7 Estimated GFR (Non- 24.8 25.6 BUN/Creatinine Ratio 49.3 48.0 Random Glucose 89 mg/dl 102 mg/dl Calcium Level 8.8 mg/dl 8.7 mg/dl Total Bilirubin 0.3 mg/dl Aspartate Amino Transf (AST/SGOT) 17 U/L Alanine Aminotransferase (ALT/SGPT) 57 U/L Alkaline Phosphatase 124 U/L Total Protein 6.4 gm/dl Albumin 2.9 gm/dl Globulin 3.5 gm/dl Albumin/Globulin Ratio 0.8 Lipase 356 U/L Test 08/31/17 11:10 Bedside Glucose 152 mg/dl Assessment & Plan ACUTE DECOMPENSATED SYSTOLIC CHF CXR on admission showed Congestive heart failure with Small left effusion. Elevated BNP on admission. Echo showed LVEF < 25%. Received diuresis, showed improvement Furosemide has been on hold due to elevated creatinine. Continue holding ACEI, ARB, or spironolactone due to renal failure Lasix 20mg PO given today as per cardio Continue holding ACEI Monitor BMP in am Further management per Cardiology. Stable ELEVATED CARDIAC MARKERS Possible Non-STEMI Was on IV heparin. Continue aspirin, metoprolol, ECHO showed Abnormal septal wall motion is present consistent with right ventricular pacing. There is diffuse left ventricular hypokinesis to akinesis with akinesis of the apical segments. Stable AORTIC STENOSIS Echo showed aortic valve is severely calcified with severe restriction of the cusps. Seems to be inoperable at present as per cardio Consult placed for [facility] valve clinic consultation requested post discharge. Daughter would like a referral to [facility] Further management per Cardiology. GENERALIZED WEAKNESS Continue PT/OT Fall precaution COUGH / HEMOPTYSIS influenza negative. CXR showed no infiltrates Sputum cx positive for Pseudomonas. Continue Cefepime. PLEURAL EFFUSION S/P Left thoracentesis performed by Thoracic Surgery. CXR today showed slight increase in small bilateral pleural effusions. Transudate. Cytology negative Thoracic surgery on board Discussed case with Dr. Trujillo recommended outpatient follow between 1 to week with a repeat cxr No plan to place an indwelling pleural catheter at this time since pt Saturates well on RA May reconsider if effusion worsening or becomes hypoxia CHRONIC KIDNEY DISEASE III / ACUTE KIDNEY INJURY Creatine on admission 2.14, baseline creatinine around 1.5. Creatine increased to 2.2 today Continue avoid nephrotoxic agents nephrology on board Lasix 20mg x1 given Continue monitor BMP DM TYPE 2 Well-controlled at home. Hgb A1C = 5.7. Pharmacy consulted for glycemic management. Stable VTE PROPHYLAXIS On heparin subQ DISPOSITION Waiting for approval to discharge to [facility] Current Inpatient Medications: Current Inpatient Medications Medications (Trade) Dose Ordered Sig/Isaiah Route Start Time Stop Time Status Last Admin Dose Admin Acetaminophen (Tylenol Tab) 650 mg Q4H PRN PO 08/22/17 13:45 09/21/17 13:44 Insulin Aspart (novoLOG ASPART) SLIDING SCALE ACHS SC 08/22/17 21:00 09/21/17 20:59 08/31/17 11:51 5 UNITS Glucose (Glucose 40% Gel) 15-30 GRAMS 15 GRAMS... UD PRN PO 08/22/17 19:45 09/21/17 19:44 Glucose (Glucose Chew Tab) 4-8 Tablets 4 Tabl... UD PRN PO 08/22/17 19:45 09/21/17 19:44 Dextrose (Dextrose 50% 50ML Syringe) 25-50ML OF 50% DW IV FOR... UD PRN IV 08/22/17 19:45 09/21/17 19:44 Glucagon (Glucagon Inj) 1 mg UD PRN SQ 08/22/17 19:45 09/21/17 19:44 Morphine Sulfate (MoRPHine SULFATE INJ) 2 mg Q4H PRN IV 08/22/17 19:45 09/05/17 19:44 Al Hydroxide/Mg Hydroxide/ Lidocaine HCl/ Barcode Q8H PRN PO 08/22/17 20:15 09/21/17 20:14 Aspirin (Ecotrin Tab) 81 mg DAILY PO 08/23/17 09:00 09/22/17 08:59 08/31/17 07:51 81 MG Metoprolol Succinate (Toprol Xl Tab) 12.5 mg QAM PO 08/24/17 09:00 09/23/17 08:59 08/31/17 07:51 12.5 MG Insulin Glargine (Lantus Solostar Pen) 14 units HS SC 08/25/17 17:00 09/24/17 16:59 08/30/17 22:20 14 UNITS Heparin Sodium (Porcine) (Heparin Sq 5000 Unit/0.5ml) 5,000 unit Q12 SQ 08/24/17 21:00 09/23/17 20:59 08/31/17 07:58 5,000 UNIT Cholecalciferol (Vitamin D Tab) 1,000 inter.unit QAM PO 08/24/17 16:30 09/23/17 16:29 08/31/17 07:51 1,000 INTER.UNIT Calcitriol (Rocaltrol Cap) 0.25 mcg DAILY PO 08/24/17 16:30 09/23/17 16:29 08/31/17 07:51 0.25 MCG Zolpidem Tartrate (Ambien Tab) 5 mg HS PRN PO 08/26/17 11:30 09/25/17 11:29 08/30/17 01:11 5 MG Cefepime HCl (Consult) 1 ea UD PRN N/A 08/27/17 14:00 09/26/17 13:59 Cefepime HCl 2000 mg/Syringe 12.5 ml @ 5.5 mls/min DAILY@1200 IV 08/29/17 12:00 09/05/17 11:59 08/31/17 11:52 5.5 MLS/MIN Promethazine HCl 12.5 mg/Sodium Chloride 50.5 ml @ 204 mls/hr Q6H PRN IV 08/28/17 18:45 09/27/17 18:44 08/30/17 01:06 204 MLS/HR Polyethylene (Miralax Powder Packet) 17 gm DAILY PRN PO 08/30/17 20:45 09/29/17 20:44 Senna/Docusate Sodium (Senokot S Tab) 1 tab QAM PO 09/01/17 09:00 10/01/17 08:59 Furosemide (Lasix Tab) 20 mg QAM PO 09/01/17 09:00 10/01/17 08:59
[2017-08-31] MEDS: INSULIN GLARGINE SOLOSTAR 100 UNITS/ML 3 ML PEN SC SCH (21:16)
[2017-09-01] VITALS (7 sets, daily range): BP systolic 101–119; BP diastolic 68–75; PULSE 74–85; TEMP 36.3–36.5; O2SAT 92–99
[2017-09-01 06:44] LABS: CALCIUM 8.9 mg/dl (8.5-10.1); CREATININE 2.35 mg/dl (0.60-1.40)
[2017-09-01] MEDS: INSULIN ASPART 100 UNITS/ML 3 ML PEN SC SCH ×4 (08:54→20:56)
[2017-09-01] MEDS: ASPIRIN 81 MG ECTAB PO SCH (08:57)
[2017-09-01] MEDS: CALCITRIOL 0.25 MCG CAP PO SCH (08:57)
[2017-09-01] MEDS: CHOLECALCIFEROL 1000 INTER.UNIT TAB PO SCH (08:58)
[2017-09-01] MEDS: DOCUSATE SODIUM/SENNA 50/8.6MG TAB PO SCH (08:58)
[2017-09-01] MEDS: METOPROLOL SUCC 25MG EXT REL TAB PO SCH (08:59)
[2017-09-01] MEDS ORDERED: FUROSEMIDE 20 MG TAB PO SCH (09:00)
[2017-09-01] MEDS: HEPARIN SOD 5000 UNIT/0.5 ML CARP SQ SCH ×2 (09:08→20:58)
[2017-09-01] MEDS: CEFEPIME IV 2,000 MG in SYRINGE 0 ML IV SCH (12:36)
[2017-09-01] MEDS ORDERED: FUROSEMIDE 20 MG TAB PO ONE (12:45)
--- NOTE | 2017-09-01 12:48 | Progress Note ---
Medicine Progress Note Date & Time of Visit: Sep 01, 2017 at 12:36. Subjective Pt was seen and examined Lying in bed with no respiratory distress Look confused today Daughter at bedside and was updated Pt said that he feels weak Denies any chest pain, palpitation and sob Objective Last 8 Hrs Date Time Temp Pulse Resp B/P (MAP) Pulse Ox O2 Delivery O2 Flow Rate FiO2 09/01/17 11:59 36.3 77 19 108/71 (83) 95 09/01/17 08:00 Room Air 09/01/17 07:33 36.3 85 16 113/73 (86) 92 Room Air Physical Exam: General- No acute distress Head- atraumatic Eyes- PERRL, EOMI ENT- oropharynx clear Neck- supple Lungs- Decrease BS Heart- regular rhythm, +systolic murmur Abdomen- normal bowel sounds, soft Extremities- no calf tenderness Neuro- alert, but confused Skin- warm & dry Laboratory Results: Last 24 Hours Test 08/31/17 16:13 08/31/17 20:42 09/01/17 05:56 09/01/17 07:02 Bedside Glucose 128 mg/dl 157 mg/dl 179 mg/dl Sodium Level 136 mmol/L Potassium Level 5.0 mmol/L Chloride Level 108 mmol/L Carbon Dioxide Level 18 mmol/L Anion Gap 11.0 mmol/L Blood Urea Nitrogen 107 mg/dl Creatinine 2.35 mg/dl Est Creatinine Clear Calc Drug Dose 22.4 ml/min Estimated GFR () 27.6 Estimated GFR (Non- 23.8 BUN/Creatinine Ratio 45.3 Random Glucose 163 mg/dl Calcium Level 8.9 mg/dl Test 09/01/17 11:08 Bedside Glucose 204 mg/dl Assessment & Plan ACUTE DECOMPENSATED SYSTOLIC CHF CXR on admission showed Congestive heart failure with Small left effusion. Elevated BNP on admission. Echo showed LVEF < 25%. Received diuresis, showed improvement Furosemide has been on hold due to elevated creatinine. Continue holding ACEI, ARB, or spironolactone due to renal failure Lasix 20mg PO given today as per cardio Continue holding ACEI Monitor BMP in am Further management per Cardiology. Stable 09/01 Saturated well on RA Lasix was given yesterday Creatine 2.3 today Case discussed with Dr. Renner cardiology recommended to give lasix 20mg today Continue monitor BMP ELEVATED CARDIAC MARKERS Possible Non-STEMI Was on IV heparin. Continue aspirin, metoprolol, ECHO showed Abnormal septal wall motion is present consistent with right ventricular pacing. There is diffuse left ventricular hypokinesis to akinesis with akinesis of the apical segments. Stable AORTIC STENOSIS Echo showed aortic valve is severely calcified with severe restriction of the cusps. Seems to be inoperable at present as per cardio Consult placed for [facility] valve clinic consultation requested post discharge. Daughter would like a referral to [facility] Has a follow up with cardiology on Monday [place] Further management per Cardiology. GENERALIZED WEAKNESS Continue PT/OT Fall precaution COUGH / HEMOPTYSIS influenza negative. CXR showed no infiltrates Sputum cx positive for Pseudomonas. Continue Cefepime. PLEURAL EFFUSION S/P Left thoracentesis performed by Thoracic Surgery. CXR today showed slight increase in small bilateral pleural effusions. Transudate. Cytology negative Thoracic surgery on board Discussed case with Dr. Trujillo recommended outpatient follow between 1 to week with a repeat cxr No plan to place an indwelling pleural catheter at this time since pt Saturates well on RA May reconsider if effusion worsening or becomes hypoxia CHRONIC KIDNEY DISEASE III / ACUTE KIDNEY INJURY Creatine on admission 2.14, baseline creatinine around 1.5. Creatine increased to 2.3 today Continue avoid nephrotoxic agents nephrology on board Will give Lasix 20mg x1 today Continue monitor BMP DM TYPE 2 Well-controlled at home. Hgb A1C = 5.7. Pharmacy consulted for glycemic management. Stable VTE PROPHYLAXIS On heparin subQ DISPOSITION Waiting for approval to discharge to [facility] Current Inpatient Medications: Current Inpatient Medications Medications (Trade) Dose Ordered Sig/Isaiah Route Start Time Stop Time Status Last Admin Dose Admin Acetaminophen (Tylenol Tab) 650 mg Q4H PRN PO 08/22/17 13:45 09/21/17 13:44 08/31/17 22:16 650 MG Insulin Aspart (novoLOG ASPART) SLIDING SCALE ACHS SC 08/22/17 21:00 09/21/17 20:59 09/01/17 08:54 4 UNITS Glucose (Glucose 40% Gel) 15-30 GRAMS 15 GRAMS... UD PRN PO 08/22/17 19:45 09/21/17 19:44 Glucose (Glucose Chew Tab) 4-8 Tablets 4 Tabl... UD PRN PO 08/22/17 19:45 09/21/17 19:44 Dextrose (Dextrose 50% 50ML Syringe) 25-50ML OF 50% DW IV FOR... UD PRN IV 08/22/17 19:45 09/21/17 19:44 Glucagon (Glucagon Inj) 1 mg UD PRN SQ 08/22/17 19:45 09/21/17 19:44 Morphine Sulfate (MoRPHine SULFATE INJ) 2 mg Q4H PRN IV 08/22/17 19:45 09/05/17 19:44 Al Hydroxide/Mg Hydroxide/ Lidocaine HCl/ Barcode Q8H PRN PO 08/22/17 20:15 09/21/17 20:14 Aspirin (Ecotrin Tab) 81 mg DAILY PO 08/23/17 09:00 09/22/17 08:59 09/01/17 08:57 81 MG Metoprolol Succinate (Toprol Xl Tab) 12.5 mg QAM PO 08/24/17 09:00 09/23/17 08:59 09/01/17 08:59 12.5 MG Insulin Glargine (Lantus Solostar Pen) 14 units HS SC 08/25/17 17:00 09/24/17 16:59 08/31/17 21:16 14 UNITS Heparin Sodium (Porcine) (Heparin Sq 5000 Unit/0.5ml) 5,000 unit Q12 SQ 08/24/17 21:00 09/23/17 20:59 09/01/17 09:08 5,000 UNIT Cholecalciferol (Vitamin D Tab) 1,000 inter.unit QAM PO 08/24/17 16:30 09/23/17 16:29 09/01/17 08:58 1,000 INTER.UNIT Calcitriol (Rocaltrol Cap) 0.25 mcg DAILY PO 08/24/17 16:30 09/23/17 16:29 09/01/17 08:57 0.25 MCG Zolpidem Tartrate (Ambien Tab) 5 mg HS PRN PO 08/26/17 11:30 09/25/17 11:29 08/30/17 01:11 5 MG Cefepime HCl (Consult) 1 ea UD PRN N/A 08/27/17 14:00 09/26/17 13:59 Cefepime HCl 2000 mg/Syringe 12.5 ml @ 5.5 mls/min DAILY@1200 IV 08/29/17 12:00 09/05/17 11:59 08/31/17 11:52 5.5 MLS/MIN Promethazine HCl 12.5 mg/Sodium Chloride 50.5 ml @ 204 mls/hr Q6H PRN IV 08/28/17 18:45 09/27/17 18:44 08/30/17 01:06 204 MLS/HR Polyethylene (Miralax Powder Packet) 17 gm DAILY PRN PO 08/30/17 20:45 09/29/17 20:44 Senna/Docusate Sodium (Senokot S Tab) 1 tab QAM PO 09/01/17 09:00 10/01/17 08:59 09/01/17 08:58 1 TAB Furosemide (Lasix Tab) 20 mg QAM PO 09/01/17 09:00 10/01/17 08:59 09/01/17 08:57 20 MG
--- NOTE | 2017-09-01 15:56 | PROGRESS NOTE ---
DATE: 09/01/2017 CARDIOLOGY CONSULTATION FOLLOWUP NOTE SUBJECTIVE: The patient this morning appears slightly confused, though less vigorous in the past 1-2 days, though notes no specific complaints. OBJECTIVE: VITAL SIGNS: Heart rate is 77, blood pressure is 108/71, O2 saturations 95% on room air. NECK: Thin. LUNGS: Reveal diminished breath sounds, bibasilar. CARDIOVASCULAR: Regular with a grade 1/6 systolic murmur. There is no diastolic murmur. ABDOMEN: Soft. EXTREMITIES: Without significant edema. LABORATORY STUDIES: Sodium is 136, potassium is 5.0, chloride is 108, bicarbonate is 18, BUN is 107, and creatinine is 2.35. Weight is 73.9 kilograms. 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 Overall, patient continues to demonstrate evidence of gradual decline though without acute issue. We will place on nocturnal oximetry to assess need for O2 supplementation chronically. Anticipation has made for evaluation for a valve clinic. Patient fraility issues are rapidly increasing, worsening renal insufficiency, mildly diminished mentation. Overall, prognosis remains very limited. This has been discussed in detail with daughter. LAZARO
[2017-09-01] MEDS: INSULIN GLARGINE SOLOSTAR 100 UNITS/ML 3 ML PEN SC SCH (20:57)
[2017-09-02 03:30] VITALS: BP 101/62; PULSE 76; TEMP 36.4; O2SAT 98
[2017-09-02 04:00] VITALS: O2SAT 98
[2017-09-02 07:51] LABS: CALCIUM 8.9 mg/dl (8.5-10.1); CREATININE 2.71 mg/dl (0.60-1.40); POTASSIUM 4.9 mmol/L (3.5-5.1)
[2017-09-02 08:09] VITALS: BP 108/71; PULSE 85; TEMP 36.3; O2SAT 96
[2017-09-02] MEDS: ASPIRIN 81 MG ECTAB PO SCH (08:25)
[2017-09-02] MEDS: DOCUSATE SODIUM/SENNA 50/8.6MG TAB PO SCH (08:26)
[2017-09-02] MEDS: CALCITRIOL 0.25 MCG CAP PO SCH (08:26)
[2017-09-02] MEDS: METOPROLOL SUCC 25MG EXT REL TAB PO SCH (08:26)
[2017-09-02] MEDS: CHOLECALCIFEROL 1000 INTER.UNIT TAB PO SCH (08:26)
[2017-09-02] MEDS: INSULIN ASPART 100 UNITS/ML 3 ML PEN SC SCH ×4 (08:29→21:33)
[2017-09-02] MEDS: HEPARIN SOD 5000 UNIT/0.5 ML CARP SQ SCH ×2 (08:29→21:29)
[2017-09-02 10:58] VITALS: BP 111/75; PULSE 73; TEMP 36.3; O2SAT 97
--- NOTE | 2017-09-02 11:43 | CARDIOLOGY PROGRESS NOTE ---
DATE: 09/02/2017 CARDIOLOGY CONSULTATION AND FOLLOWUP NOTE The patient seen and examined. Chart, medications, telemetry reviewed. SUBJECTIVE: Heart rate is 85, blood pressure is 108/71, O2 saturations 96% on room air. SUBJECTIVE: The patient is intermittently confused with mild delirium. Notes no chest pains. Notes no worsening shortness of breath. Notes no fevers, chills or productive cough. OBJECTIVE: VITAL SIGNS: Heart rate is 85, blood pressure is 108/71. NECK: Thin. There is no distinct jugular venous distention. LUNGS: Reveal mildly diminished breath sounds at the bases. CARDIOVASCULAR: Regular, grade 2/6 systolic murmur. Distant heart sounds. ABDOMEN: Soft. EXTREMITIES: Without significant edema. NEUROLOGIC: The patient is alert, but easily gets distracted and disoriented to place. LABORATORY STUDIES: Sodium is 137, potassium is 4.9, chloride is 106, bicarbonate is 19, BUN is 118, creatinine is 2.7. Nocturnal oximetry reveals intermittent desaturation. 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 Treatment has resulted in worsening renal insufficiency and uremia. PLAN: We will continue to hold diuretics today. Given increasing BUN and decreasing mentation, nocturnal oxygen supplementation will be recommended. Overall, prognosis is extremely limited. Ultimate plans per patient's daughter will be assessment from aortic valve clinic at [facility] or [place] to assess the feasibility of transcutaneous aortic valve implantation. Underlying risk factors suggest the presence not only of valvular disease, but ischemic heart disease in the setting of multiple risk factors including renal insufficiency, the patient's heart risk and relatively poor prognosis. CHADD
--- NOTE | 2017-09-02 12:07 | Progress Note ---
Progress Note Date of Service Sep 02, 2017. Progress Note The patient was seen today at the bedside. He is very weak. Sitting up in a chair for 10-15 minutes "wears him out ". He has decreased breath sounds in both bases. We are going to check a chest x-ray tomorrow. His prognosis is quite poor.
[2017-09-02] MEDS: CEFEPIME IV 2,000 MG in SYRINGE 0 ML IV SCH (13:06)
[2017-09-02 15:53] VITALS: BP 93/52; PULSE 79; TEMP 36.3; O2SAT 99
--- NOTE | 2017-09-02 17:50 | Progress Note ---
Medicine Progress Note Date & Time of Visit: Sep 02, 2017 at 17:45. Subjective Pt was seen and examined Lying in bed with no distress with daughter at bedside Pt seems more awake this morning He remembered about joking with me before leaving yesterday He said that he continues to fall weak He is saturated well on RA Denies any chest pain, palpitation and fever Objective Last 8 Hrs Date Time Temp Pulse Resp B/P (MAP) Pulse Ox O2 Delivery O2 Flow Rate FiO2 09/02/17 15:53 36.3 79 20 93/52 (66) 99 Room Air 09/02/17 12:00 Room Air 09/02/17 10:58 36.3 73 20 111/75 (87) 97 Room Air Physical Exam: General- No acute distress Head- atraumatic Eyes- PERRL, EOMI ENT- oropharynx clear Neck- supple Lungs- Decrease BS Heart- regular rhythm, +systolic murmur Abdomen- normal bowel sounds, soft Extremities- no calf tenderness Neuro- alert, but confused Skin- warm & dry Laboratory Results: Last 24 Hours Test 09/01/17 20:50 09/02/17 06:46 09/02/17 06:55 09/02/17 10:57 Bedside Glucose 229 mg/dl 135 mg/dl 174 mg/dl Sodium Level 137 mmol/L Potassium Level 4.9 mmol/L Chloride Level 106 mmol/L Carbon Dioxide Level 19 mmol/L Anion Gap 12.0 mmol/L Blood Urea Nitrogen 118 mg/dl Creatinine 2.71 mg/dl Est Creatinine Clear Calc Drug Dose 19.4 ml/min Estimated GFR () 23.2 Estimated GFR (Non- 20.0 BUN/Creatinine Ratio 43.7 Random Glucose 121 mg/dl Calcium Level 8.9 mg/dl Test 09/02/17 16:05 Bedside Glucose 118 mg/dl Assessment & Plan ACUTE DECOMPENSATED SYSTOLIC CHF CXR on admission showed Congestive heart failure with Small left effusion. Elevated BNP on admission. Echo showed LVEF < 25%. Received diuresis, showed improvement Furosemide has been on hold due to elevated creatinine. Continue holding ACEI, ARB, or spironolactone due to renal failure Lasix 20mg PO given today as per cardio Continue holding ACEI Monitor BMP in am Further management per Cardiology. Stable 09/02 Saturated well on RA Lasix was given yesterday Creatine 2.7 today Will hold lasix Continue monitor BMP ELEVATED CARDIAC MARKERS Possible Non-STEMI Was on IV heparin. Continue aspirin, metoprolol, ECHO showed Abnormal septal wall motion is present consistent with right ventricular pacing. There is diffuse left ventricular hypokinesis to akinesis with akinesis of the apical segments. Stable AORTIC STENOSIS Echo showed aortic valve is severely calcified with severe restriction of the cusps. Seems to be inoperable at present as per cardio Consult placed for [facility] valve clinic consultation requested post discharge. Daughter would like a referral to [facility] Has a follow up with cardiology on Monday in [place] Further management per Cardiology. GENERALIZED WEAKNESS Continue PT/OT Fall precaution COUGH / HEMOPTYSIS influenza negative. CXR showed no infiltrates Sputum cx positive for Pseudomonas. Continue Cefepime. PLEURAL EFFUSION S/P Left thoracentesis performed by Thoracic Surgery. Recent CXR showed slight increase in small bilateral pleural effusions. Transudate. Cytology negative Thoracic surgery on board Discussed case with Dr. Trujillo recommended outpatient follow between 1 to week with a repeat cxr No plan to place an indwelling pleural catheter at this time since pt Saturates well on RA May reconsider if effusion worsening or becomes hypoxia Repeat CXR in am CHRONIC KIDNEY DISEASE III / ACUTE KIDNEY INJURY Creatine on admission 2.14, baseline creatinine around 1.5. Creatine increased to 2.7 today Received lasix yesterday, Hold any additional lasix Continue avoid nephrotoxic agents nephrology on board Continue monitor BMP DM TYPE 2 Well-controlled at home. Hgb A1C = 5.7. Pharmacy consulted for glycemic management. Stable VTE PROPHYLAXIS On heparin subQ DISPOSITION Possible discharge tomorrow if medically stable Consultants: Thoracic vascular Nephro cardio Current Inpatient Medications: Current Inpatient Medications Medications (Trade) Dose Ordered Sig/Isaiah Route Start Time Stop Time Status Last Admin Dose Admin Acetaminophen (Tylenol Tab) 650 mg Q4H PRN PO 08/22/17 13:45 09/21/17 13:44 08/31/17 22:16 650 MG Insulin Aspart (novoLOG ASPART) SLIDING SCALE ACHS SC 08/22/17 21:00 09/21/17 20:59 09/02/17 13:09 5 UNITS Glucose (Glucose 40% Gel) 15-30 GRAMS 15 GRAMS... UD PRN PO 08/22/17 19:45 09/21/17 19:44 Glucose (Glucose Chew Tab) 4-8 Tablets 4 Tabl... UD PRN PO 08/22/17 19:45 09/21/17 19:44 Dextrose (Dextrose 50% 50ML Syringe) 25-50ML OF 50% DW IV FOR... UD PRN IV 08/22/17 19:45 09/21/17 19:44 Glucagon (Glucagon Inj) 1 mg UD PRN SQ 08/22/17 19:45 09/21/17 19:44 Morphine Sulfate (MoRPHine SULFATE INJ) 2 mg Q4H PRN IV 08/22/17 19:45 09/05/17 19:44 Al Hydroxide/Mg Hydroxide/ Lidocaine HCl/ Barcode Q8H PRN PO 08/22/17 20:15 09/21/17 20:14 Aspirin (Ecotrin Tab) 81 mg DAILY PO 08/23/17 09:00 09/22/17 08:59 09/02/17 08:25 81 MG Metoprolol Succinate (Toprol Xl Tab) 12.5 mg QAM PO 08/24/17 09:00 09/23/17 08:59 09/02/17 08:26 12.5 MG Insulin Glargine (Lantus Solostar Pen) 14 units HS SC 08/25/17 17:00 09/24/17 16:59 09/01/17 20:57 14 UNITS Heparin Sodium (Porcine) (Heparin Sq 5000 Unit/0.5ml) 5,000 unit Q12 SQ 08/24/17 21:00 09/23/17 20:59 09/02/17 08:29 5,000 UNIT Cholecalciferol (Vitamin D Tab) 1,000 inter.unit QAM PO 08/24/17 16:30 09/23/17 16:29 09/02/17 08:26 1,000 INTER.UNIT Calcitriol (Rocaltrol Cap) 0.25 mcg DAILY PO 08/24/17 16:30 09/23/17 16:29 09/02/17 08:26 0.25 MCG Zolpidem Tartrate (Ambien Tab) 5 mg HS PRN PO 08/26/17 11:30 09/25/17 11:29 08/30/17 01:11 5 MG Cefepime HCl (Consult) 1 ea UD PRN N/A 08/27/17 14:00 09/26/17 13:59 Cefepime HCl 2000 mg/Syringe 12.5 ml @ 5.5 mls/min DAILY@1200 IV 08/29/17 12:00 09/05/17 11:59 09/02/17 13:06 5.5 MLS/MIN Promethazine HCl 12.5 mg/Sodium Chloride 50.5 ml @ 204 mls/hr Q6H PRN IV 08/28/17 18:45 09/27/17 18:44 08/30/17 01:06 204 MLS/HR Polyethylene (Miralax Powder Packet) 17 gm DAILY PRN PO 08/30/17 20:45 09/29/17 20:44 Senna/Docusate Sodium (Senokot S Tab) 1 tab QAM PO 09/01/17 09:00 10/01/17 08:59 09/02/17 08:26 1 TAB Furosemide (Lasix Tab) 20 mg QAM PO 09/01/17 09:00 10/01/17 08:59 Future Hold 09/01/17 08:57 20 MG
[2017-09-02 19:50] VITALS: BP 107/69; PULSE 70; TEMP 36.3; O2SAT 100
[2017-09-02] MEDS: INSULIN GLARGINE SOLOSTAR 100 UNITS/ML 3 ML PEN SC SCH (21:34)
[2017-09-03 01:13] VITALS: BP 105/68; PULSE 83; TEMP 36.8; O2SAT 100
[2017-09-03 03:43] VITALS: BP 104/67; PULSE 71; TEMP 36.8; O2SAT 90
[2017-09-03 07:02] LABS: CALCIUM 8.9 mg/dl (8.5-10.1); CREATININE 2.67 mg/dl (0.60-1.40); POTASSIUM 4.6 mmol/L (3.5-5.1)
[2017-09-03 07:29] VITALS: BP 119/80; PULSE 84; TEMP 36.7; O2SAT 96
--- NOTE | 2017-09-03 07:30 | DIAGNOSTIC IMAGING REPORT ---
CHEST ONE VIEW PORTABLE CLINICAL HISTORY: Pleural effusions. COMPARISON STUDY: Chest radiograph August 30, 2017. 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 Cardiomegaly is unchanged. There is no pneumothorax. Mild pulmonary edema persists although has improved. There are persistent small bilateral pleural effusions. IMPRESSION: 1. Small bilateral pleural effusions. 2. Persistent but improved pulmonary edema. Electronically signed by: Mariano Gracia M.D. 09/03/2017 7:29 AM Dictated Date/Time: 09/03/2017 7:28 AM
[2017-09-03] MEDS: CALCITRIOL 0.25 MCG CAP PO SCH (09:02)
[2017-09-03] MEDS: CHOLECALCIFEROL 1000 INTER.UNIT TAB PO SCH (09:02)
[2017-09-03] MEDS: ASPIRIN 81 MG ECTAB PO SCH (09:02)
[2017-09-03] MEDS: METOPROLOL SUCC 25MG EXT REL TAB PO SCH (09:03)
[2017-09-03] MEDS: DOCUSATE SODIUM/SENNA 50/8.6MG TAB PO SCH (09:04)
[2017-09-03] MEDS: HEPARIN SOD 5000 UNIT/0.5 ML CARP SQ SCH (09:06)
[2017-09-03] MEDS: INSULIN ASPART 100 UNITS/ML 3 ML PEN SC SCH ×2 (09:08→12:53)
[2017-09-03 11:01] VITALS: BP 98/65; PULSE 68; TEMP 36.4; O2SAT 98
[2017-09-03] MEDS: CEFEPIME IV 2,000 MG in SYRINGE 0 ML IV SCH (12:50)
--- NOTE | 2017-09-03 14:34 | Progress Note ---
Medicine Progress Note Date & Time of Visit: Sep 03, 2017 at 14:13. Subjective Pt was seen and examined Lying in bed with no distress Spoke to daughter today and provided update about her dad Daughter said that her dad seems to look much better today Pt said that he feels ok today He said that he continues to feels weak. Denies any chest pain, palpitation, dizziness and SOB Objective Last 8 Hrs Date Time Temp Pulse Resp B/P (MAP) Pulse Ox O2 Delivery O2 Flow Rate FiO2 09/03/17 11:10 Room Air 09/03/17 11:01 36.4 68 20 98/65 (76) 98 Nasal Cannula 2.0 09/03/17 08:25 Nasal Cannula 2.0 09/03/17 07:29 36.7 84 20 119/80 (93) 96 Room Air Physical Exam: General- No acute distress Head- atraumatic Eyes- PERRL, EOMI ENT- oropharynx clear Neck- supple Lungs- Decrease BS Heart- regular rhythm, +systolic murmur Abdomen- normal bowel sounds, soft Extremities- no calf tenderness Neuro- alert, but confused Skin- warm & dry Laboratory Results: Last 24 Hours Test 09/02/17 16:05 09/02/17 20:59 09/03/17 05:49 09/03/17 06:32 Bedside Glucose 118 mg/dl 188 mg/dl 110 mg/dl Sodium Level 137 mmol/L Potassium Level 4.6 mmol/L Chloride Level 109 mmol/L Carbon Dioxide Level 18 mmol/L Anion Gap 10.0 mmol/L Blood Urea Nitrogen 124 mg/dl Creatinine 2.67 mg/dl Est Creatinine Clear Calc Drug Dose 19.7 ml/min Estimated GFR () 23.7 Estimated GFR (Non- 20.4 BUN/Creatinine Ratio 46.4 Random Glucose 109 mg/dl Calcium Level 8.9 mg/dl Test 09/03/17 11:40 Bedside Glucose 147 mg/dl Assessment & Plan ACUTE DECOMPENSATED SYSTOLIC CHF CXR on admission showed Congestive heart failure with Small left effusion. Elevated BNP on admission. Echo showed LVEF < 25%. Received diuresis, showed improvement Furosemide has been on hold due to elevated creatinine. Continue holding ACEI, ARB, or spironolactone due to renal failure Lasix 20mg PO given today as per cardio Continue holding ACEI Monitor BMP in am Further management per Cardiology. Stable 09/03 Saturated well on RA Lasix was given yesterday Creatine slightly decrease 2.7 ---> to 2.6 today Continue to hold Lasix, may resume when creatine is near to baseline will check BMP twice weakly for the next 3-4 weeks Case discussed with cardiology Dr. Renner and agreed with plan ELEVATED CARDIAC MARKERS Possible Non-STEMI Was on IV heparin. Continue aspirin, metoprolol, ECHO showed * A ventricular paced rhythm at 97 bpm was present during the echocardiogram, with Doppler data consistent with sinus tachycardia. * There is moderate concentric left ventricular hypertrophy. * Abnormal septal wall motion is present consistent with right ventricular pacing. * There is diffuse left ventricular hypokinesis to akinesis with akinesis of the apical segments. * Left ventricular systolic function is severely reduced. * The qualitative left ventricular ejection fraction is < 25%. * The aortic valve is severely calcified with severe restriction of the cusps. * The Doppler and 2D assessment of aortic valve stenosis are discordant. * The aortic valve stenosis appears severe, and the severity appears to be underestimated by the Doppler assessment. AORTIC STENOSIS Echo showed aortic valve is severely calcified with severe restriction of the cusps. Seems to be inoperable at present as per cardio Consult placed for [facility] valve clinic consultation requested post discharge. Daughter would like a referral to [facility] as well (Will be arrange as an outpatient by the cardiology clinic) Has a follow up with cardiology on 09/04 in [place] for the Valve clinic Further management per Cardiology. GENERALIZED WEAKNESS Continue PT/OT Fall precaution COUGH / HEMOPTYSIS influenza negative. CXR showed no infiltrates Sputum cx positive for Pseudomonas. Continue Cefepime. PLEURAL EFFUSION S/P Left thoracentesis performed by Thoracic Surgery. Transudate fluid Repeat CXR showed small bilateral pleural effusions. persistent but improved pulmonary edema. Cytology negative Thoracic surgery on board Discussed case with Dr. Trujillo recommended outpatient follow between 1 to 2 week with a repeat cxr No plan to place an indwelling pleural catheter at this time since pt Saturates well on RA May reconsider if effusion worsening or becomes hypoxia CHRONIC KIDNEY DISEASE III / ACUTE KIDNEY INJURY Creatine on admission 2.14, baseline creatinine around 1.5. Creatine increased to 2.6 today Continue holding lasix due to YAN Continue avoid nephrotoxic agents nephrology on board Continue monitor BMP twice weakly for 3-4 weeks DM TYPE 2 Well-controlled at home. Hgb A1C = 5.7. Pharmacy consulted for glycemic management. Stable VTE PROPHYLAXIS On heparin subQ DISPOSITION Discharge to [facility] today Follow up with [facility] valve clinic tomorrow Follow up with Thoracic vascular in 1 to 2 weeks Check BMP twice a week for 3-4 weeks to monitor kidney function Continue hold lasix until renal function is near baseline Consultants: Thoracic vascular Nephro cardio Current Inpatient Medications: Current Inpatient Medications Medications (Trade) Dose Ordered Sig/Isaiah Route Start Time Stop Time Status Last Admin Dose Admin Acetaminophen (Tylenol Tab) 650 mg Q4H PRN PO 08/22/17 13:45 09/21/17 13:44 08/31/17 22:16 650 MG Insulin Aspart (novoLOG ASPART) SLIDING SCALE ACHS SC 08/22/17 21:00 09/21/17 20:59 09/03/17 12:53 3 UNITS Glucose (Glucose 40% Gel) 15-30 GRAMS 15 GRAMS... UD PRN PO 08/22/17 19:45 09/21/17 19:44 Glucose (Glucose Chew Tab) 4-8 Tablets 4 Tabl... UD PRN PO 08/22/17 19:45 09/21/17 19:44 Dextrose (Dextrose 50% 50ML Syringe) 25-50ML OF 50% DW IV FOR... UD PRN IV 08/22/17 19:45 09/21/17 19:44 Glucagon (Glucagon Inj) 1 mg UD PRN SQ 08/22/17 19:45 09/21/17 19:44 Morphine Sulfate (MoRPHine SULFATE INJ) 2 mg Q4H PRN IV 08/22/17 19:45 09/05/17 19:44 Al Hydroxide/Mg Hydroxide/ Lidocaine HCl/ Barcode Q8H PRN PO 08/22/17 20:15 09/21/17 20:14 Aspirin (Ecotrin Tab) 81 mg DAILY PO 08/23/17 09:00 09/22/17 08:59 09/03/17 09:02 81 MG Metoprolol Succinate (Toprol Xl Tab) 12.5 mg QAM PO 08/24/17 09:00 09/23/17 08:59 09/03/17 09:03 12.5 MG Insulin Glargine (Lantus Solostar Pen) 14 units HS SC 08/25/17 17:00 09/24/17 16:59 09/02/17 21:34 14 UNITS Heparin Sodium (Porcine) (Heparin Sq 5000 Unit/0.5ml) 5,000 unit Q12 SQ 08/24/17 21:00 09/23/17 20:59 09/03/17 09:06 5,000 UNIT Cholecalciferol (Vitamin D Tab) 1,000 inter.unit QAM PO 08/24/17 16:30 09/23/17 16:29 09/03/17 09:02 1,000 INTER.UNIT Calcitriol (Rocaltrol Cap) 0.25 mcg DAILY PO 08/24/17 16:30 09/23/17 16:29 09/03/17 09:02 0.25 MCG Zolpidem Tartrate (Ambien Tab) 5 mg HS PRN PO 08/26/17 11:30 09/25/17 11:29 08/30/17 01:11 5 MG Cefepime HCl (Consult) 1 ea UD PRN N/A 08/27/17 14:00 09/26/17 13:59 Cefepime HCl 2000 mg/Syringe 12.5 ml @ 5.5 mls/min DAILY@1200 IV 08/29/17 12:00 09/05/17 11:59 09/03/17 12:50 5.5 MLS/MIN Promethazine HCl 12.5 mg/Sodium Chloride 50.5 ml @ 204 mls/hr Q6H PRN IV 08/28/17 18:45 09/27/17 18:44 08/30/17 01:06 204 MLS/HR Polyethylene (Miralax Powder Packet) 17 gm DAILY PRN PO 08/30/17 20:45 09/29/17 20:44 Senna/Docusate Sodium (Senokot S Tab) 1 tab QAM PO 09/01/17 09:00 10/01/17 08:59 09/03/17 09:04 1 TAB Furosemide (Lasix Tab) 20 mg QAM PO 09/01/17 09:00 10/01/17 08:59 Future Hold 09/01/17 08:57 20 MG
[2017-09-03] MEDS ORDERED: TPRSR25 PO (14:40)
[2017-09-03] MEDS ORDERED: VTMD1000 PO (14:40)
[2017-09-03] MEDS ORDERED: RCL25 PO (14:40)
[2017-09-03 14:41] VITALS: BP 98/65; PULSE 68; TEMP 36.4; O2SAT 98
--- NOTE | 2017-09-03 14:51 | Discharge Instructions ---
Discharge Instructions Date of Service Sep 03, 2017. Admission Reason for Admission: Elevated Troponin Discharge Discharge Diagnosis / Problem: ACUTE DECOMPENSATED SYSTOLIC CHF, AORTIC STENOSIS, Pleural effusion Discharge Goals Goal(s): Decrease discomfort, Improve function, Improve disease control Activity Recommendations Activity Limitations: resume your previous activity (as tolerated) . Instructions / Follow-Up Instructions / Follow-Up Discharge to [facility] today Follow up with [facility] valve clinic tomorrow in [place] Follow up with your primary care provider once discharge from [facility] Follow up with Thoracic vascular Dr. Trujillo in 1 to 2 weeks ( please call to schedule appointment) Follow up with Nephrology Dr. Pedroza (Please call to schedule appointment) Check BMP twice a week for 3-4 weeks to monitor kidney function Continue holding Lasix and lisinopril until renal function is near baseline Continue Physical therapy Fall precaution Continue 2L oxygen supplement as needed for dyspnea. Continue monitor blood sugar and titrate insulin if needed Current Hospital Diet Patient's current hospital diet: AHA Diet (Heart Healthy), Diabetes Type 2 Diet , Low Potassium Diet (2g K) Discharge Diet Recommended Diet: AHA Diet (Heart Healthy), Diabetes Type 2 Diet, Low Potassium Diet (2g K) Pending Studies Studies pending at discharge: no Laboratory Results Hemoglobin A1c Test 08/23/17 04:33 Range/Units Estimated Average Glucose 117 mg/dl Hemoglobin A1c 5.7 H 4.5-5.6 % Lipid Panel Test 08/24/17 06:10 Range/Units Triglycerides Level 95 0-150 mg/dl Cholesterol Level 79 0-200 mg/dl HDL Cholesterol 31 mg/dl Cholesterol/HDL Ratio 2.5 LDL Cholesterol, Calculated 29 mg/dl Medical Emergencies . Who to Call and When: Medical Emergencies: If at any time you feel your situation is an emergency, please call 911 immediately. . Non-Emergent Contact Non-Emergency issues call your: Primary Care Provider, Junior Systems Engineer Call Non-Emergent contact if: you have any medication questions . . "Provider Documentation" section prepared by [facility] Mann. . VTE Core Measure Inpt VTE Proph given/why not?: Unfractionated heparin SQ
--- NOTE | 2017-09-04 08:12 | Discharge Summary ---
Discharge Summary Date of Service Sep 04, 2017. Discharge Summary Admission Date: Aug 22, 2017 at 13:33 Discharge Date: Sep 03, 2017 Discharge Disposition: [facility] facility Principal Diagnosis: ACUTE DECOMPENSATED SYSTOLIC CHF Secondary Diagnoses/Problems: AORTIC STENOSIS PLEURAL EFFUSION ELEVATED CARDIAC MARKERS GENERALIZED WEAKNESS COUGH / HEMOPTYSIS CHRONIC KIDNEY DISEASE III / ACUTE KIDNEY INJURY DM TYPE 2 Procedures: S/P Left thoracentesis performed by Thoracic Surgery. ECHO Interpretation Summary * Name: GERARDO NICK Study Date: 08/22/2017 04:00 PM BP: 95/68 mmHg * Patient Location: .[id number]\\[id number]\\S235\\S\\1 HR: 96 * : 1930 (M/d/yyyy) Gender: Male Height: 70 in * Age: 86 yrs Ethnicity: [place] Weight: 167 lb * Ordering Physician: Silvestre Xiong * Referring Physician: Self, Referred * Performed By: Kourtney Alvarez RDCS * * Reason For Study: CHEST PAIN, CHF, KNOWN CRITICALLY SEVERE * BSA: 1.9 m2 * -- Conclusions -- * A ventricular paced rhythm at 97 bpm was present during the echocardiogram, with Doppler data consistent with sinus tachycardia. * There is moderate concentric left ventricular hypertrophy. * Abnormal septal wall motion is present consistent with right ventricular pacing. * There is diffuse left ventricular hypokinesis to akinesis with akinesis of the apical segments. * Left ventricular systolic function is severely reduced. * The qualitative left ventricular ejection fraction is < 25%. * The aortic valve is severely calcified with severe restriction of the cusps. * The Doppler and 2D assessment of aortic valve stenosis are discordant. * The aortic valve stenosis appears severe, and the severity appears to be underestimated by the Doppler assessment. * Compared to the prior outpatient echocardiogram study performed at [facility] in April,, there has been and interval placement of a pacemaker. * There has been an interval decline in the LVEF. * The Doppler data was consistent with severe on the prior study, and perhaps the low gradients calculated on the present study are due to an interval decline in LVEF and cardiac output. Procedure Details * A contrast injection of Definity was performed to improve assessment of LV function. * Contrast was injected into an intravenous site in the left arm. * One vial of Definity ultrasound contrast was diluted in normal saline to a total volume of 10 ml. A total of '2' ml of solution was administered during imaging. * Lot # [id number] of Definity utilized for procedure. * Expiration date 1 SEP 04. * The attending nurse who injected the contrast agent was JORDANA LYLES. * A complete two-dimensional transthoracic echocardiogram was performed (2D, M- mode, Doppler and color flow Doppler). Left Ventricle * The left ventricle is normal in size. * There is moderate concentric left ventricular hypertrophy. * Left ventricular systolic function is severely reduced. * The qualitative left ventricular ejection fraction is < 25%. * Abnormal septal wall motion is present consistent with right ventricular pacing. There is diffiuse left ventricular hypokinesis to akinesis with akinesis of the apical segments. Right Ventricle * The right ventricle is normal in size and function. * The right ventricular systolic function is normal as assessed by tricuspid annular plane systolic excursion (TAPSE) (normal >1.5 cm). Atria * The left atrium is severely dilated. * The right atrium is mildly dilated. * A pacemaker lead is noted in the right atrium. * There is no evidence of atrial septal defect, but resolution does not allow assessment for a patent foramen ovale. Mitral Valve * There is moderate mitral annular calcification. * There is no mitral valve stenosis. * There is mild mitral regurgitation. Tricuspid Valve * The tricuspid valve is normal. * There is no tricuspid stenosis. * There is mild tricuspid regurgitation. Aortic Valve * The aortic valve is trileaflet. * The aortic valve is severely calcified with severe restriction of the cusps. * Severe valvular aortic stenosis. * There is no significant aortic regurgitation. Pulmonic Valve * The pulmonary valve is inadequately visualized, but the Doppler data is adequate for interpretation. * Pulmonic stenosis is absent. * Mild pulmonic valvular regurgitation. Great Vessels * The aortic root and proximal ascending aorta are normal sized. Pericardium/Pleural * There is no pericardial effusion. * Moderate size left pleural effusion. Right Ventricle * A pacemaker lead is noted in the right ventricle. Great Vessels * Normal inferior vena cava size and collapsability with sniff indicates a normal right atrial pressure of 3 mmHg Consultations: Thoracic vascular Nephro cardio Medication Reconciliation New Medications: Calcitriol (Calcitriol) 0.25 Mcg Cap 0.25 MCG PO DAILY for 30 Days, #30 CAP Cholecalciferol (Vitamin D3) 1,000 Inter.unit Tab 1000 INTER.UNIT PO QAM for 30 Days, #30 TAB Metoprolol Succinate (Metoprolol Succinate ER) 25 Mg Tabcr 12.5 MG PO QAM for 30 Days Continued Medications: Aspirin (Aspirin Ec) 81 Mg Tab 81 MG PO DAILY Coenzyme Q10 (Ubidecarenone) (Coq-10) 100 Mg Cap 100 MG PO DAILY Ferrous Sulfate (Kp Ferrous Sulfate) 325 Mg Tab 325 MG PO DAILY Insulin Glargine (Lantus Solostar) 100 Unit/Ml Inj 8 UNITS SC QPM Discontinued Medications: Amlodipine (Norvasc) 10 Mg Tab 10 MG PO DAILY Lisinopril (Zestril) 20 Mg Tab 20 MG PO DAILY Admission Information HPI (per Admitting provider): This is a 86yo M with a PMH of severe aortic stenosis, complete heart block s/p pacemaker placement in May 2017, DM II, HTN, CKD III and other medical problems listed below who presents with worsening chest pain/SOB over the last 4 days. States that he has experienced intermittent chest pain with exertion over the past month when doing activities in the yard like splitting wood. He has maintained an active lifestyle despite pain but has experienced worsening SOB over the past few days as well as continued substernal chest pain. Worse with exertion and coughing. Has not been able to work in the yard and has been sitting inside. Daughter has been living with patient for the last month due to decline in health. States that her father is under-reporting severity of CP and SOB over the past 4 days. Per daughter, patient has lightheadedness every time he stands and is requiring help with ambulation. Very fatigued. Has not felt well for the past week, endorsing productive cough, lightheadedness, body aches and nausea. Denies fever, chills, vomiting, diarrhea. Decreased PO intake. Was previously seen by Dr. Xiong in Apr 2017 for pre-op evaluation for knee surgery. EKG with bradycardia and echo showed critically severe aortic stenosis and intermittent complete heart block. Had a pacemaker placed at [facility] in May. As for aortic stenosis, patient states he has been reading about the TAVR procedure and is considering it. In ED, patient's troponin was elevated at 5.5. EKG with ventricular-paced rhythm. CXR with CHF. Physical Exam (per Admitting): General Appearance: WD/WN, no apparent distress, + pertinent finding ( Resting comfortably, ) Head: normocephalic, atraumatic Eyes: normal inspection, PERRL, sclerae normal ENT: normal ENT inspection (hard of hearing ), pharynx normal (dry mucous membranes ) Neck: supple, no JVD, trachea midline Respiratory/Chest: chest non-tender, lungs clear, normal breath sounds, no respiratory distress, no accessory muscle use Cardiovascular: regular rate, rhythm, no murmur, normal peripheral pulses, + systolic murmur (2/6 systolic murmur at base ) Abdomen/GI: non tender, soft, no organomegaly Back: normal inspection Extremities/Musculoskelatal: normal inspection, no calf tenderness, + pertinent finding (Trace edema of BLE. S/p L transmetatarsal amputation) Neurologic/Psych: no motor/sensory deficits, alert, normal mood/affect, oriented x 3 Skin: normal color, warm/dry Hospital Course ACUTE DECOMPENSATED SYSTOLIC CHF CXR on admission showed Congestive heart failure with Small left effusion. Elevated BNP on admission. Echo showed LVEF < 25%. Received diuresis, showed improvement Furosemide has been on hold due to elevated creatinine. Continue holding ACEI, ARB, or spironolactone due to renal failure Lasix 20mg PO given today as per cardio Continue holding ACEI Monitor BMP in am Further management per Cardiology. Stable 09/03 Saturated well on RA Lasix was given yesterday Creatine slightly decrease 2.7 ---> to 2.6 today Continue to hold Lasix, may resume when creatine is near to baseline will check BMP twice weakly for the next 3-4 weeks Case discussed with cardiology Dr. Renner and agreed with plan ELEVATED CARDIAC MARKERS Possible Non-STEMI Was on IV heparin. Continue aspirin, metoprolol, ECHO showed * A ventricular paced rhythm at 97 bpm was present during the echocardiogram, with Doppler data consistent with sinus tachycardia. * There is moderate concentric left ventricular hypertrophy. * Abnormal septal wall motion is present consistent with right ventricular pacing. * There is diffuse left ventricular hypokinesis to akinesis with akinesis of the apical segments. * Left ventricular systolic function is severely reduced. * The qualitative left ventricular ejection fraction is < 25%. * The aortic valve is severely calcified with severe restriction of the cusps. * The Doppler and 2D assessment of aortic valve stenosis are discordant. * The aortic valve stenosis appears severe, and the severity appears to be underestimated by the Doppler assessment. AORTIC STENOSIS Echo showed aortic valve is severely calcified with severe restriction of the cusps. Seems to be inoperable at present as per cardio Consult placed for [facility] valve clinic consultation requested post discharge. Daughter would like a referral to [facility] as well (Will be arrange as an outpatient by the cardiology clinic) Has a follow up with cardiology on 09/04 in [place] for the Valve clinic Further management per Cardiology. GENERALIZED WEAKNESS Continue PT/OT Fall precaution COUGH / HEMOPTYSIS influenza negative. CXR showed no infiltrates Sputum cx positive for Pseudomonas. Continue Cefepime. PLEURAL EFFUSION S/P Left thoracentesis performed by Thoracic Surgery. Transudate fluid Repeat CXR showed small bilateral pleural effusions. persistent but improved pulmonary edema. Cytology negative Thoracic surgery on board Discussed case with Dr. Trujillo recommended outpatient follow between 1 to 2 week with a repeat cxr No plan to place an indwelling pleural catheter at this time since pt Saturates well on RA May reconsider if effusion worsening or becomes hypoxia CHRONIC KIDNEY DISEASE III / ACUTE KIDNEY INJURY Creatine on admission 2.14, baseline creatinine around 1.5. Creatine increased to 2.6 today Continue holding lasix due to YAN Continue avoid nephrotoxic agents nephrology on board Continue monitor BMP twice weakly for 3-4 weeks DM TYPE 2 Well-controlled at home. Hgb A1C = 5.7. Pharmacy consulted for glycemic management. Stable VTE PROPHYLAXIS On heparin subQ DISPOSITION Discharge to [facility] Follow up with Thoracic vascular in 1 to 2 weeks Check BMP twice a week for 3-4 weeks to monitor kidney function Continue hold lasix until renal function is near baseline Total time spent on discharge = 40 MINUTES This includes examination of the patient, discharge planning, medication reconciliation, and communication with other providers. Discharge Instructions Discharge Instructions Date of Service Sep 03, 2017. Admission Reason for Admission: Elevated Troponin Discharge Discharge Diagnosis / Problem: ACUTE DECOMPENSATED SYSTOLIC CHF, AORTIC STENOSIS, Pleural effusion Discharge Goals Goal(s): Decrease discomfort, Improve function, Improve disease control Activity Recommendations Activity Limitations: resume your previous activity (as tolerated) . Instructions / Follow-Up Instructions / Follow-Up Discharge to [facility] Follow up with [facility] valve clinic tomorrow in [place] Follow up with your primary care provider once discharge from [facility] Follow up with Thoracic vascular Dr. Trujillo in 1 to 2 weeks ( please call to schedule appointment) Follow up with Nephrology Dr. Pedroza (Please call to schedule appointment) Check BMP twice a week for 3-4 weeks to monitor kidney function Continue holding Lasix and lisinopril until renal function is near baseline Continue Physical therapy Fall precaution Continue 2L oxygen supplement as needed for dyspnea. Continue monitor blood sugar and titrate insulin if needed Current Hospital Diet Patient's current hospital diet: AHA Diet (Heart Healthy), Diabetes Type 2 Diet , Low Potassium Diet (2g K) Discharge Diet Recommended Diet: AHA Diet (Heart Healthy), Diabetes Type 2 Diet, Low Potassium Diet (2g K) Pending Studies Studies pending at discharge: no Laboratory Results Hemoglobin A1c Test 08/23/17 04:33 Range/Units Estimated Average Glucose 117 mg/dl Hemoglobin A1c 5.7 H 4.5-5.6 % Lipid Panel Test 08/24/17 06:10 Range/Units Triglycerides Level 95 0-150 mg/dl Cholesterol Level 79 0-200 mg/dl HDL Cholesterol 31 mg/dl Cholesterol/HDL Ratio 2.5 LDL Cholesterol, Calculated 29 mg/dl Medical Emergencies . Who to Call and When: Medical Emergencies: If at any time you feel your situation is an emergency, please call 911 immediately. . Non-Emergent Contact Non-Emergency issues call your: Primary Care Provider, Office Director Call Non-Emergent contact if: you have any medication questions . . "Provider Documentation" section prepared by [facility]. . VTE Core Measure Inpt VTE Proph given/why not?: Unfractionated heparin SQ Additional Copies To Slade Sanchez
[2017-09-08] MEDS ORDERED: CALC0.2510 PO (04:05)
[2017-09-08] MEDS ORDERED: CHOL1000 PO (04:06)
[2017-09-08] MEDS ORDERED: HPRI5M SQ (04:09)
[2017-09-08] MEDS ORDERED: NVLG SQ ×2 (04:11→05:06)
[2017-09-08] MEDS ORDERED: INSDGI SQ (04:14)
[2017-09-08] MEDS ORDERED: SENN-65 PO (04:17)
[2017-09-08] MEDS ORDERED: ONDA4TAB46 PO (04:18)
[2017-09-08] MEDS ORDERED: ATRINS NEB (04:21)
[2017-09-08] MEDS ORDERED: ACET-1311 PO (04:59)
[2017-09-08] MEDS ORDERED: POLY335019 PO (05:03)
[2017-09-08] MEDS ORDERED: IPRASOL4 INH (05:09)
[2017-09-08] MEDS ORDERED: TPRSR/25 PO (05:12)
== END 2017-09-03 15:20 | DRG 280 ==
LOC: C.EDB 11:11 → C.2T 13:33 → EDBEDREQ 13:40 → ENRESERV 14:16
PROVIDERS: ADMIT Hospitalist; ATTEND Internal Medicine
PROC: 0W9B3ZX Drainage of Left Pleural Cavity, Percutaneous Approach, Diagnostic (ICD-10-PCS; principal; 2017-08-24)
DX: I13.0 Hypertensive heart and chronic kidney disease with heart failure and stage 1 through stage 4 chronic kidney disease, or unspecified chronic kidney disease (principal); I50.43 Acute on chronic combined systolic (congestive) and diastolic (congestive) heart failure; I21.4 Non-ST elevation (NSTEMI) myocardial infarction; N17.9 Acute kidney failure, unspecified; I44.2 Atrioventricular block, complete; J90 Pleural effusion, not elsewhere classified; I25.10 Atherosclerotic heart disease of native coronary artery without angina pectoris; I35.0 Nonrheumatic aortic (valve) stenosis; E11.22 Type 2 diabetes mellitus with diabetic chronic kidney disease; N18.3 Chronic kidney disease, stage 3 (moderate); Z95.0 Presence of cardiac pacemaker; Z79.82 Long term (current) use of aspirin; Z79.4 Long term (current) use of insulin

== ENCOUNTER 2017-09-22 23:13 | Emergency (ER) | payer OTHER ==
[~2017-09-22] VITALS: Ht 177.8 cm; Wt 70.0 kg
[~2017-09-22 23:13] MED LIST changes: +ACET-1311 PO; +ASPI81TA28 PO; +CALC0.2510 PO; +CHOL1000 PO; -CLOT1CRE47 TOP; +COEN100C11 PO; +FERR1TAB13 PO; +HPRI5M SQ; +INSDGI SQ; -INSDGIPEN SQ; +IPRASOL4 INH; -LSN20 PO; -NRV/10 PO; +NVLG SQ; +ONDA4TAB46 PO; +SENN-65 PO; -SILV1PAD9 EX; +TPRSR/25 PO; -[UNRECOGNIZED DRUG - CODE] EXT
[2017-09-22 23:25] VITALS: Ht 177.8 cm; Wt 70.0 kg
[2017-09-23] MEDS ORDERED: MORPHINE SULFATE 20 MG PO SCH
[2017-09-23] MEDS ORDERED: MoRPHine SULFATE 4 MG/ML 1 ML CARP\\VIAL IV STA ×2 (00:13→01:06)
--- NOTE | 2017-09-23 00:13 | EMERGENCY ROOM VISIT NOTE ---
History Report prepared by Cirilo: Lester Argueta Under the Supervision of: Anton KnowlesO. First contact with patient: 23:44 Chief Complaint: RESPIRATORY PROBLEMS Stated Complaint: RESPIRATORY PROBLEMS History of Present Illness The patient is a 87 year old male who presents to the Emergency Room with daughter's complaints of worsening, severe shortness of breath beginning today. She notes that about 2 weeks ago the patient was hospitalized for sepsis and later developed a GI bleed of unknown origin. The daughter states that the patient was discharged from the hospital today, but was not feeling well at home. She described the patient as clenching his chest, and having a christiansen, pallor experience. She also notes that the patient was hypoxic and suffering from a distended abdomen. The patient's daughter states that she gave the patient 3 aspirin, 5325 Vicodin, and oxygen therapy at home [employer] in the ED. She also notes that the patient takes Lasix, Lopressor, Prilosec, Nystatin, Titrate as needed, Haldol, Ativan, and Morphine. The patient's daughter also reports that the patient has a history of UTIs. Source of History: family (Daughter ) Onset: Today Position: other (Global ) Symptom Intensity: severe Timing: worsening Modifying Factors (Relieving): oxygen Note: Associated Symptoms: Hypoxia, distended abdomen, chest tightness, and christiansen appearance. Review of Systems See HPI for pertinent positives & negatives. A total of 10 systems reviewed and were otherwise negative. Past Medical & Surgical Medical Problems: (1) CKD (chronic kidney disease) stage 3, GFR 30-59 ml/min (2) Combined systolic and diastolic congestive heart failure (3) Complete heart block (4) Coronary artery disease (5) Diabetes mellitus, type II (6) Gangrene of foot (7) HTN (hypertension) (8) Perforated bowel (9) Peripheral neuropathy (10) Peripheral vascular disease (11) Severe aortic stenosis Surgical Problems: (1) S/P small bowel resection (2) Status post cholecystectomy (3) Status post exploratory laparotomy (4) Status post transmetatarsal amputation of foot Social History Problems: (1) Heart block AV second degree Family History No significant family history Social History Smoking Status: Never Smoker Alcohol Use: none Drug Use: none Marital Status: single, Housing Status: lives alone Occupation Status: retired Current/Historical Medications Scheduled Furosemide (Lasix), 80 MG PO DAILY Furosemide (Furosemide), 10 ML PO DAILY Insulin Aspart (Novolog), 4 UNITS SQ PRN/UD Insulin Glargine (Lantus), 8 UNITS SQ QPM Ipratropium-Albuterol (Duoneb), 1 TREATMENT INH Q4H Nystatin (Nystatin Suspension), PO UD Pantoprazole (Protonix), 40 MG PO DAILY Scopolamine (Transderm-Scop), 3 MG TD Q72H Scheduled PRN Ipratropium-Albuterol (Duoneb), 3 ML INH Q4H PRN for SOB/Wheezing Lorazepam (Ativan), 0.5 MG PO Q4H PRN for Agitation Morphine Sulfate (Morphine Sulfate), 0.25-1 ML PO Q1H PRN for Respiratory Distress/Pain Allergies Coded Allergies: No Known Allergies (Unverified , 09/23/17) Physical Exam Vital Signs Date Time Temp Pulse Resp B/P (MAP) Pulse Ox O2 Delivery O2 Flow Rate FiO2 09/23/17 07:19 37.0 62 16 105/64 100 09/23/17 06:31 62 16 105/64 100 Nasal Cannula 4.0 09/23/17 04:48 60 127/77 99 09/23/17 03:26 60 127/77 99 Nasal Cannula 4.0 09/23/17 03:13 60 09/23/17 02:19 66 12 127/77 99 Nebulizer 09/23/17 01:03 68 16 127/77 96 09/22/17 23:31 65 09/22/17 23:25 37.0 71 20 127/77 100 Nasal Cannula 4.0 Physical Exam GENERAL: Ill appearing, mild respiratory distress, nasal canula being worn. EYE EXAM: normal conjunctiva, PERRL and EOM's grossly intact OROPHARYNX: no exudate, no erythema, lips, buccal mucosa, and tongue normal and mucous membranes are moist NECK: supple, no nuchal rigidity, no adenopathy, non-tender LUNGS: Bilateral rales. Normal chest wall mechanics HEART: no murmurs, S1 normal and S2 normal ABDOMEN: abdomen soft, non-tender, normo-active bowel sounds, no masses, no rebound or guarding. Scattered areas of ecchymosis noted to abdomen consistent with recent injections of anticoagulation. Mild abdominal distention. BACK: Back is symmetrical on inspection and there is no deformity, no midline tenderness, no CVA tenderness. SKIN: no rashes and no bruising UPPER EXTREMITIES: upper extremities are grossly normal. LOWER EXTREMITIES: No pitting edema. NEURO EXAM: Normal sensorium, cranial nerves II-XII [grossly] intact, normal speech, no [gross] weakness of arms, no [gross] weakness of legs. Moves all extremities spontaneously. Mildly somnolent but easily aroused. Medical Decision & Procedures Medications Administered Medications (Trade) Dose Ordered Sig/Isaiah Route Start Time Stop Time Status Last Admin Dose Admin Morphine Sulfate (MoRPHine SULFATE INJ) 4 mg NOW STAT IV 09/23/17 00:13 09/23/17 00:14 DC 09/23/17 00:21 4 MG Morphine Sulfate (MoRPHine SULFATE INJ) 4 mg NOW STAT IV 09/23/17 01:06 09/23/17 01:08 DC 09/23/17 01:20 4 MG Albuterol/ Ipratropium (Duoneb) 3 ml NOW STAT INH 09/23/17 02:00 09/23/17 02:02 DC 09/23/17 02:10 3 ML Nitroglycerin (Nitroglycerin 2% Oint) 1 inch NOW ONCE EXT 09/23/17 02:00 09/23/17 02:02 DC 09/23/17 02:10 1 INCH Furosemide (Lasix Inj) 40 mg STK-MED ONCE .ROUTE 09/23/17 02:07 09/23/17 02:08 DC 09/23/17 02:10 40 MG Lorazepam (Ativan Inj) 0.5 mg NOW STAT IV 09/23/17 02:26 09/23/17 02:27 DC 09/23/17 02:36 0.5 MG Scopolamine (Transderm-Scop Patch) 1.5 mg NOW STAT TD 09/23/17 06:33 09/23/17 06:36 DC 09/23/17 06:51 1.5 MG Morphine Sulfate (Roxanol Oral Soln) 30 mg NOW STAT PO 09/23/17 06:33 09/23/17 06:36 DC 09/23/17 07:10 30 MG ED Course 0000: The patient was evaluated in room B10. A complete history and physical exam was performed. 0013: Ordered Morphine Sulfate 4mg IV. 0105: I reevaluated the patient. He still feels unwell with morphine. Will give more morphine to attempt to alleviate his symptoms. 0106: Ordered Morphine Sulfate 4mg IV 0153: I reevaluated the patient 0200: Ordered Furosemide 40mg/syringe 4 ml @ 4 mls/min IV, Nitroglycerine 1 inch EXT, and Duoneb 3ml INH. 0207: Ordered Furosemide 40mg. Medical Decision Patient seen here several weeks ago and admitted and ultimately transferred to [facility] for acute on chronic heart failure likely secondary to . Patient deemed no longer an appropriate surgical candidate for TAVR. Patient underwent a palliative care evaluation while admitted and was discharged yesterday to start home hospice. According to call from hospice nurse the medications were called into the [facility] however the family was not able to get there and get prescriptions filled to take home for the patient prior to them closing. They state they do have prescriptions they will be ready at 9 AM. Family here now concerned about patient's comfort due to complaints of chest pain and increased work of breathing. They do have an oxygenator at home. They would like to make patient comfortable and taken back home. Patient was given medications here including breathing treatments and another dose of Lasix after significant bedside discussion and request by the daughter. Time spent by both myself, case management, as well as the charge nurse and attempting to arrange transportation for the patient home. There were no available units to transport the patient and so he was signed out to the nighttime doc pending transportation home. Repeat as needed order for morphine was placed as a precaution. Medication Reconcilliation Current Medication List: was personally reviewed by me Blood Pressure Screening Patient's blood pressure: Normal blood pressure Impression Primary Impression: Chest pain Additional Impressions: Dyspnea Hospice care patient Severe aortic stenosis Scribe Attestation The scribe's documentation has been prepared under my direction and personally reviewed by me in its entirety. I confirm that the note above accurately reflects all work, treatment, procedures, and medical decision making performed by me. Departure Information Dispostion Home / Self-Care Prescriptions Furosemide (FUROSEMIDE) 8 Mg/Ml Sheryl 10 ML PO DAILY, #100 ML Prov: Mahendra Kong M.D. 09/23/17 Ipratropium-Albuterol (DUONEB) 3 Ml Nebu 1 TREATMENT INH Q4H for SOB/Wheezing, #1 BOX Prov: Mahendra Kong M.D. 09/23/17 Scopolamine (Transderm-Scop) 1 Mg/3 Days Dis 3 MG TD Q72H, #3 PATCH Prov: Mahendra Kong M.D. 09/23/17 Lorazepam (ATIVAN) 0.5 Mg Tab 0.5 MG PO Q4H Y for Agitation, #20 TAB Prov: Mahendra Kong M.D. 09/23/17 Morphine Sulfate (Morphine Sulfate) 20 Mg/1 Ml Soln 0.25-1 ML PO Q1H Y for Respiratory Distress/Pain, #10 ML Prov: Mahendra Kong M.D. 09/23/17 Referrals Ricki Juarez D.O. (PCP) Patient Instructions My [facility] Additional Instructions Please continue the medications started by hospice. Continue wearing the oxygen. You may eat and drink as tolerated. Please do not attempt to walk without assistance. Problem Qualifiers Primary Impression: Chest pain Chest pain type: unspecified Qualified Codes: R07.9 - Chest pain, unspecified Additional Impressions: Dyspnea Dyspnea type: shortness of breath Qualified Codes: R06.02 - Shortness of breath
[2017-09-23] MEDS ORDERED: ALBUT/IPRATROP 3MG/0.5MG NEB 3 ML VIAL INH STA ×2 (02:00→06:38)
[2017-09-23] MEDS ORDERED: NITROGLYCERIN 2% OINTMENT 30GM TUBE EXT ONE (02:00)
[2017-09-23] MEDS ORDERED: FUROSEMIDE INJ 40 MG in SYRINGE 0 ML IV ONE (02:00)
[2017-09-23] MEDS ORDERED: FUROSEMIDE 40 MG/4 ML VIAL ONE (02:07)
[2017-09-23] MEDS ORDERED: LORAZEPAM 2 MG/ML 1 ML VIAL IV STA (02:26)
[2017-09-23] MEDS ORDERED: PANT40TA PO (02:53)
[2017-09-23] MEDS ORDERED: FURO80TA63 PO (02:53)
[2017-09-23] MEDS ORDERED: NYSS/ PO (02:54)
[2017-09-23] MEDS ORDERED: MoRPHine SULFATE 4 MG/ML 1 ML CARP\\VIAL IV PRN (03:15)
[2017-09-23] MEDS ORDERED: MoRPHine SULFATE 15 MG/0.75 ML UDP PO STA (06:33)
[2017-09-23] MEDS ORDERED: SCOPOLAMINE 1.5 MG TDSY TD STA (06:33)
[2017-09-23] MEDS ORDERED: ATIVAN 1MG HOMEPACK PO ONE (06:45)
[2017-09-23] MEDS ORDERED: SCOP1.5D2 TD (06:51)
[2017-09-23] MEDS ORDERED: LORA-741 PO (06:51)
[2017-09-23] MEDS ORDERED: MRPL PO (06:51)
[2017-09-23] MEDS ORDERED: IPRASOL4 INH (06:53)
[2017-09-23] MEDS ORDERED: FURO8SOL PO (07:05)
[2017-09-23 07:19] VITALS: BP 105/64; PULSE 62; TEMP 37; O2SAT 100
--- NOTE | 2017-09-23 08:07 | EMERGENCY ROOM VISIT NOTE ---
ED Visit Note First contact with patient: 07:00 87 yr old male end of life patient on hospice who was discharged to home from [facility] yesterday, and then told by Hospice to go to nearest ER to get medications for his symptoms. Patient initially seen evaluated and discharged by Dr Galloway. Awaiting an ambulance to get him to home and then at 7 am when they arrived I was informed patient required multiple controlled medications and prescriptions to go home with as hospice will not be setting anything up until Monday (48 hrs). Family is quite upset about all of this and somewhat irate that this was not already done. I talked at length with them making them aware of my wish to help in situation. Case management gave my information from hospice requesting ER Provider to write Morphine 20mg/ml 0.25-1ml/1hr, Ativan .5mg q4h PRN, Scopolamine Patch q72hrs. Daughter requests Rx of Duoneb as well as liquid Lasix due to his inability to swallow well. We briefly discussed Atropine though we will defer this to hospice team. Furthermore, patient's family requests to go doses of Ativan, morphine and DuoNeb.
== END 2017-09-23 07:21 | disposition home or self-care (01) ==
LOC: EDBD 23:13 → C.EDB 23:16
DX: R07.9 Chest pain, unspecified (principal); R06.02 Shortness of breath; I35.0 Nonrheumatic aortic (valve) stenosis; I13.0 Hypertensive heart and chronic kidney disease with heart failure and stage 1 through stage 4 chronic kidney disease, or unspecified chronic kidney disease; N18.3 Chronic kidney disease, stage 3 (moderate); I50.40 Unspecified combined systolic (congestive) and diastolic (congestive) heart failure; I44.2 Atrioventricular block, complete; I25.10 Atherosclerotic heart disease of native coronary artery without angina pectoris; E11.40 Type 2 diabetes mellitus with diabetic neuropathy, unspecified; Z79.4 Long term (current) use of insulin; Z99.81 Dependence on supplemental oxygen; I73.9 Peripheral vascular disease, unspecified; Z90.49 Acquired absence of other specified parts of digestive tract; Z89.429 Acquired absence of other toe(s), unspecified side